=== PATIENT | female | born 1990 | race African-American/Black ===

== ENCOUNTER 2017-04-08 19:27 | Emergency (ER) | payer SELFPAY ==
[~2017-04-08] VITALS: Ht 167.6 cm; Wt 59.0 kg
[2017-04-08] MEDS ORDERED: IV NORMAL SALINE 1000ML BAG 1,000 ML IV SCH (19:35)
[2017-04-08] MEDS ORDERED: METOCLOPRAMIDE HCL 10 MG/2 ML VIAL. IV ONE (19:45)
[2017-04-08] MEDS ORDERED: ONDANSETRON PF 4 MG/2 ML VIAL. IV ONE (19:45)
[2017-04-08] MEDS ORDERED: fentaNYL PF VIAL 100 MCG/2 ML VIAL IV ONE (19:45)
--- NOTE | 2017-04-08 19:55 | PHYS DOC ---
Past Medical History Past Medical History: Diabetes-Type I, Other Additional Past Medical Histor: OVARIAN CYST,BLOOD CLOTS REMOVED FROM ABDOMEN Past Surgical History: Other Additional Past Surgical Histo: OVARIAN CYST REMOVED 03/24/17,BLOOD CLOTS REMOVED FROM ABDOMEN 03/19/17 Alcohol Use: None Drug Use: Marijuana Adult General Chief Complaint Chief Complaint: ABDOMINAL PAIN HPI HPI Patient is a 26 year old female brought to the ED by ambulance. The patient is complaining of abdominal pain, 10/10, which began today around noon. She has been vomiting since noon. The patient woke up and her stomach didn't feel very good this morning so she didn't have anything to eat and she didn't take her medicine. Then around noon, the pain and vomiting began. The patient has type 1 diabetes. Per EMS, her blood sugar was 364. They gave her 500 mL of saline and Zofran 4 mg. It seemed like the Zofran helped her vomiting for a short while during transit. The patient has had 2 surgeries recently at [facility]. She wanted to go there today, but they were closed due to multiple traumas in the ED. Her first surgery was March 27 and was for a twisted ovary with a cyst. The ovarian cyst was removed. She also had a surgery on April 04 for "blood clots" in her abdomen. From the description, it sounds like the patient had been having internal bleeding, there were "blood clots around her liver" that were removed. Patient's mom states that when she was admitted to the hospital on Wednesday with abdominal pain, her count was 24,000, after she had surgery and was released from the hospital on Wednesday, her white count was down to normal. Review of Systems Review of Systems Constitutional: Denies fever or chills [] Eyes: Denies change in visual acuity, redness, or eye pain [] HENT: Denies nasal congestion or sore throat [] Respiratory: Denies cough or shortness of breath [] Cardiovascular: Denies chest pain GI: As in history of present illness : denies Musculoskeletal: Denies back pain or joint pain [] Integument: Denies rash or skin lesions [] Neurologic: Denies headache, focal weakness or sensory changes [] Current Medications Current Medications Current Medications Medications (Trade) Dose Ordered Sig/Brianna Start Time Stop Time Status Last Admin Dose Admin Famotidine (Pepcid) 20 mg STK-MED ONCE 04/08/17 22:08 04/08/17 22:09 DC Fentanyl Citrate (Fentanyl 2ml Vial) 100 mcg 1X ONCE 04/08/17 19:45 04/08/17 19:46 DC 04/08/17 19:45 100 MCG Hydromorphone HCl (Dilaudid) 2 mg STK-MED ONCE 04/08/17 21:37 04/08/17 21:38 DC Info (Do NOT chart on this entry -- for MONITORING) 1 each PRN DAILY PRN 04/08/17 20:30 04/10/17 20:29 Insulin Human Regular 150 ml @ 0 mls/hr 1X ONCE 04/08/17 21:45 04/08/17 21:46 DC 04/08/17 21:45 6.2 MLS/HR Insulin Human Regular (NovoLIN R VIAL) 6 unit 1X ONCE 04/08/17 21:45 04/08/17 21:46 DC 04/08/17 21:45 6 UNIT Iohexol (Omnipaque 300 Mg/ml) 75 ml 1X ONCE 04/08/17 20:30 04/08/17 20:31 DC 04/08/17 20:37 75 ML Lorazepam (Ativan) 1 mg 1X ONCE 04/08/17 22:45 04/08/17 22:46 DC 04/08/17 22:45 1 MG Metoclopramide HCl (Reglan) 10 mg 1X ONCE 04/08/17 19:45 04/08/17 19:46 DC 04/08/17 19:45 10 MG Ondansetron HCl (Zofran) 4 mg 1X ONCE 04/08/17 19:45 04/08/17 19:46 DC 04/08/17 19:45 4 MG Piperacillin Sod/ Tazobactam Sod 3.375 gm/Sodium Chloride 50 ml @ 100 mls/hr 1X ONCE 04/08/17 22:00 04/08/17 22:29 DC 04/08/17 22:00 100 MLS/HR Potassium Chloride 100 ml @ 100 mls/hr Q1H 04/08/17 22:00 04/08/17 23:59 DC 04/08/17 21:58 100 MLS/HR Promethazine HCl 12.5 mg/Sodium Chloride 50.5 ml @ 151.5 mls/ hr PRN Q6HRS PRN 04/08/17 20:15 04/08/17 20:16 151.5 MLS/HR Sodium Chloride 1,000 ml @ 0 mls/hr 1X ONCE 04/08/17 22:30 04/08/17 22:31 DC 04/08/17 22:56 1,000 MLS/HR Allergies Allergies Allergies Coded Allergies Type Severity Reaction Last Updated Verified No Known Drug Allergies 04/08/17 No Physical Exam Physical Exam Constitutional: Actively vomiting stomach contents that does not appear bloody, rocking back and forth, appears very uncomfortable, alert, mentating normally. HENT: Normocephalic, atraumatic, bilateral external ears normal, nose normal. [] Eyes: conjunctiva normal, no discharge. [] Neck: Normal range of motion, no stridor. [] Cardiovascular:Heart rate regular rhythm, no murmur , tachycardic Lungs & Thorax: Bilateral breath sounds clear to auscultation [] Abdomen: Bowel sounds quiet to absent. Nondistended. Soft. Diffusely tender to light palpation. No rebound or guarding. Recent laparoscopy scars appear to be healing well, covered with skin adhesive. Skin: Warm, dry, no erythema, no rash. [] Back: No tenderness, no CVA tenderness. [] Extremities: No tenderness, no cyanosis, no clubbing, ROM intact, no edema. [] Neurologic: Alert and oriented X 3, normal motor function, normal sensory function, no focal deficits noted. [] Current Patient Data Vital Signs Vital Signs Date Time Temp Pulse Resp B/P (MAP) Pulse Ox O2 Delivery O2 Flow Rate FiO2 04/08/17 22:18 138 124/75 (91) 100 Room Air 04/08/17 20:15 24 04/08/17 19:27 98.0 98.0 Lab Values Laboratory Tests Test 04/08/17 19:16 04/08/17 19:55 04/08/17 20:10 04/08/17 21:53 POC Urine HCG, Qualitative Hcg negative (Negative) White Blood Count 18.3 x10^3/uL (4.0-11.0) H Red Blood Count 3.94 x10^6/uL (3.50-5.40) Hemoglobin 11.1 g/dL (12.0-15.5) L Hematocrit 35.1 % (36.0-47.0) L Mean Corpuscular Volume 89 fL (79-100) Mean Corpuscular Hemoglobin 28 pg (25-35) Mean Corpuscular Hemoglobin Concent 32 g/dL (31-37) Red Cell Distribution Width 14.6 % (11.5-14.5) H Platelet Count 563 x10^3/uL (140-400) H Neutrophils (%) (Auto) 87 % (31-73) H Lymphocytes (%) (Auto) 8 % (24-48) L Monocytes (%) (Auto) 4 % (0-9) Eosinophils (%) (Auto) 0 % (0-3) Basophils (%) (Auto) 1 % (0-3) Neutrophils # (Auto) 16.0 x10^3uL (1.8-7.7) H Lymphocytes # (Auto) 1.5 x10^3/uL (1.0-4.8) Monocytes # (Auto) 0.7 x10^3/uL (0.0-1.1) Eosinophils # (Auto) 0.0 x10^3/uL (0.0-0.7) Basophils # (Auto) 0.1 x10^3/uL (0.0-0.2) Segmented Neutrophils % 90 % (35-66) H Band Neutrophils % 2 % (0-9) Lymphocytes % 8 % (24-48) L Platelet Estimate Increased (ADEQUATE) [place] Cells Present Sodium Level 137 mmol/L (136-145) Potassium Level 4.0 mmol/L (3.5-5.1) Chloride Level 101 mmol/L (98-107) Carbon Dioxide Level 12 mmol/L (21-32) L Anion Gap 24 (6-14) H Blood Urea Nitrogen 8 mg/dL (7-20) Creatinine 0.9 mg/dL (0.6-1.0) Estimated GFR (Cockcroft-Gault) 90.9 BUN/Creatinine Ratio 9 (6-20) Glucose Level 402 mg/dL (70-99) H Calcium Level 9.1 mg/dL (8.5-10.1) Total Bilirubin 0.4 mg/dL (0.2-1.0) Aspartate Amino Transferase (AST) 13 U/L (15-37) L Alanine Aminotransferase (ALT) 14 U/L (14-59) Alkaline Phosphatase 62 U/L (46-116) Total Protein 7.9 g/dL (6.4-8.2) Albumin 3.6 g/dL (3.4-5.0) Albumin/Globulin Ratio 0.8 (1.0-1.7) L Lipase 117 U/L (73-393) Urine Collection Type Unknown Urine Color Yellow Urine Clarity Clear Urine pH 6.0 Urine Specific [place] 1.025 Urine Protein Negative mg/dL (NEG-TRACE) Urine Glucose (UA) >=1000 mg/dL (NEG) Urine Ketones (Stick) >=80 mg/dL (NEG) Urine Blood Large (NEG) Urine Nitrite Negative (NEG) Urine Bilirubin Negative (NEG) Urine Urobilinogen Dipstick 0.2 mg/dL (0.2 mg/dL) Urine Leukocyte Esterase Negative (NEG) Urine RBC >40 /HPF (0-2) Urine WBC 1-4 /HPF (0-4) Urine Squamous Epithelial Cells Few /LPF Urine Bacteria 0 /HPF (0-FEW) Glucose (Fingerstick) 368 mg/dL (70-99) H Test 04/08/17 22:11 Lactic Acid Level 3.3 mmol/L (0.4-2.0) H Laboratory Tests 04/08/17 19:55 Laboratory Tests 04/08/17 19:55 EKG EKG [] Radiology/Procedures Radiology/Procedures [] Course & Med Decision Making Course & Med Decision Making Pertinent Labs and Imaging studies reviewed. (See chart for details) Patient was medicated with IV fentanyl, Zofran, Phenergan, for pain and vomiting. She was given a liter of IV saline. She continued to be uncomfortable but was able to stop vomiting. White count 18 but she has been vomiting for 6 hours, which could account for that. Her CO2 is 12 and blood sugar is elevated in the 400s. I am initially treating this with a fluid bolus. I discussed the case with Dr. Komal Edwards, [employer] surgeon at [facility]. She was very familiar with the patient's case. She stated that if this turns out to be a surgical problem or something related to her recent surgeries, they would be glad to accept the patient in transfer. At this time, I am pending CT results to make that decision. (The reason [facility] was on diversion was ED traumas, not bed availability). I'm signing the patient out to Dr. Hank Mcleod at change of shift. He will evaluate CT results. ER attending note Dr. Pierce Mcleod Care assumed by me at 2100 patient tachycardic with laboratory findings consistent with metabolic acidosis and hyperglycemia with elevated anion gap suspicious for DKA. IV fluids being administered. Urinalysis returns with positive ketones. Insulin bolus and drip initiated. Patient has some urine output and potassium was initially 4.0 so supplementation was arranged at [address] results show complex collection of air and fluid behind the uterus possibly consistent with abscess. Given patient's white blood cell count of 18.3 and the state of her critical illness transfer to [facility] appropriate so patient can receive surgical consultation and care including surgical intervention as needed by her surgery team. This was patient and mother's intention when calling EMS however EMS was unable to take them there at that time because that hospital was on diversion. There is discussed with Reema Melendez nurse practitioner for Dr. Say Long at [facility]. Ms. Melendez is aware of history and findings and accept patient in transfer to the ICU on behalf of Dr. Long. They're aware of the history and findings and interventions made to this point and agree with no further workup or treatment at this time prior to transfer. Critical care 35 minutes [] Dragon Disclaimer Dragon Disclaimer This electronic medical record was generated, in whole or in part, using a voice recognition dictation system. Departure Departure Impression: Primary Impression: Diabetic ketoacidosis Additional Impressions: Tachycardia Metabolic acidosis Leukocytosis Systemic inflammatory response syndrome (SIRS) Problem Qualifiers ANTHONY SWAN MD Apr 08, 2017 19:55 PIERCE MCLEOD MD Apr 09, 2017 02:34
[2017-04-08 20:03] LABS: BASO # 0.1 x10^3/uL (0.0-0.2); BASO % 1 % (0-3); EOS % 0 % (0-3); HEMATOCRIT 35.1 % (36.0-47.0); HEMOGLOBIN 11.1 g/dL (12.0-15.5); LYMPH # 1.5 x10^3/uL (1.0-4.8); LYMPH % 8 % (24-48); MEAN CORPUSCULAR HEMOGLOBIN 28 pg (25-35); MEAN CORPUSCULAR HGB CONC 32 g/dL (31-37); MEAN CORPUSCULAR VOLUME 89 fL (79-100); MONO % 4 % (0-9); NEUT % 87 % (31-73); PLATELET COUNT 563 x10^3/uL (140-400); RED BLOOD COUNT 3.94 x10^6/uL (3.50-5.40); RED CELL DISTRIBUTION WIDTH 14.6 % (11.5-14.5); WHITE BLOOD COUNT 18.3 x10^3/uL (4.0-11.0)
[2017-04-08] MEDS ORDERED: PROMETHAZINE 12.5 MG in IV NORMAL SALINE 50ML 50 ML IV PRN (20:15)
[2017-04-08] MEDS: fentaNYL PF VIAL 100 MCG/2 ML VIAL IV PRN ×2 (20:16→20:52)
[2017-04-08 20:25] LABS: ALBUMIN 3.6 g/dL (3.4-5.0); ALBUMIN/GLOBULIN RATIO 0.8 (1.0-1.7); CALCIUM 9.1 mg/dL (8.5-10.1); CREATININE 0.9 mg/dL (0.6-1.0); TOTAL PROTEIN 7.9 g/dL (6.4-8.2)
[2017-04-08 20:26] LABS: GFR 90.9; TOTAL BILIRUBIN 0.4 mg/dL (0.2-1.0)
[2017-04-08 20:29] LABS: BURR CELLS PRESENT; PLT ESTIMATE INCREASED (ADEQUATE)
[2017-04-08] MEDS ORDERED: IOHEXOL 300 MG/ML 75 ML VIAL IV ONE (20:30)
[2017-04-08] MEDS ORDERED: CONTRAST GIVEN MC PRN (20:30)
[2017-04-08 20:57] LABS: BILIRUBIN,URINE NEGATIVE (NEG); GLUCOSE,URINE >=1000 mg/dL (NEG); NITRITE,URINE NEGATIVE (NEG); PROTEIN,URINE NEGATIVE (NEG-TRACE); UROBILINOGEN,URINE 0.2 mg/dL (0.2 mg/dL)
--- NOTE | 2017-04-08 21:01 | RAD ---
CT Abdomen and Pelvis With Intravenous Contrast: History: Severe abdominal pain, nausea and vomiting. Recent surgery. Leukocytosis. Comparison: None. Technique: After administration of intravenous contrast administration, 75 mL Omnipaque-300, CT of the abdomen and pelvis was performed. Exposure: One or more of the following individualized dose reduction techniques were utilized for this examination: 1. Automated exposure control 2. Adjustment of the mA and/or kV according to patient size 3. Use of iterative reconstruction technique Findings: Evaluation of enteric structures may be limited by lack of oral contrast. Evaluation for abscess is limited secondary to lack of oral contrast. Liver, spleen, pancreas, gallbladder, and bilateral adrenal glands unremarkable. Bilateral kidneys enhance symmetrically. No bowel obstruction is identified. Appendix is thought visualized and is without evidence of inflammation. Urinary bladder demonstrates some foci of intraluminal gas, thought likely secondary to recent catheterization. There is a small amount of free pneumoperitoneum, thought to likely postsurgical. There may be a peripherally enhancing fluid collection posterior to the urinary bladder in the pelvis. A few foci of intraluminal gas are suspected. This fluid collection could measure up to about 8 x 3 cm in axial dimension x 3.5 cm in craniocaudal dimension. It is is thought less likely to represent bowel loop, although that remains a possibility. Impression: 1. Significantly limited examination secondary to lack of oral contrast. 2. There may be a extraluminal gas and fluid collection posterior to the uterus. Consequently, this could represent abscess formation. That this could represent a bowel loop is possible, but thought less likely. Electronically signed by: Pierce Fuller MD (04/08/2017 8:58 PM)
[2017-04-08 21:02] LABS: BACTERIA,URINE 0 /HPF (0-FEW); RBC,URINE >40 /HPF (0-2); SQUAMOUS EPITHELIAL CELL,UR FEW /LPF
[2017-04-08] MEDS ORDERED: HYDROmorphone 2 MG/ML VIAL ONE (21:37)
[2017-04-08] MEDS ORDERED: INSULIN REGULAR 100 UNIT/ML 10ML VIAL. IV ONE (21:45)
[2017-04-08] MEDS ORDERED: INSULIN,REGULAR 150 UNIT DRIP 150 ML IV ONE (21:45)
[2017-04-08] MEDS ORDERED: HYDROmorphone 2 MG/ML VIAL IV ONE (21:45)
[2017-04-08] MEDS ORDERED: IV NORMAL SALINE 1000ML BAG 1,000 ML IV ONE ×2 (21:45→22:30)
[2017-04-08] MEDS ORDERED: POTASSIUM CHLORIDE 10MEQ 100 ML IV SCH (22:00)
[2017-04-08] MEDS ORDERED: PIPERACILLIN/TAZOBACTAM 3.375 GM in IV NORMAL SALINE 50ML 50 ML IV ONE (22:00)
[2017-04-08] MEDS ORDERED: FAMOTIDINE 20 MG/2 ML VIAL ONE (22:08)
[2017-04-08] MEDS ORDERED: FAMOTIDINE 20 MG/2 ML VIAL IVP ONE (22:15)
[2017-04-08 22:18] VITALS: BP 124/75
== END 2017-04-08 22:57 | disposition short-term general hospital (02) ==
LOC: ER 19:27 → MERGE 19:27 → ER 22:57
DX: E10.10 Type 1 diabetes mellitus with ketoacidosis without coma (principal); R00.0 Tachycardia, unspecified; E87.2 Acidosis; D72.829 Elevated white blood cell count, unspecified; R65.10 Systemic inflammatory response syndrome (SIRS) of non-infectious origin without acute organ dysfunction; F12.10 Cannabis abuse, uncomplicated
CPT/HCPCS: 36415; 74177; 80053; 81001; 81025; 82962; 83605; 83690; 85007; 85027; 87040; 96365; 96367; 96368; 96375; 96376; 99291; J1170; J1815; J2060; J2405; J2543; J2550; J2765; J3010; J3480; J7030; Q9967; S0028

== ENCOUNTER 2017-07-11 00:45 | Emergency (ER) | payer SELFPAY ==
[~2017-07-11] VITALS: Ht 167.6 cm; Wt 60.3 kg
[2017-07-11] MEDS ORDERED: IV NORMAL SALINE 1000ML BAG 1,000 ML IV ONE ×2 (01:00→03:30)
[2017-07-11 02:07] LABS: BILIRUBIN,URINE NEGATIVE (NEG); GLUCOSE,URINE >=1000 mg/dL (NEG); NITRITE,URINE NEGATIVE (NEG); PH,URINE 6.5; PROTEIN,URINE NEGATIVE (NEG-TRACE); UROBILINOGEN,URINE 0.2 mg/dL (0.2 mg/dL)
--- NOTE | 2017-07-11 02:11 | PHYS DOC ---
Past Medical History Past Medical History: Diabetes-Type I, Other Additional Past Medical Histor: OVARIAN CYST,BLOOD CLOTS REMOVED FROM ABDOMEN, "SPOTS ON LIVER" Past Surgical History: Other Additional Past Surgical Histo: OVARIAN CYST REMOVED 03/24/17,BLOOD CLOTS REMOVED FROM ABDOMEN 04/04/17 Alcohol Use: None Drug Use: Marijuana Adult General Chief Complaint Chief Complaint: ABDOMINAL PAIN HPI HPI Patient is a 26 year old female presents with complaints of abdominal pain and cramping as well as vomiting that is described as being nonbloody. No diarrhea. Patient is a diabetic and she states that her blood sugars have been between 100 and 150 the last couple days. Patient denies any fevers, chills, rashes, trauma, sick contacts. Patient states she tried to take by mouth's but she was unable to hold on fluids. Patient states she feels dehydrated. Review of Systems Review of Systems Constitutional: Denies fever or chills [] Eyes: Denies change in visual acuity, redness, or eye pain [] HENT: Denies nasal congestion or sore throat [] Respiratory: Denies cough or shortness of breath [] Cardiovascular: No chest pain GI: Denies bloody stools or diarrhea . Distal abdominal pain cramping, just vomiting : Denies dysuria or hematuria or vaginal discharge Musculoskeletal: Denies back pain or joint pain [] Integument: Denies rash or skin lesions [] Neurologic: Denies headache, focal weakness or sensory changes [] Endocrine: Denies polyuria. Yes to thirst Current Medications Current Medications Current Medications Medications (Trade) Dose Ordered Sig/Brianna Start Time Stop Time Status Last Admin Dose Admin Hyoscyamine (Anaspaz) 0.125 mg PRN Q4HRS PRN 07/11/17 02:15 07/11/17 02:26 0.125 MG Insulin Human Regular (NovoLIN R VIAL) 8 unit 1X ONCE 07/11/17 03:30 07/11/17 03:31 DC 07/11/17 03:43 8 UNIT Ketorolac Tromethamine (Toradol) 15 mg 1X ONCE 07/11/17 03:45 07/11/17 03:46 DC 07/11/17 03:44 15 MG Ondansetron HCl (Zofran) 4 mg 1X ONCE 07/11/17 04:30 07/11/17 04:31 Sodium Chloride 1,000 ml @ 1,000 mls/hr 1X ONCE 07/11/17 03:30 07/11/17 04:29 07/11/17 03:44 1,000 MLS/HR Allergies Allergies Allergies Coded Allergies Type Severity Reaction Last Updated Verified No Known Drug Allergies 01/23/16 No Physical Exam Physical Exam Constitutional: Well developed, well nourished, mild distress, non-toxic appearance. [] HENT: Normocephalic, atraumatic, oropharynx dry, no oral exudates, nose normal. [] Eyes: , EOMI, conjunctiva normal, no discharge. [] Neck: Normal range of motion, no tenderness, trachea midline, no stridor. [] Cardiovascular:Heart rate regular rhythm, no murmur, equal pulses, normal perfusion Lungs & Thorax: Bilateral breath sounds clear to auscultation, no tachypnea Abdomen: Bowel sounds normal, soft, mild and diffuse tenderness without guarding or rebound, no masses, no pulsatile masses. [] Skin: Warm, dry, no erythema, no rash. [] Back: No tenderness, no CVA tenderness. [] Extremities: No tenderness, no cyanosis, no DVT, ROM intact, no edema. [] Neurologic: Alert and oriented X 3, normal motor function, ambulates with normal gait and without assistance, no focal deficits noted. [] Psychologic: Affect normal, judgement normal, mood normal. [] Current Patient Data Vital Signs Vital Signs Date Time Temp Pulse Resp B/P (MAP) Pulse Ox O2 Delivery O2 Flow Rate FiO2 07/11/17 01:20 100.8 81 20 130/82 (98) 100 Room Air 100.8 Lab Values Laboratory Tests Test 07/11/17 01:00 07/11/17 01:38 07/11/17 02:00 Urine Collection Type Unknown Urine Color Yellow Urine Clarity Clear Urine pH 6.5 Urine Specific [place] >=1.030 Urine Protein Negative mg/dL (NEG-TRACE) Urine Glucose (UA) >=1000 mg/dL (NEG) Urine Ketones (Stick) 40 mg/dL (NEG) Urine Blood Negative (NEG) Urine Nitrite Negative (NEG) Urine Bilirubin Negative (NEG) Urine Urobilinogen Dipstick 0.2 mg/dL (0.2 mg/dL) Urine Leukocyte Esterase Negative (NEG) Urine RBC 1-2 /HPF (0-2) Urine WBC 5-10 /HPF (0-4) Urine Squamous Epithelial Cells Mod /LPF Urine Bacteria Few /HPF (0-FEW) Urine Opiates Screen Pos (NEG) Urine Methadone Screen Neg (NEG) Urine Barbiturates Neg (NEG) Urine Phencyclidine Screen Neg (NEG) Urine Amphetamine/Methamphetamine Neg (NEG) Urine Benzodiazepines Screen Neg (NEG) Urine Cocaine Screen Neg (NEG) Urine Cannabinoids Screen Pos (NEG) Urine Ethyl Alcohol Neg (NEG) POC Urine HCG, Qualitative Hcg negative (Negative) White Blood Count 15.0 x10^3/uL (4.0-11.0) H Red Blood Count 4.11 x10^6/uL (3.50-5.40) Hemoglobin 10.6 g/dL (12.0-15.5) L Hematocrit 32.9 % (36.0-47.0) L Mean Corpuscular Volume 80 fL (79-100) Mean Corpuscular Hemoglobin 26 pg (25-35) Mean Corpuscular Hemoglobin Concent 32 g/dL (31-37) Red Cell Distribution Width 15.4 % (11.5-14.5) H Platelet Count 253 x10^3/uL (140-400) Neutrophils (%) (Auto) 91 % (31-73) H Lymphocytes (%) (Auto) 6 % (24-48) L Monocytes (%) (Auto) 2 % (0-9) Eosinophils (%) (Auto) 0 % (0-3) Basophils (%) (Auto) 0 % (0-3) Neutrophils # (Auto) 13.7 x10^3uL (1.8-7.7) H Lymphocytes # (Auto) 0.9 x10^3/uL (1.0-4.8) L Monocytes # (Auto) 0.3 x10^3/uL (0.0-1.1) Eosinophils # (Auto) 0.0 x10^3/uL (0.0-0.7) Basophils # (Auto) 0.0 x10^3/uL (0.0-0.2) Platelet Estimate Pending Sodium Level 138 mmol/L (136-145) Potassium Level 3.6 mmol/L (3.5-5.1) Chloride Level 101 mmol/L (98-107) Carbon Dioxide Level 21 mmol/L (21-32) Anion Gap 16 (6-14) H Blood Urea Nitrogen 7 mg/dL (7-20) Creatinine 0.8 mg/dL (0.6-1.0) Estimated GFR (Cockcroft-Gault) 104.1 BUN/Creatinine Ratio 9 (6-20) Glucose Level 353 mg/dL (70-99) H Calcium Level 9.0 mg/dL (8.5-10.1) Total Bilirubin 0.3 mg/dL (0.2-1.0) Aspartate Amino Transferase (AST) 29 U/L (15-37) Alanine Aminotransferase (ALT) 31 U/L (14-59) Alkaline Phosphatase 85 U/L (46-116) Total Protein 7.6 g/dL (6.4-8.2) Albumin 3.6 g/dL (3.4-5.0) Albumin/Globulin Ratio 0.9 (1.0-1.7) L Laboratory Tests 07/11/17 02:00 Laboratory Tests 07/11/17 02:00 EKG EKG [] Radiology/Procedures Radiology/Procedures [] Course & Med Decision Making Course & Med Decision Making Pertinent Labs and Imaging studies reviewed. (See chart for details) [id number] patient in no distress, resting comfortably. Heart rate 95. No vomiting in the ED. I asked the patient was last and she is she to go. Medication she says she has been taking any I ask a couple more times and then she said that 3 days ago she had taking an unknown pain medication for headache by her grandmother supplied by her with. Abdomen remains soft and nondistended, very mild tenderness that is diffuse without guarding or rebound. The patient is not exhibiting any clinical signs of the DKA Patient looks well and comfortable. After the treatment in the ED a do not believe the patient needs any further inpatient evaluation and she is stable and improved for follow-up as an outpatient. I had long discussion with the patient regarding avoidance of drugs as they may be contributing to her presentation today. I suspicion for a significant intra-abdominal pathology or infectious pathology or metabolic derangement that needs immediate in patient care is very low at the time of this ED evaluation given the exam and vital signs as well as the lab results. The patient understands the need to follow-up and she agrees to do so as directed follow up is to be in one day [] Steffen Disclaimer Steffen Disclaimer This electronic medical record was generated, in whole or in part, using a voice recognition dictation system. Departure Departure Impression: Primary Impression: Hyperglycemia Additional Impressions: Dehydration Nausea & vomiting Cannabinoid hyperemesis syndrome Disposition: 01 HOME, SELF-CARE Condition: IMPROVED Referrals: NO PCP (PCP) Patient Instructions: Dehydration, Adult, [id number], Hyperglycemia, Easy-to- Read, Marijuana Abuse-Brief, Nausea and Vomiting, [id number] Additional Instructions: Please follow-up with your PCP for recheck and reevaluation in 1 day, you may also follow-up at one of the [place] in the list provided to you. If your symptoms worsen or new concerning symptoms develop please return to the ED immediately. Scripts Ondansetron Hcl (ZOFRAN) 4 Mg Tablet 1 TAB PO Q8HRS for 5 Days, #15 TAB Prov: Aldair PINZON MD 07/11/17 Hyoscyamine Sulfate (LEVSIN) 0.125 Mg Tablet 1 TAB PO TID, #20 TAB 1 Refill Prov: Aldair PINZON MD 07/11/17 Problem Qualifiers Aldair PINZON MD Jul 11, 2017 02:11
[2017-07-11] MEDS ORDERED: HYOSCYAMINE 0.125 MG TAB.RAPDIS PO PRN (02:15)
[2017-07-11 02:22] LABS: BACTERIA,URINE FEW /HPF (0-FEW); SQUAMOUS EPITHELIAL CELL,UR MOD /LPF
[2017-07-11] MEDS ORDERED: KETOROLAC 15 MG/ML VIAL. IV ONE ×2 (02:30→03:45)
[2017-07-11] MEDS ORDERED: ONDANSETRON PF 4 MG/2 ML VIAL. IV ONE ×2 (02:30→04:30)
[2017-07-11 02:38] LABS: BASO % 0 % (0-3); EOS % 0 % (0-3); HEMATOCRIT 32.9 % (36.0-47.0); HEMOGLOBIN 10.6 g/dL (12.0-15.5); LYMPH # 0.9 x10^3/uL (1.0-4.8); LYMPH % 6 % (24-48); MEAN CORPUSCULAR HEMOGLOBIN 26 pg (25-35); MEAN CORPUSCULAR HGB CONC 32 g/dL (31-37); MEAN CORPUSCULAR VOLUME 80 fL (79-100); MONO % 2 % (0-9); NEUT % 91 % (31-73); PLATELET COUNT 253 x10^3/uL (140-400); RED BLOOD COUNT 4.11 x10^6/uL (3.50-5.40); RED CELL DISTRIBUTION WIDTH 15.4 % (11.5-14.5)
[2017-07-11 02:40] LABS: BARBITURATES NEG (NEG); BENZODIAZEPINES NEG (NEG); CANNABINOIDS POS (NEG); COCAINE NEG (NEG); METHADONE NEG (NEG); OPIATES POS (NEG); PHENCYCLIDINE NEG (NEG)
[2017-07-11 02:51] LABS: CREATININE 0.8 mg/dL (0.6-1.0); GFR 104.1; POTASSIUM 3.6 mmol/L (3.5-5.1)
[2017-07-11 02:58] LABS: ALBUMIN 3.6 g/dL (3.4-5.0); ALBUMIN/GLOBULIN RATIO 0.9 (1.0-1.7); TOTAL BILIRUBIN 0.3 mg/dL (0.2-1.0); TOTAL PROTEIN 7.6 g/dL (6.4-8.2)
[2017-07-11] MEDS ORDERED: INSULIN REGULAR 100 UNIT/ML 10ML VIAL. IV ONE (03:30)
[2017-07-11 03:58] LABS: % EOS 2 % (0-5); PLT ESTIMATE ADEQUATE (ADEQUATE)
[2017-07-11 04:02] VITALS: BP 130/77
[2017-07-11] MEDS ORDERED: HYOS0.1264 PO (04:05)
[2017-07-11] MEDS ORDERED: ONDA4TAB7 PO (04:05)
== END 2017-07-11 04:28 | disposition home or self-care (01) ==
LOC: ER 00:45
DX: E86.0 Dehydration (principal); R10.84 Generalized abdominal pain; R11.2 Nausea with vomiting, unspecified; E10.65 Type 1 diabetes mellitus with hyperglycemia; T40.7X5A Adverse effect of cannabis (derivatives), initial encounter; Y92.89 Other specified places as the place of occurrence of the external cause
CPT/HCPCS: 36415; 80053; 80307; 81001; 81025; 82962; 85007; 85025; 87086; 96361; 96374; 96375; 96376; 99285; J1815; J1885; J2405; J7030; G0479

== ENCOUNTER 2019-07-06 09:17 | Inpatient (IN) | payer SELFPAY ==
[~2019-07-06] VITALS: Ht 162.6 cm; Wt 59.9 kg
[~2019-07-06 09:17] MED LIST: HYOS0.1264 PO; ONDA4TAB7 PO
[2019-07-06] MEDS ORDERED: FAMOTIDINE 20 MG/2 ML VIAL IVP ONE (10:15)
[2019-07-06] MEDS ORDERED: IV NORMAL SALINE 1000ML BAG 1,000 ML IV ONE ×2 (10:15→11:30)
[2019-07-06] MEDS ORDERED: ONDANSETRON PF 4 MG/2 ML VIAL. IV ONE (10:15)
--- NOTE | 2019-07-06 10:17 | PHYS DOC ---
Past Medical History Past Medical History: Diabetes-Type I, Other Additional Past Medical Histor: OVARIAN CYST,BLOOD CLOTS REMOVED FROM ABDOMEN, "SPOTS ON LIVER" Past Surgical History: Other Additional Past Surgical Histo: OVARIAN CYST REMOVED 03/24/17,BLOOD CLOTS REMOVED FROM ABDOMEN 04/04/17 Alcohol Use: None Drug Use: Marijuana Social History Narrative: smells strongly of marijuana, denies use today Adult General Chief Complaint Chief Complaint: NAUSEA/VOMITING/DIARRHA HPI HPI Patient is a 28 year old female with a history of diabetes type 1 who presents to the ED today complaining of moderate generalized abdominal pain with nausea, vomiting that began a couple days ago. Patient states she was discharged from [facility] yesterday, where she had been admitted for 3 days. She states they did not do anything for her during her admission at . Patient states she's continued to have nausea and vomiting through the night as well as abdominal pain. She is very restless currently crying out in pain. She is also complaining of hematemesis. Denies any diarrhea. She will not answer most of the questions. Review of Systems Review of Systems Constitutional: Denies fever or chills [] Eyes: Denies change in visual acuity, redness, or eye pain [] HENT: Denies nasal congestion or sore throat [] Respiratory: Denies cough or shortness of breath [] Cardiovascular: No additional information not addressed in HPI [] GI: Reports abdominal pain, nausea and vomiting. Denies diarrhea [] : Denies dysuria or hematuria [] Musculoskeletal: Denies back pain or joint pain [] Integument: Denies rash or skin lesions [] Neurologic: Denies headache, focal weakness or sensory changes [] All other systems were reviewed and found to be within normal limits, except as documented in this note. Current Medications Current Medications Current Medications Medications (Trade) Dose Ordered Sig/Brianna Start Time Stop Time Status Last Admin Dose Admin Famotidine (Pepcid Vial) 20 mg 1X ONCE 07/06/19 10:15 07/06/19 10:16 DC 07/06/19 10:17 20 MG Haloperidol Lactate (Haldol Inj) 5 mg 1X ONCE 07/06/19 11:15 07/06/19 11:16 DC 07/06/19 11:36 5 MG Insulin Human Regular (HumuLIN R VIAL) 5 unit 1X ONCE 07/06/19 11:30 07/06/19 11:31 DC 07/06/19 11:42 5 UNIT Metoclopramide HCl (Reglan Vial) 10 mg 1X ONCE 07/06/19 14:00 07/06/19 14:01 DC 07/06/19 13:47 10 MG Ondansetron HCl (Zofran) 4 mg 1X ONCE 07/06/19 10:15 07/06/19 10:16 DC 07/06/19 10:15 4 MG Prochlorperazine Edisylate (Compazine) 10 mg 1X ONCE 07/06/19 11:15 07/06/19 11:16 DC 07/06/19 11:33 10 MG Sodium Chloride 1,000 ml @ 125 mls/hr 1X ONCE 07/06/19 11:30 07/06/19 19:29 07/06/19 11:39 125 MLS/HR Allergies Allergies Allergies Coded Allergies Type Severity Reaction Last Updated Verified No Known Drug Allergies 01/23/16 No Physical Exam Physical Exam Constitutional: Well developed, well nourished, no acute distress, non-toxic appearance. [] HENT: Normocephalic, atraumatic, bilateral external ears normal, oropharynx moist, no oral exudates, nose normal. [] Eyes: PERRLA, EOMI, conjunctiva normal, no discharge. [] Neck: Normal range of motion, no tenderness, supple, no stridor. [] Cardiovascular:Heart rate regular rhythm, no murmur [] Lungs & Thorax: Bilateral breath sounds clear to auscultation [] Abdomen: Bowel sounds normal, soft, diffuse tenderness throughout the abdomen, no masses, no pulsatile masses. [] Skin: Warm, dry, no erythema, no rash. [] Back: No tenderness, no CVA tenderness. [] Extremities: No tenderness, no cyanosis, no clubbing, ROM intact, no edema. [] Neurologic: Alert and oriented X 3, normal motor function, normal sensory function, no focal deficits noted. [] Psychologic: Restless, crying out loud, thrashing around in bed Current Patient Data Vital Signs Vital Signs Date Time Temp Pulse Resp B/P (MAP) Pulse Ox O2 Delivery O2 Flow Rate FiO2 07/06/19 13:49 104 20 122/84 (97) 98 Room Air 07/06/19 09:33 97.3 97.3 Lab Values Laboratory Tests Test 07/06/19 10:20 07/06/19 13:20 07/06/19 13:25 White Blood Count 12.3 x10^3/uL (4.0-11.0) H Red Blood Count 4.34 x10^6/uL (3.50-5.40) Hemoglobin 12.3 g/dL (12.0-15.5) Hematocrit 37.1 % (36.0-47.0) Mean Corpuscular Volume 86 fL (79-100) Mean Corpuscular Hemoglobin 28 pg (25-35) Mean Corpuscular Hemoglobin Concent 33 g/dL (31-37) Red Cell Distribution Width 14.7 % (11.5-14.5) H Platelet Count 305 x10^3/uL (140-400) Neutrophils (%) (Auto) 90 % (31-73) H Lymphocytes (%) (Auto) 7 % (24-48) L Monocytes (%) (Auto) 3 % (0-9) Eosinophils (%) (Auto) 0 % (0-3) Basophils (%) (Auto) 1 % (0-3) Neutrophils # (Auto) 11.0 x10^3/uL (1.8-7.7) H Lymphocytes # (Auto) 0.8 x10^3/uL (1.0-4.8) L Monocytes # (Auto) 0.4 x10^3/uL (0.0-1.1) Eosinophils # (Auto) 0.0 x10^3/uL (0.0-0.7) Basophils # (Auto) 0.1 x10^3/uL (0.0-0.2) Segmented Neutrophils % 94 % (35-66) H Lymphocytes % 6 % (24-48) L Platelet Estimate Adequate (ADEQUATE) Sodium Level 139 mmol/L (136-145) Potassium Level 3.5 mmol/L (3.5-5.1) Chloride Level 100 mmol/L (98-107) Carbon Dioxide Level 26 mmol/L (21-32) Anion Gap 13 (6-14) Blood Urea Nitrogen 6 mg/dL (7-20) L Creatinine 0.8 mg/dL (0.6-1.0) Estimated GFR (Cockcroft-Gault) 102.6 BUN/Creatinine Ratio 8 (6-20) Glucose Level 323 mg/dL (70-99) H Calcium Level 9.2 mg/dL (8.5-10.1) Total Bilirubin 0.3 mg/dL (0.2-1.0) Aspartate Amino Transferase (AST) 26 U/L (15-37) Alanine Aminotransferase (ALT) 26 U/L (14-59) Alkaline Phosphatase 76 U/L (46-116) Total Protein 7.8 g/dL (6.4-8.2) Albumin 3.7 g/dL (3.4-5.0) Albumin/Globulin Ratio 0.9 (1.0-1.7) L Lipase 63 U/L (73-393) L Ethyl Alcohol Level < 10 mg/dL (0-10) Urine Collection Type Unknown Urine Color Yellow Urine Clarity Clear Urine pH 5.5 Urine Specific [place] >=1.030 Urine Protein Negative mg/dL (NEG-TRACE) Urine Glucose (UA) >=1000 mg/dL (NEG) Urine Ketones (Stick) 40 mg/dL (NEG) Urine Blood Negative (NEG) Urine Nitrite Negative (NEG) Urine Bilirubin Negative (NEG) Urine Urobilinogen Dipstick 0.2 mg/dL (0.2 mg/dL) Urine Leukocyte Esterase Trace (NEG) Urine RBC Rare /HPF (0-2) Urine WBC 5-10 /HPF (0-4) Urine Squamous Epithelial Cells Many /LPF Urine Bacteria Mod /HPF (0-FEW) Urine Mucus Slight /LPF Urine Trichomonas Present Urine Opiates Screen Neg (NEG) Urine Methadone Screen Neg (NEG) Urine Barbiturates Neg (NEG) Urine Phencyclidine Screen Neg (NEG) Urine Amphetamine/Methamphetamine Neg (NEG) Urine Benzodiazepines Screen Neg (NEG) Urine Cocaine Screen Neg (NEG) Urine Cannabinoids Screen Pos (NEG) Urine Ethyl Alcohol Neg (NEG) POC Urine HCG, Qualitative Hcg negative (Negative) Laboratory Tests 07/06/19 10:20 Laboratory Tests 07/06/19 10:20 EKG EKG [] Radiology/Procedures Radiology/Procedures [] Course & Med Decision Making Course & Med Decision Making Pertinent Labs and Imaging studies reviewed. (See chart for details) This is a 28-year-old female patient presenting to the ED today complaining of nausea vomiting and abdominal pain, symptoms began a couple days ago, patient was just discharged from [facility] yesterday. Patient arrives in the ED restless, thrashing around. Patient is proceeding call light every few minutes asking for pain medicine. CBC with a WBC of 12.3, CMP with glucose of 323, anion gap is normal. Sodium is normal. Urine noted for 40 ketones, specific gravity greater than 1.030, urine was also noted for Trichomonas, patient was treated. Patient was given IV fluids in the ED, Grace Murphy, she has continued complaining of nausea and vomiting. Spoke with Dr. Basurto to accepted patient for admission Routine consult placed for GI Steffen Disclaimer Dragon Disclaimer This electronic medical record was generated, in whole or in part, using a voice recognition dictation system. 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
[2019-07-06 10:28] LABS: BASO # 0.1 x10^3/uL (0.0-0.2); BASO % 1 % (0-3); EOS % 0 % (0-3); HEMATOCRIT 37.1 % (36.0-47.0); HEMOGLOBIN 12.3 g/dL (12.0-15.5); LYMPH # 0.8 x10^3/uL (1.0-4.8); LYMPH % 7 % (24-48); MEAN CORPUSCULAR HEMOGLOBIN 28 pg (25-35); MEAN CORPUSCULAR HGB CONC 33 g/dL (31-37); MEAN CORPUSCULAR VOLUME 86 fL (79-100); MONO # 0.4 x10^3/uL (0.0-1.1); MONO % 3 % (0-9); NEUT % 90 % (31-73); PLATELET COUNT 305 x10^3/uL (140-400); RED BLOOD COUNT 4.34 x10^6/uL (3.50-5.40); RED CELL DISTRIBUTION WIDTH 14.7 % (11.5-14.5); WHITE BLOOD COUNT 12.3 x10^3/uL (4.0-11.0)
[2019-07-06 10:36] LABS: CALCIUM 9.2 mg/dL (8.5-10.1); CREATININE 0.8 mg/dL (0.6-1.0); GFR 102.6; POTASSIUM 3.5 mmol/L (3.5-5.1)
[2019-07-06 10:42] LABS: ALBUMIN 3.7 g/dL (3.4-5.0); ALBUMIN/GLOBULIN RATIO 0.9 (1.0-1.7); TOTAL BILIRUBIN 0.3 mg/dL (0.2-1.0); TOTAL PROTEIN 7.8 g/dL (6.4-8.2)
[2019-07-06] MEDS ORDERED: HALOPERIDOL LACTATE 5 MG/ML VIAL. IVP ONE (11:15)
[2019-07-06] MEDS ORDERED: PROCHLORPERAZINE 10 MG/2 ML VIAL. IV ONE (11:15)
[2019-07-06] MEDS ORDERED: INSULIN REGULAR 100 UNIT/ML 3ML VIAL. IV ONE (11:30)
[2019-07-06 12:34] LABS: % LYMPHS 6 % (24-48); % SEGS 94 % (35-66); PLT ESTIMATE ADEQUATE (ADEQUATE)
[2019-07-06 13:39] LABS: BILIRUBIN,URINE NEGATIVE (NEG); CLARITY,URINE CLEAR; COLOR,URINE YELLOW; NITRITE,URINE NEGATIVE (NEG); PH,URINE 5.5; PROTEIN,URINE NEGATIVE (NEG-TRACE); UROBILINOGEN,URINE 0.2 mg/dL (0.2 mg/dL)
[2019-07-06 13:42] LABS: BARBITURATES NEG (NEG); BENZODIAZEPINES NEG (NEG); CANNABINOIDS POS (NEG); COCAINE NEG (NEG); METHADONE NEG (NEG); OPIATES NEG (NEG); PHENCYCLIDINE NEG (NEG)
[2019-07-06 13:44] LABS: AMPHETAMINE/METHAMPHETAMINE NEG (NEG)
[2019-07-06 13:46] LABS: RBC,URINE RARE /HPF (0-2)
[2019-07-06 13:47] LABS: BACTERIA,URINE MOD /HPF (0-FEW); SQUAMOUS EPITHELIAL CELL,UR MANY /LPF; TRICHOMONAS,URINE PRESENT
[2019-07-06] MEDS ORDERED: METOCLOPRAMIDE HCL 10 MG/2 ML VIAL. IV ONE (14:00)
[2019-07-06] MEDS ORDERED: PROMETHAZINE 25 MG SUPP.RECT. PR ONE (14:15)
[2019-07-06] MEDS ORDERED: metroNIDAZOLE 500 MG TABLET PO ONE (14:15)
[2019-07-06] MEDS ORDERED: AZITHROMYCIN 250 MG TABLET. PO ONE (14:15)
--- NOTE | 2019-07-06 14:25 | PDOC1 ---
History and Physical Date of Admission Date of Admission DATE: 07/06/19 TIME: 14:22 Identification/Chief Complaint Chief Complaint SEEN IN ER , 28 year old female with a history of diabetes type 1 who presents to the ED today complaining of moderate generalized abdominal pain with nausea, vomiting that began a couple days ago. Patient states she was discharged from [facility] yesterday, where she had been admitted for 3 days. She states they did not do anything for her during her admission at . Patient states she's continued to have nausea and vomiting through the night as well as abdominal pain. Past Medical History Past Medical History Past Medical History Past Medical History: Diabetes-Type I, Other Additional Past Medical Histor: OVARIAN CYST,BLOOD CLOTS REMOVED FROM ABDOMEN, "SPOTS ON LIVER" Past Surgical History: Other Additional Past Surgical Histo: OVARIAN CYST REMOVED 03/24/17,BLOOD CLOTS REMOVED FROM ABDOMEN 04/04/17 Alcohol Use: None Drug Use: Marijuana FHX HTN Family History Family History: Hypertension Social History Smoke: <1 pack per day ALCOHOL: occassional Drugs: Marijuana Current Problem List Problem List Problems Medical Problems: (1) Nausea and vomiting Status: Acute Current Medications Current Medications Current Medications Sodium Chloride 1,000 ml @ 1,000 mls/hr 1X ONCE IV Last administered on 07/06/19at 10:14; Start 07/06/19 at 10:15; Stop 07/06/19 at 11:14; Status DC Famotidine (Pepcid Vial) 20 mg 1X ONCE IVP Last administered on 07/06/19at 10:17; Start 07/06/19 at 10:15; Stop 07/06/19 at 10:16; Status DC Ondansetron HCl (Zofran) 4 mg 1X ONCE IV Last administered on 07/06/19at 10:15; Start 07/06/19 at 10:15; Stop 07/06/19 at 10:16; Status DC Haloperidol Lactate (Haldol Inj) 5 mg 1X ONCE IVP Last administered on 07/06/19 at 11:36; Start 07/06/19 at 11:15; Stop 07/06/19 at 11:16; Status DC Prochlorperazine Edisylate (Compazine) 10 mg 1X ONCE IV Last administered on 07/06/19at 11:33; Start 07/06/19 at 11:15; Stop 07/06/19 at 11:16; Status DC Insulin Human Regular (HumuLIN R VIAL) 5 unit 1X ONCE IV Last administered on 07/06/19at 11:42; Start 07/06/19 at 11:30; Stop 07/06/19 at 11:31; Status DC Sodium Chloride 1,000 ml @ 125 mls/hr 1X ONCE IV Last administered on 07/06/19at 11:39; Start 07/06/19 at 11:30; Stop 07/06/19 at 19:29 Metoclopramide HCl (Reglan Vial) 10 mg 1X ONCE IV Last administered on 07/06/19at 13:47; Start 07/06/19 at 14:00; Stop 07/06/19 at 14:01; Status DC Azithromycin (Zithromax) 1,000 mg 1X ONCE PO ; Start 07/06/19 at 14:15; Stop 07/06/19 at 14:16; Status DC Metronidazole (Flagyl) 2,000 mg 1X ONCE PO ; Start 07/06/19 at 14:15; Stop 07/06/19 at 14:16; Status DC Promethazine HCl (Phenergan Supp) 25 mg 1X ONCE MD ; Start 07/06/19 at 14:15; Stop 07/06/19 at 14:16; Status DC Active Scripts Active Zofran (Ondansetron Hcl) 4 Mg Tablet 1 Tab PO Q8HRS 5 Days Levsin (Hyoscyamine Sulfate) 0.125 Mg Tablet 1 Tab PO TID Allergies Allergies: Coded Allergies: No Known Drug Allergies (Unverified , 01/23/16) ROS Review of System Review of Systems Review of Systems Constitutional: Denies fever or chills [] Eyes: Denies change in visual acuity, redness, or eye pain [] HENT: Denies nasal congestion or sore throat [] Respiratory: Denies cough or shortness of breath [] Cardiovascular: No additional information not addressed in HPI [] GI: Reports abdominal pain, nausea and vomiting. Denies diarrhea [] : Denies dysuria or hematuria [] Musculoskeletal: Denies back pain or joint pain [] Integument: Denies rash or skin lesions [] Neurologic: Denies headache, focal weakness or sensory changes [] 14 PT systems were reviewed and found to be within normal limits, except as documented Physical Exam Physical Exam Physical Exam Physical Exam Constitutional: Well developed, well nourished, no acute distress, non-toxic appearance. [] HENT: Normocephalic, atraumatic, bilateral external ears normal, oropharynx moist, no oral exudates, nose normal. [] Eyes: PERRLA, EOMI, conjunctiva normal, no discharge. [] Neck: Normal range of motion, no tenderness, supple, no stridor. [] Cardiovascular:Heart rate regular rhythm, no murmur [] Lungs & Thorax: Bilateral breath sounds clear to auscultation [] Abdomen: Bowel sounds normal, soft, diffuse tenderness throughout the abdomen, no masses, no pulsatile masses. [] Skin: Warm, dry, no erythema, no rash. [] Back: No tenderness, no CVA tenderness. [] Extremities: No tenderness, no cyanosis, no clubbing, ROM intact, no edema. [] Neurologic: Alert and oriented X 3, normal motor function, normal sensory function, no focal deficits noted. [] Psychologic: Restless, General: Alert, Oriented X3, Cooperative HEENT: Atraumatic, EOMI, Mucous membr. moist/pink Lungs: Clear to auscultation, Normal air movement Heart: RRR, no jug vein distention Breasts: Not examined Abdomen: Normal bowel sounds, Soft PELVIC: Examination not indicated Extremities: No cyanosis, No edema Neuro: Normal speech, Cranial nerves 3-12 NL Psych/Mental Status: Mental status NL, Mood NL Vitals Vitals Vital Signs Date Time Temp Pulse Resp B/P (MAP) Pulse Ox O2 Delivery O2 Flow Rate FiO2 07/06/19 13:49 104 20 122/84 (97) 98 Room Air 07/06/19 09:33 97.3 97.3 Labs Labs Laboratory Tests Test 07/06/19 10:20 07/06/19 13:20 07/06/19 13:25 White Blood Count 12.3 x10^3/uL (4.0-11.0) Red Blood Count 4.34 x10^6/uL (3.50-5.40) Hemoglobin 12.3 g/dL (12.0-15.5) Hematocrit 37.1 % (36.0-47.0) Mean Corpuscular Volume 86 fL (79-100) Mean Corpuscular Hemoglobin 28 pg (25-35) Mean Corpuscular Hemoglobin Concent 33 g/dL (31-37) Red Cell Distribution Width 14.7 % (11.5-14.5) Platelet Count 305 x10^3/uL (140-400) Neutrophils (%) (Auto) 90 % (31-73) Lymphocytes (%) (Auto) 7 % (24-48) Monocytes (%) (Auto) 3 % (0-9) Eosinophils (%) (Auto) 0 % (0-3) Basophils (%) (Auto) 1 % (0-3) Neutrophils # (Auto) 11.0 x10^3/uL (1.8-7.7) Lymphocytes # (Auto) 0.8 x10^3/uL (1.0-4.8) Monocytes # (Auto) 0.4 x10^3/uL (0.0-1.1) Eosinophils # (Auto) 0.0 x10^3/uL (0.0-0.7) Basophils # (Auto) 0.1 x10^3/uL (0.0-0.2) Segmented Neutrophils % 94 % (35-66) Lymphocytes % 6 % (24-48) Platelet Estimate Adequate (ADEQUATE) Sodium Level 139 mmol/L (136-145) Potassium Level 3.5 mmol/L (3.5-5.1) Chloride Level 100 mmol/L (98-107) Carbon Dioxide Level 26 mmol/L (21-32) Anion Gap 13 (6-14) Blood Urea Nitrogen 6 mg/dL (7-20) Creatinine 0.8 mg/dL (0.6-1.0) Estimated GFR (Cockcroft-Gault) 102.6 BUN/Creatinine Ratio 8 (6-20) Glucose Level 323 mg/dL (70-99) Calcium Level 9.2 mg/dL (8.5-10.1) Total Bilirubin 0.3 mg/dL (0.2-1.0) Aspartate Amino Transf (AST/SGOT) 26 U/L (15-37) Alanine Aminotransferase (ALT/SGPT) 26 U/L (14-59) Alkaline Phosphatase 76 U/L (46-116) Total Protein 7.8 g/dL (6.4-8.2) Albumin 3.7 g/dL (3.4-5.0) Albumin/Globulin Ratio 0.9 (1.0-1.7) Lipase 63 U/L (73-393) Ethyl Alcohol Level < 10 mg/dL (0-10) Urine Collection Type Unknown Urine Color Yellow Urine Clarity Clear Urine pH 5.5 Urine Specific [place] >=1.030 Urine Protein Negative mg/dL (NEG-TRACE) Urine Glucose (UA) >=1000 mg/dL (NEG) Urine Ketones (Stick) 40 mg/dL (NEG) Urine Blood Negative (NEG) Urine Nitrite Negative (NEG) Urine Bilirubin Negative (NEG) Urine Urobilinogen Dipstick 0.2 mg/dL (0.2 mg/dL) Urine Leukocyte Esterase Trace (NEG) Urine RBC Rare /HPF (0-2) Urine WBC 5-10 /HPF (0-4) Urine Squamous Epithelial Cells Many /LPF Urine Bacteria Mod /HPF (0-FEW) Urine Mucus Slight /LPF Urine Trichomonas Present Urine Opiates Screen Neg (NEG) Urine Methadone Screen Neg (NEG) Urine Barbiturates Neg (NEG) Urine Phencyclidine Screen Neg (NEG) Urine Amphetamine/Methamphetamine Neg (NEG) Urine Benzodiazepines Screen Neg (NEG) Urine Cocaine Screen Neg (NEG) Urine Cannabinoids Screen Pos (NEG) Urine Ethyl Alcohol Neg (NEG) Bedside Urine HCG, Qualitative Hcg negative (Negative) Laboratory Tests Test 07/06/19 10:20 07/06/19 13:20 07/06/19 13:25 White Blood Count 12.3 x10^3/uL (4.0-11.0) Red Blood Count 4.34 x10^6/uL (3.50-5.40) Hemoglobin 12.3 g/dL (12.0-15.5) Hematocrit 37.1 % (36.0-47.0) Mean Corpuscular Volume 86 fL (79-100) Mean Corpuscular Hemoglobin 28 pg (25-35) Mean Corpuscular Hemoglobin Concent 33 g/dL (31-37) Red Cell Distribution Width 14.7 % (11.5-14.5) Platelet Count 305 x10^3/uL (140-400) Neutrophils (%) (Auto) 90 % (31-73) Lymphocytes (%) (Auto) 7 % (24-48) Monocytes (%) (Auto) 3 % (0-9) Eosinophils (%) (Auto) 0 % (0-3) Basophils (%) (Auto) 1 % (0-3) Neutrophils # (Auto) 11.0 x10^3/uL (1.8-7.7) Lymphocytes # (Auto) 0.8 x10^3/uL (1.0-4.8) Monocytes # (Auto) 0.4 x10^3/uL (0.0-1.1) Eosinophils # (Auto) 0.0 x10^3/uL (0.0-0.7) Basophils # (Auto) 0.1 x10^3/uL (0.0-0.2) Segmented Neutrophils % 94 % (35-66) Lymphocytes % 6 % (24-48) Platelet Estimate Adequate (ADEQUATE) Sodium Level 139 mmol/L (136-145) Potassium Level 3.5 mmol/L (3.5-5.1) Chloride Level 100 mmol/L (98-107) Carbon Dioxide Level 26 mmol/L (21-32) Anion Gap 13 (6-14) Blood Urea Nitrogen 6 mg/dL (7-20) Creatinine 0.8 mg/dL (0.6-1.0) Estimated GFR (Cockcroft-Gault) 102.6 BUN/Creatinine Ratio 8 (6-20) Glucose Level 323 mg/dL (70-99) Calcium Level 9.2 mg/dL (8.5-10.1) Total Bilirubin 0.3 mg/dL (0.2-1.0) Aspartate Amino Transf (AST/SGOT) 26 U/L (15-37) Alanine Aminotransferase (ALT/SGPT) 26 U/L (14-59) Alkaline Phosphatase 76 U/L (46-116) Total Protein 7.8 g/dL (6.4-8.2) Albumin 3.7 g/dL (3.4-5.0) Albumin/Globulin Ratio 0.9 (1.0-1.7) Lipase 63 U/L (73-393) Ethyl Alcohol Level < 10 mg/dL (0-10) Urine Collection Type Unknown Urine Color Yellow Urine Clarity Clear Urine pH 5.5 Urine Specific [place] >=1.030 Urine Protein Negative mg/dL (NEG-TRACE) Urine Glucose (UA) >=1000 mg/dL (NEG) Urine Ketones (Stick) 40 mg/dL (NEG) Urine Blood Negative (NEG) Urine Nitrite Negative (NEG) Urine Bilirubin Negative (NEG) Urine Urobilinogen Dipstick 0.2 mg/dL (0.2 mg/dL) Urine Leukocyte Esterase Trace (NEG) Urine RBC Rare /HPF (0-2) Urine WBC 5-10 /HPF (0-4) Urine Squamous Epithelial Cells Many /LPF Urine Bacteria Mod /HPF (0-FEW) Urine Mucus Slight /LPF Urine Trichomonas Present Urine Opiates Screen Neg (NEG) Urine Methadone Screen Neg (NEG) Urine Barbiturates Neg (NEG) Urine Phencyclidine Screen Neg (NEG) Urine Amphetamine/Methamphetamine Neg (NEG) Urine Benzodiazepines Screen Neg (NEG) Urine Cocaine Screen Neg (NEG) Urine Cannabinoids Screen Pos (NEG) Urine Ethyl Alcohol Neg (NEG) Bedside Urine HCG, Qualitative Hcg negative (Negative) VTE Prophylaxis Ordered VTE Prophylaxis Devices: Yes VTE Pharmacological Prophylaxi: Yes Assessment/Plan Assessment/Plan IMPRESSION 1. INTRACTABLE NAUSEA, VOMITING 2. THC ABUSE 3. DEHYDRATION 4. DIABETES .///poorly controlled gastroparesis. Medical therapy for symptom control. US assess for GB disease PLAN ADMIT IV FLUID SUPPORT ACCUCHECKS SS INSULIN DVT PROPHYLAXIS GI CONSULT 56 MIN PT EXAM, CHART REVIEW, > 50% OF TIME SPENT WITH EXAM, CHART REVIEW, PT CARE COORDINATION SHELLEY WATERS MD Jul 06, 2019 14:25
[2019-07-06] MEDS ORDERED: 0.9 % SODIUM CHLORIDE 10 ML DISP.SYRIN. IV PRN (14:30)
[2019-07-06] MEDS ORDERED: MULTIVIT INFUSN,ADULT 4,VIT K 10 ML, THIAMINE INJ 100 MG, FOLIC ACID INJ 1 MG in IV NOR... IV ONE (14:30)
[2019-07-06] MEDS ORDERED: guaiFENesin ORAL 200 MG/10 ML LIQUID. PO PRN (14:30)
[2019-07-06] MEDS ORDERED: ONDANSETRON PF 4 MG/2 ML VIAL. IV PRN (14:30)
[2019-07-06] MEDS ORDERED: AZITHRMYCN 500MG IVPB FOR OMNI 250 ML IV ONE (14:30)
[2019-07-06] MEDS ORDERED: cloNIDine HCL 0.1 MG TABLET PO PRN (14:30)
[2019-07-06] MEDS ORDERED: PROCHLORPERAZINE 10 MG/2 ML VIAL. IV PRN (14:30)
[2019-07-06] MEDS ORDERED: ALBUTEROL SULFATE 2.5 MG/3 ML NEBU. NEB PRN (14:30)
[2019-07-06] MEDS ORDERED: DOCUSATE SODIUM 100 MG CAPSULE. PO PRN (14:30)
[2019-07-06] MEDS ORDERED: IV NORMAL SALINE 1000ML BAG 1,000 ML IV SCH (14:30)
[2019-07-06] MEDS ORDERED: ACETAMINOPHEN 325 MG TABLET. PO PRN (14:30)
[2019-07-06] MEDS ORDERED: NPH,100V SQ (16:23)
--- NOTE | 2019-07-06 16:26 | PDOC2 ---
GI CONSULT Reason For Consult: N/v HPI: HPI: 28 y/o female seen in ER - majority of history from mother Sharon. H/o type 1 diabetes diagnosed 7 years ago. Issues w/ n/v and abd pain (mid - "I just feel sick") since then. Worse x 1-2 months. "Bare minimum" workup per mom w/o insurance. Recent DKA, "in and out of [facility]" - just discharged yesterday. Mom mentions had a CT and GI cocktail didn't work. Also recently treated for UTI and "white count was high." No reflux/heartburn, dysphagia, diarrhea, constipation, hematochezia, or melena. Has lost a few pounds. Sometimes emesis looks pinkish. Last stooled 3 days ago. No previous EGD or colonoscopy. Can't recall previous GB imaging or GES. Takes Tylenol, no NSAIDs. Thinks last A1c was 10. PMH: PMH: DM, UTI, histoplasmosis, ?RA ovarian cyst removal w/ second surgery for complications/bleeding FH: Family History: Other (mother - GB disease) Social History: Drugs: Marijuana ROS: Difficult obtaining - per HPI. Vitals: Vitals: Vital Signs Date Time Temp Pulse Resp B/P (MAP) Pulse Ox O2 Delivery O2 Flow Rate FiO2 07/06/19 13:49 104 20 122/84 (97) 98 Room Air 07/06/19 09:33 97.3 97.3 Labs: Labs: Laboratory Tests Test 07/06/19 10:20 07/06/19 13:20 07/06/19 13:25 07/06/19 15:13 White Blood Count 12.3 x10^3/uL (4.0-11.0) Red Blood Count 4.34 x10^6/uL (3.50-5.40) Hemoglobin 12.3 g/dL (12.0-15.5) Hematocrit 37.1 % (36.0-47.0) Mean Corpuscular Volume 86 fL (79-100) Mean Corpuscular Hemoglobin 28 pg (25-35) Mean Corpuscular Hemoglobin Concent 33 g/dL (31-37) Red Cell Distribution Width 14.7 % (11.5-14.5) Platelet Count 305 x10^3/uL (140-400) Neutrophils (%) (Auto) 90 % (31-73) Lymphocytes (%) (Auto) 7 % (24-48) Monocytes (%) (Auto) 3 % (0-9) Eosinophils (%) (Auto) 0 % (0-3) Basophils (%) (Auto) 1 % (0-3) Neutrophils # (Auto) 11.0 x10^3/uL (1.8-7.7) Lymphocytes # (Auto) 0.8 x10^3/uL (1.0-4.8) Monocytes # (Auto) 0.4 x10^3/uL (0.0-1.1) Eosinophils # (Auto) 0.0 x10^3/uL (0.0-0.7) Basophils # (Auto) 0.1 x10^3/uL (0.0-0.2) Segmented Neutrophils % 94 % (35-66) Lymphocytes % 6 % (24-48) Platelet Estimate Adequate (ADEQUATE) Sodium Level 139 mmol/L (136-145) Potassium Level 3.5 mmol/L (3.5-5.1) Chloride Level 100 mmol/L (98-107) Carbon Dioxide Level 26 mmol/L (21-32) Anion Gap 13 (6-14) Blood Urea Nitrogen 6 mg/dL (7-20) Creatinine 0.8 mg/dL (0.6-1.0) Estimated GFR (Cockcroft-Gault) 102.6 BUN/Creatinine Ratio 8 (6-20) Glucose Level 323 mg/dL (70-99) Calcium Level 9.2 mg/dL (8.5-10.1) Total Bilirubin 0.3 mg/dL (0.2-1.0) Aspartate Amino Transf (AST/SGOT) 26 U/L (15-37) Alanine Aminotransferase (ALT/SGPT) 26 U/L (14-59) Alkaline Phosphatase 76 U/L (46-116) Total Protein 7.8 g/dL (6.4-8.2) Albumin 3.7 g/dL (3.4-5.0) Albumin/Globulin Ratio 0.9 (1.0-1.7) Lipase 63 U/L (73-393) Ethyl Alcohol Level < 10 mg/dL (0-10) Urine Collection Type Unknown Urine Color Yellow Urine Clarity Clear Urine pH 5.5 Urine Specific [place] >=1.030 Urine Protein Negative mg/dL (NEG-TRACE) Urine Glucose (UA) >=1000 mg/dL (NEG) Urine Ketones (Stick) 40 mg/dL (NEG) Urine Blood Negative (NEG) Urine Nitrite Negative (NEG) Urine Bilirubin Negative (NEG) Urine Urobilinogen Dipstick 0.2 mg/dL (0.2 mg/dL) Urine Leukocyte Esterase Trace (NEG) Urine RBC Rare /HPF (0-2) Urine WBC 5-10 /HPF (0-4) Urine Squamous Epithelial Cells Many /LPF Urine Bacteria Mod /HPF (0-FEW) Urine Mucus Slight /LPF Urine Trichomonas Present Urine Opiates Screen Neg (NEG) Urine Methadone Screen Neg (NEG) Urine Barbiturates Neg (NEG) Urine Phencyclidine Screen Neg (NEG) Urine Amphetamine/Methamphetamine Neg (NEG) Urine Benzodiazepines Screen Neg (NEG) Urine Cocaine Screen Neg (NEG) Urine Cannabinoids Screen Pos (NEG) Urine Ethyl Alcohol Neg (NEG) Bedside Urine HCG, Qualitative Hcg negative (Negative) Glucose (Fingerstick) 311 mg/dL (70-99) Allergies: Coded Allergies: No Known Drug Allergies (Unverified , 01/23/16) Medications: Current Medications Medications (Trade) Dose Ordered Sig/Brianna Route PRN Reason Start Time Stop Time Status Last Admin Dose Admin Sodium Chloride 1,000 ml @ 1,000 mls/hr 1X ONCE IV 07/06/19 10:15 07/06/19 11:14 DC 07/06/19 10:14 Famotidine (Pepcid Vial) 20 mg 1X ONCE IVP 07/06/19 10:15 07/06/19 10:16 DC 07/06/19 10:17 Ondansetron HCl (Zofran) 4 mg 1X ONCE IV 07/06/19 10:15 07/06/19 10:16 DC 07/06/19 10:15 Haloperidol Lactate (Haldol Inj) 5 mg 1X ONCE IVP 07/06/19 11:15 07/06/19 11:16 DC 07/06/19 11:36 Prochlorperazine Edisylate (Compazine) 10 mg 1X ONCE IV 07/06/19 11:15 07/06/19 11:16 DC 07/06/19 11:33 Insulin Human Regular (HumuLIN R VIAL) 5 unit 1X ONCE IV 07/06/19 11:30 07/06/19 11:31 DC 07/06/19 11:42 Sodium Chloride 1,000 ml @ 125 mls/hr 1X ONCE IV 07/06/19 11:30 07/06/19 19:29 07/06/19 11:39 Metoclopramide HCl (Reglan Vial) 10 mg 1X ONCE IV 07/06/19 14:00 07/06/19 14:01 DC 07/06/19 13:47 Metronidazole 100 ml @ 100 mls/hr 1X ONCE IV 07/06/19 14:30 07/06/19 15:29 DC 07/06/19 15:45 Multivitamins 10 ml/Thiamine HCl 100 mg/Folic Acid 1 mg/Sodium Chloride 1,011.2 ml @ 125 mls/ hr 1X ONCE IV 07/06/19 14:30 07/06/19 22:35 07/06/19 15:25 Imaging: Imaging: - PE: GEN: uncomfortable - curled up in a ball HEENT: Atraumatic, PERRL LUNGS: CTAB HEART: mildly tachycardic ABD: quiet, non-distended, periumbilical tenderness EXTREMITY: No edema SKIN: No rashes, no jaundice NEURO/PSYCH: A & O 3, drowsy A/P: A/P: Uncontrolled DM Chronic n/v and abd pain +marijuana Trichomonas CRC screen - average risk FH GB disease -- Continue per Dr. Basurto for diabetic control. Suspect n/v and abd pain related to diabetic gastroparesis. Normal Hgb and BUN. Add PPI - IV for now. No imaging here - check abd x-ray and GB US to start. Consider GES later when tolerating PO. TY JULIAN Jul 06, 2019 16:25
[2019-07-06] MEDS ORDERED: DEXTROSE 50% 25 GM / 50ML DISP.SYRIN. IV PRN (16:45)
[2019-07-06] MEDS: IV NORMAL SALINE 1000ML BAG 1,000 ML IV SCH (16:49)
[2019-07-06] MEDS: ENOXAPARIN 40 MG/0.4 ML SYRINGE. SQ SCH (16:52)
[2019-07-06] MEDS: INSULIN LISPRO 300 UNITS/3 ML VIAL. SQ SCH (17:00)
[2019-07-06] MEDS: PANTOPRAZOLE IV PUSH 40 MG VIAL. IVP SCH (17:05)
[2019-07-06] MEDS ORDERED: INSULIN LISPRO 300 UNITS/3 ML VIAL. SQ ONE (17:30)
[2019-07-06] MEDS: fentaNYL PF VIAL 100 MCG/2 ML VIAL IV PRN ×2 (18:40→23:36)
[2019-07-06] MEDS: PROCHLORPERAZINE 10 MG/2 ML VIAL. IV PRN (18:41)
[2019-07-06 19:00] VITALS: BP 105/55
--- NOTE | 2019-07-06 19:27 | RAD ---
Indication: Nausea vomiting abdominal pain TECHNIQUE: Acute abdomen series COMPARISON: None FINDINGS: Heart is normal in size. Lungs are clear. No pneumothorax or pleural effusion. Visualized bony thorax within normal limits. No subdiaphragmatic lucency to suggest large pneumoperitoneum. No abnormally dilated bowel loops or air-fluid levels. No apparent calcific densities projecting over the locations of the kidneys to suggest renal stones. Visualized bones are within normal limits. IMPRESSION: No radiographic evidence of high-grade bowel obstruction. Electronically signed by: Tom Perez DO (07/06/2019 7:24 PM) [facility]
[2019-07-06] MEDS: INSULIN NPH/REG INSULIN 70/30 300 UNITS/3 ML INSULN.PEN. SQ SCH (21:07)
[2019-07-06 23:00] VITALS: BP 120/83
[2019-07-07] MEDS: IV NORMAL SALINE 1000ML BAG 1,000 ML IV SCH ×4 (00:25→21:33)
[2019-07-07 02:44] VITALS: BP 116/64
--- NOTE | 2019-07-07 03:56 | RAD ---
Examination: Ultrasound abdomen limited HISTORY: History of abdominal pain COMPARISON: None available FINDINGS: The visualized pancreas grossly appears unremarkable. Echogenicity of liver grossly appears unremarkable. The common bile duct measures 2.8 mm in diameter. The liver measures 15.8 cm. The gallbladder wall thickness measures 2.5 mm. The gallbladder appears contracted. Right kidney measures 11.2 cm in length. IMPRESSION: Contracted appearing gallbladder otherwise unremarkable exam. Electronically signed by: John Mina MD (07/07/2019 3:54 AM) [facility]
[2019-07-07] MEDS: PROCHLORPERAZINE 10 MG/2 ML VIAL. IV PRN (04:31)
--- NOTE | 2019-07-07 05:20 | NUR ---
NURSING NOTE Frequent blood sugar checks throughout the night per mother/patient request. Explained to mother frequency of glucose checks already ordered but she would prefer to keep a closer eye on pt's glucose levels. Monitoring. Will pass along to day RN.
[2019-07-07 07:00] VITALS: BP 118/69
--- NOTE | 2019-07-07 07:37 | PDOC ---
PROGRESS NOTES History of Present Illness History of Present Illness Assessment/Plan Assessment/Plan IMPRESSION 1. INTRACTABLE NAUSEA, VOMITING 2. THC ABUSE 3. DEHYDRATION 4. DIABETES .///poorly controlled gastroparesis. Medical therapy for symptom control. US assess for GB disease PLAN ADMIT IV FLUID SUPPORT ACCUCHECKS SS INSULIN DVT PROPHYLAXIS GI CONSULT 28 MIN PT EXAM, CHART REVIEW, > 50% OF TIME SPENT WITH EXAM, CHART REVIEW, PT CARE COORDINATION Try clears, ADAT. Vitals Vitals Vital Signs Date Time Temp Pulse Resp B/P (MAP) Pulse Ox O2 Delivery O2 Flow Rate FiO2 07/07/19 02:44 97.8 93 16 116/64 (81) 100 Room Air 97.8 Physical Exam General: Alert, Oriented X3, Cooperative, mild distress Heart: Regular rate Abdomen: Normal bowel sounds, Soft Extremities: No cyanosis, No edema Labs LABS Examination: Ultrasound abdomen limited HISTORY: History of abdominal pain COMPARISON: None available FINDINGS: The visualized pancreas grossly appears unremarkable. Echogenicity of liver grossly appears unremarkable. The common bile duct measures 2.8 mm in diameter. The liver measures 15.8 cm. The gallbladder wall thickness measures 2.5 mm. The gallbladder appears contracted. Right kidney measures 11.2 cm in length. IMPRESSION: Contracted appearing gallbladder otherwise unremarkable exam. Electronically signed by: John Mina MD (07/07/2019 3:54 AM) [facility] DICTATED and SIGNED BY: JOHN MINA MD DATE: 07/07/19 0354 Laboratory Tests Test 07/06/19 10:20 07/06/19 13:20 07/06/19 13:25 07/06/19 15:13 White Blood Count 12.3 x10^3/uL (4.0-11.0) Red Blood Count 4.34 x10^6/uL (3.50-5.40) Hemoglobin 12.3 g/dL (12.0-15.5) Hematocrit 37.1 % (36.0-47.0) Mean Corpuscular Volume 86 fL (79-100) Mean Corpuscular Hemoglobin 28 pg (25-35) Mean Corpuscular Hemoglobin Concent 33 g/dL (31-37) Red Cell Distribution Width 14.7 % (11.5-14.5) Platelet Count 305 x10^3/uL (140-400) Neutrophils (%) (Auto) 90 % (31-73) Lymphocytes (%) (Auto) 7 % (24-48) Monocytes (%) (Auto) 3 % (0-9) Eosinophils (%) (Auto) 0 % (0-3) Basophils (%) (Auto) 1 % (0-3) Neutrophils # (Auto) 11.0 x10^3/uL (1.8-7.7) Lymphocytes # (Auto) 0.8 x10^3/uL (1.0-4.8) Monocytes # (Auto) 0.4 x10^3/uL (0.0-1.1) Eosinophils # (Auto) 0.0 x10^3/uL (0.0-0.7) Basophils # (Auto) 0.1 x10^3/uL (0.0-0.2) Segmented Neutrophils % 94 % (35-66) Lymphocytes % 6 % (24-48) Platelet Estimate Adequate (ADEQUATE) Sodium Level 139 mmol/L (136-145) Potassium Level 3.5 mmol/L (3.5-5.1) Chloride Level 100 mmol/L (98-107) Carbon Dioxide Level 26 mmol/L (21-32) Anion Gap 13 (6-14) Blood Urea Nitrogen 6 mg/dL (7-20) Creatinine 0.8 mg/dL (0.6-1.0) Estimated GFR (Cockcroft-Gault) 102.6 BUN/Creatinine Ratio 8 (6-20) Glucose Level 323 mg/dL (70-99) Calcium Level 9.2 mg/dL (8.5-10.1) Total Bilirubin 0.3 mg/dL (0.2-1.0) Aspartate Amino Transf (AST/SGOT) 26 U/L (15-37) Alanine Aminotransferase (ALT/SGPT) 26 U/L (14-59) Alkaline Phosphatase 76 U/L (46-116) Total Protein 7.8 g/dL (6.4-8.2) Albumin 3.7 g/dL (3.4-5.0) Albumin/Globulin Ratio 0.9 (1.0-1.7) Lipase 63 U/L (73-393) Ethyl Alcohol Level < 10 mg/dL (0-10) Urine Collection Type Unknown Urine Color Yellow Urine Clarity Clear Urine pH 5.5 Urine Specific [place] >=1.030 Urine Protein Negative mg/dL (NEG-TRACE) Urine Glucose (UA) >=1000 mg/dL (NEG) Urine Ketones (Stick) 40 mg/dL (NEG) Urine Blood Negative (NEG) Urine Nitrite Negative (NEG) Urine Bilirubin Negative (NEG) Urine Urobilinogen Dipstick 0.2 mg/dL (0.2 mg/dL) Urine Leukocyte Esterase Trace (NEG) Urine RBC Rare /HPF (0-2) Urine WBC 5-10 /HPF (0-4) Urine Squamous Epithelial Cells Many /LPF Urine Bacteria Mod /HPF (0-FEW) Urine Mucus Slight /LPF Urine Trichomonas Present Urine Opiates Screen Neg (NEG) Urine Methadone Screen Neg (NEG) Urine Barbiturates Neg (NEG) Urine Phencyclidine Screen Neg (NEG) Urine Amphetamine/Methamphetamine Neg (NEG) Urine Benzodiazepines Screen Neg (NEG) Urine Cocaine Screen Neg (NEG) Urine Cannabinoids Screen Pos (NEG) Urine Ethyl Alcohol Neg (NEG) Bedside Urine HCG, Qualitative Hcg negative (Negative) Glucose (Fingerstick) 311 mg/dL (70-99) Test 07/06/19 17:15 07/06/19 20:56 07/06/19 23:48 07/07/19 05:43 Glucose (Fingerstick) 379 mg/dL (70-99) 214 mg/dL (70-99) 218 mg/dL (70-99) 227 mg/dL (70-99) Assessment and Plan Assessmemt and Plan Problems Medical Problems: (1) Hyperglycemia Status: Acute (2) Nausea and vomiting Status: Acute (3) Trichomonas vaginitis Status: Acute Comment Review of Relevant I have reviewed the following items yoanna (where applicable) has been applied. Labs Laboratory Tests Test 07/06/19 10:20 07/06/19 13:20 07/06/19 13:25 07/06/19 15:13 White Blood Count 12.3 x10^3/uL (4.0-11.0) Red Blood Count 4.34 x10^6/uL (3.50-5.40) Hemoglobin 12.3 g/dL (12.0-15.5) Hematocrit 37.1 % (36.0-47.0) Mean Corpuscular Volume 86 fL (79-100) Mean Corpuscular Hemoglobin 28 pg (25-35) Mean Corpuscular Hemoglobin Concent 33 g/dL (31-37) Red Cell Distribution Width 14.7 % (11.5-14.5) Platelet Count 305 x10^3/uL (140-400) Neutrophils (%) (Auto) 90 % (31-73) Lymphocytes (%) (Auto) 7 % (24-48) Monocytes (%) (Auto) 3 % (0-9) Eosinophils (%) (Auto) 0 % (0-3) Basophils (%) (Auto) 1 % (0-3) Neutrophils # (Auto) 11.0 x10^3/uL (1.8-7.7) Lymphocytes # (Auto) 0.8 x10^3/uL (1.0-4.8) Monocytes # (Auto) 0.4 x10^3/uL (0.0-1.1) Eosinophils # (Auto) 0.0 x10^3/uL (0.0-0.7) Basophils # (Auto) 0.1 x10^3/uL (0.0-0.2) Segmented Neutrophils % 94 % (35-66) Lymphocytes % 6 % (24-48) Platelet Estimate Adequate (ADEQUATE) Sodium Level 139 mmol/L (136-145) Potassium Level 3.5 mmol/L (3.5-5.1) Chloride Level 100 mmol/L (98-107) Carbon Dioxide Level 26 mmol/L (21-32) Anion Gap 13 (6-14) Blood Urea Nitrogen 6 mg/dL (7-20) Creatinine 0.8 mg/dL (0.6-1.0) Estimated GFR (Cockcroft-Gault) 102.6 BUN/Creatinine Ratio 8 (6-20) Glucose Level 323 mg/dL (70-99) Calcium Level 9.2 mg/dL (8.5-10.1) Total Bilirubin 0.3 mg/dL (0.2-1.0) Aspartate Amino Transf (AST/SGOT) 26 U/L (15-37) Alanine Aminotransferase (ALT/SGPT) 26 U/L (14-59) Alkaline Phosphatase 76 U/L (46-116) Total Protein 7.8 g/dL (6.4-8.2) Albumin 3.7 g/dL (3.4-5.0) Albumin/Globulin Ratio 0.9 (1.0-1.7) Lipase 63 U/L (73-393) Ethyl Alcohol Level < 10 mg/dL (0-10) Urine Collection Type Unknown Urine Color Yellow Urine Clarity Clear Urine pH 5.5 Urine Specific [place] >=1.030 Urine Protein Negative mg/dL (NEG-TRACE) Urine Glucose (UA) >=1000 mg/dL (NEG) Urine Ketones (Stick) 40 mg/dL (NEG) Urine Blood Negative (NEG) Urine Nitrite Negative (NEG) Urine Bilirubin Negative (NEG) Urine Urobilinogen Dipstick 0.2 mg/dL (0.2 mg/dL) Urine Leukocyte Esterase Trace (NEG) Urine RBC Rare /HPF (0-2) Urine WBC 5-10 /HPF (0-4) Urine Squamous Epithelial Cells Many /LPF Urine Bacteria Mod /HPF (0-FEW) Urine Mucus Slight /LPF Urine Trichomonas Present Urine Opiates Screen Neg (NEG) Urine Methadone Screen Neg (NEG) Urine Barbiturates Neg (NEG) Urine Phencyclidine Screen Neg (NEG) Urine Amphetamine/Methamphetamine Neg (NEG) Urine Benzodiazepines Screen Neg (NEG) Urine Cocaine Screen Neg (NEG) Urine Cannabinoids Screen Pos (NEG) Urine Ethyl Alcohol Neg (NEG) Bedside Urine HCG, Qualitative Hcg negative (Negative) Glucose (Fingerstick) 311 mg/dL (70-99) Test 07/06/19 17:15 07/06/19 20:56 07/06/19 23:48 07/07/19 05:43 Glucose (Fingerstick) 379 mg/dL (70-99) 214 mg/dL (70-99) 218 mg/dL (70-99) 227 mg/dL (70-99) Laboratory Tests Test 07/06/19 10:20 07/06/19 13:20 07/06/19 13:25 07/06/19 15:13 White Blood Count 12.3 x10^3/uL (4.0-11.0) Red Blood Count 4.34 x10^6/uL (3.50-5.40) Hemoglobin 12.3 g/dL (12.0-15.5) Hematocrit 37.1 % (36.0-47.0) Mean Corpuscular Volume 86 fL (79-100) Mean Corpuscular Hemoglobin 28 pg (25-35) Mean Corpuscular Hemoglobin Concent 33 g/dL (31-37) Red Cell Distribution Width 14.7 % (11.5-14.5) Platelet Count 305 x10^3/uL (140-400) Neutrophils (%) (Auto) 90 % (31-73) Lymphocytes (%) (Auto) 7 % (24-48) Monocytes (%) (Auto) 3 % (0-9) Eosinophils (%) (Auto) 0 % (0-3) Basophils (%) (Auto) 1 % (0-3) Neutrophils # (Auto) 11.0 x10^3/uL (1.8-7.7) Lymphocytes # (Auto) 0.8 x10^3/uL (1.0-4.8) Monocytes # (Auto) 0.4 x10^3/uL (0.0-1.1) Eosinophils # (Auto) 0.0 x10^3/uL (0.0-0.7) Basophils # (Auto) 0.1 x10^3/uL (0.0-0.2) Segmented Neutrophils % 94 % (35-66) Lymphocytes % 6 % (24-48) Platelet Estimate Adequate (ADEQUATE) Sodium Level 139 mmol/L (136-145) Potassium Level 3.5 mmol/L (3.5-5.1) Chloride Level 100 mmol/L (98-107) Carbon Dioxide Level 26 mmol/L (21-32) Anion Gap 13 (6-14) Blood Urea Nitrogen 6 mg/dL (7-20) Creatinine 0.8 mg/dL (0.6-1.0) Estimated GFR (Cockcroft-Gault) 102.6 BUN/Creatinine Ratio 8 (6-20) Glucose Level 323 mg/dL (70-99) Calcium Level 9.2 mg/dL (8.5-10.1) Total Bilirubin 0.3 mg/dL (0.2-1.0) Aspartate Amino Transf (AST/SGOT) 26 U/L (15-37) Alanine Aminotransferase (ALT/SGPT) 26 U/L (14-59) Alkaline Phosphatase 76 U/L (46-116) Total Protein 7.8 g/dL (6.4-8.2) Albumin 3.7 g/dL (3.4-5.0) Albumin/Globulin Ratio 0.9 (1.0-1.7) Lipase 63 U/L (73-393) Ethyl Alcohol Level < 10 mg/dL (0-10) Urine Collection Type Unknown Urine Color Yellow Urine Clarity Clear Urine pH 5.5 Urine Specific [place] >=1.030 Urine Protein Negative mg/dL (NEG-TRACE) Urine Glucose (UA) >=1000 mg/dL (NEG) Urine Ketones (Stick) 40 mg/dL (NEG) Urine Blood Negative (NEG) Urine Nitrite Negative (NEG) Urine Bilirubin Negative (NEG) Urine Urobilinogen Dipstick 0.2 mg/dL (0.2 mg/dL) Urine Leukocyte Esterase Trace (NEG) Urine RBC Rare /HPF (0-2) Urine WBC 5-10 /HPF (0-4) Urine Squamous Epithelial Cells Many /LPF Urine Bacteria Mod /HPF (0-FEW) Urine Mucus Slight /LPF Urine Trichomonas Present Urine Opiates Screen Neg (NEG) Urine Methadone Screen Neg (NEG) Urine Barbiturates Neg (NEG) Urine Phencyclidine Screen Neg (NEG) Urine Amphetamine/Methamphetamine Neg (NEG) Urine Benzodiazepines Screen Neg (NEG) Urine Cocaine Screen Neg (NEG) Urine Cannabinoids Screen Pos (NEG) Urine Ethyl Alcohol Neg (NEG) Bedside Urine HCG, Qualitative Hcg negative (Negative) Glucose (Fingerstick) 311 mg/dL (70-99) Test 07/06/19 17:15 07/06/19 20:56 07/06/19 23:48 07/07/19 05:43 Glucose (Fingerstick) 379 mg/dL (70-99) 214 mg/dL (70-99) 218 mg/dL (70-99) 227 mg/dL (70-99) Medications Current Medications Sodium Chloride 1,000 ml @ 1,000 mls/hr 1X ONCE IV Last administered on 07/06/19at 10:14; Start 07/06/19 at 10:15; Stop 07/06/19 at 11:14; Status DC Famotidine (Pepcid Vial) 20 mg 1X ONCE IVP Last administered on 07/06/19at 10:17; Start 07/06/19 at 10:15; Stop 07/06/19 at 10:16; Status DC Ondansetron HCl (Zofran) 4 mg 1X ONCE IV Last administered on 07/06/19at 10:15; Start 07/06/19 at 10:15; Stop 07/06/19 at 10:16; Status DC Haloperidol Lactate (Haldol Inj) 5 mg 1X ONCE IVP Last administered on 07/06/19at 11:36; Start 07/06/19 at 11:15; Stop 07/06/19 at 11:16; Status DC Prochlorperazine Edisylate (Compazine) 10 mg 1X ONCE IV Last administered on 07/06/19at 11:33; Start 07/06/19 at 11:15; Stop 07/06/19 at 11:16; Status DC Insulin Human Regular (HumuLIN R VIAL) 5 unit 1X ONCE IV Last administered on 07/06/19at 11:42; Start 07/06/19 at 11:30; Stop 07/06/19 at 11:31; Status DC Sodium Chloride 1,000 ml @ 125 mls/hr 1X ONCE IV Last administered on 07/06/19at 11:39; Start 07/06/19 at 11:30; Stop 07/06/19 at 19:29; Status DC Metoclopramide HCl (Reglan Vial) 10 mg 1X ONCE IV Last administered on 07/06/19at 13:47; Start 07/06/19 at 14:00; Stop 07/06/19 at 14:01; Status DC Azithromycin (Zithromax) 1,000 mg 1X ONCE PO ; Start 07/06/19 at 14:15; Stop 07/06/19 at 14:16; Status Cancel Metronidazole (Flagyl) 2,000 mg 1X ONCE PO ; Start 07/06/19 at 14:15; Stop 07/06/19 at 14:16; Status Cancel Promethazine HCl (Phenergan Supp) 25 mg 1X ONCE MO ; Start 07/06/19 at 14:15; Stop 07/06/19 at 14:16; Status DC Metronidazole 100 ml @ 100 mls/hr 1X ONCE IV Last administered on 07/06/19at 15:45; Start 07/06/19 at 14:30; Stop 07/06/19 at 15:29; Status DC Azithromycin 250 ml @ 250 mls/hr 1X ONCE IV Last administered on 07/06/19at 17:25; Start 07/06/19 at 14:30; Stop 07/06/19 at 15:29; Status DC Ondansetron HCl (Zofran) 4 mg PRN Q8HRS PRN IV NAUSEA/VOMITING; Start 07/06/19 at 14:30; Stop 07/07/19 at 14:29; Status UNV Fentanyl Citrate (Fentanyl 2ml Vial) 50 mcg PRN Q1HR PRN IV PAIN Last administered on 07/06/19at 23:36; Start 07/06/19 at 14:30; Stop 07/07/19 at 14:29 Prochlorperazine Edisylate (Compazine) 10 mg PRN TID PRN IV NAUSEA, 2nd CHOICE; Start 07/06/19 at 14:30; Stop 07/06/19 at 16:41; Status DC Sodium Chloride 1,000 ml @ 75 mls/hr 1X IV ; Start 07/06/19 at 14:30 Sodium Chloride (Normal Saline Flush) 3 ml QSHIFT PRN IV AFTER MEDS AND BLOOD DRAWS; Start 07/06/19 at 14:30 Sodium Chloride 1,000 ml @ 100 mls/hr Q10H IV Last administered on 07/06/19at 16:49; Start 07/06/19 at 14:25 Multivitamins 10 ml/Thiamine HCl 100 mg/Folic Acid 1 mg/Sodium Chloride 1,011.2 ml @ 125 mls/ hr 1X ONCE IV Last administered on 07/06/19at 15:25; Start 07/06/19 at 14:30; Stop 07/06/19 at 22:35; Status DC Ondansetron HCl (Zofran) 4 mg PRN Q4HRS PRN IV NAUSEA/VOMITING, 1st CHOICE; Start 07/06/19 at 14:30 Acetaminophen (Tylenol) 650 mg PRN Q4HRS PRN PO TEMP OVER 100.4F OR MILD PAIN; Start 07/06/19 at 14:30 Clonidine HCl (Catapres) 0.1 mg PRN Q6HRS PRN PO SBP>160 OR DBP>90; Start 07/06/19 at 14:30 Docusate Sodium (Colace) 100 mg PRN BID PRN PO CONSTIPATION; Start 07/06/19 at 14:30 Albuterol Sulfate (Ventolin Neb Soln) 2.5 mg PRN Q4HRS PRN NEB SHORTNESS OF BREATH; Start 07/06/19 at 14:30 Guaifenesin (Robitussin) 200 mg PRN Q4HRS PRN PO COUGH; Start 07/06/19 at 14:30 Lorazepam (Ativan) 0.5 mg PRN Q4HRS PRN PO ANXIETY / AGITATION; Start 07/06/19 at 14:30 Enoxaparin Sodium (Lovenox 40mg Syringe) 40 mg Q24H SQ ; Start 07/06/19 at 15:00 Pantoprazole Sodium (PROTONIX VIAL for IV PUSH) 40 mg DAILYAC IVP Last administered on 07/06/19at 17:05; Start 07/06/19 at 16:30 Prochlorperazine Edisylate (Compazine) 10 mg PRN Q4HRS PRN IV NAUSEA/VOMITING, 2ND CHOICE Last administered on 07/07/19at 04:31; Start 07/06/19 at 16:45 Insulin Human Lispro (HumaLOG) 0-5 UNITS TIDWMEALS SQ ; Start 07/06/19 at 17:00 Dextrose (Dextrose 50%-Water Syringe) 12.5 gm PRN Q15MIN PRN IV SEE COMMENTS; Start 07/06/19 at 16:45 Insulin Human Isoph/Insulin Regular (HumuLIN 70/30) 10 units BID SQ Last administered on 07/06/19at 21:07; Start 07/06/19 at 21:00 Insulin Human Lispro (HumaLOG) 5 units 1X ONCE SQ Last administered on 07/06/19at 17:32; Start 07/06/19 at 17:30; Stop 07/06/19 at 17:31; Status DC Active Scripts Active Reported Humulin N (Nph, Human Insulin Isophane) 100 Unit/1 Ml Vial 10 Unit SQ BID Vitals/I & O Vital Sign - Last 24 Hours 07/06/19 07/06/19 07/06/19 07/06/19 09:33 11:44 13:23 13:49 Temp 97.3 97.3 Pulse 90 90 102 104 Resp 20 20 20 20 B/P (MAP) 129/90 (103) 131/83 (99) 118/81 (93) 122/84 (97) Pulse Ox 99 96 99 98 O2 Delivery Room Air Room Air Room Air Room Air 07/06/19 07/06/19 07/06/19 07/06/19 18:00 18:40 19:00 19:10 Temp 99.0 99.0 Pulse 99 Resp 20 16 20 B/P (MAP) 105/55 (72) Pulse Ox 98 100 98 O2 Delivery Room Air Room Air Room Air Room Air 07/06/19 07/06/19 07/06/19 07/06/19 20:00 20:23 23:00 23:36 Temp 99.1 99.1 Pulse 96 Resp 16 B/P (MAP) 120/83 (95) Pulse Ox 100 96 O2 Delivery Room Air Room Air Room Air Room Air 07/07/19 07/07/19 00:17 02:44 Temp 97.8 97.8 Pulse 93 Resp 16 B/P (MAP) 116/64 (81) Pulse Ox 100 O2 Delivery Room Air Room Air Intake and Output 07/06/19 07/06/19 07/07/19 15:00 23:00 07:00 Intake Total 1000 ml 350 ml Balance 1000 ml 350 ml SHELLEY WATERS MD Jul 07, 2019 07:37
[2019-07-07] MEDS: PANTOPRAZOLE IV PUSH 40 MG VIAL. IVP SCH (07:39)
[2019-07-07] MEDS: INSULIN NPH/REG INSULIN 70/30 300 UNITS/3 ML INSULN.PEN. SQ SCH ×2 (08:32→21:39)
[2019-07-07] MEDS: INSULIN LISPRO 300 UNITS/3 ML VIAL. SQ SCH ×3 (08:33→17:00)
[2019-07-07 09:14] LABS: CALCIUM 8.3 mg/dL (8.5-10.1); CREATININE 0.7 mg/dL (0.6-1.0); GFR 119.7; POTASSIUM 3.8 mmol/L (3.5-5.1)
[2019-07-07 09:16] LABS: BASO # 0.1 x10^3/uL (0.0-0.2); BASO % 1 % (0-3); EOS % 0 % (0-3); HEMATOCRIT 33.2 % (36.0-47.0); LYMPH # 2.1 x10^3/uL (1.0-4.8); LYMPH % 15 % (24-48); MEAN CORPUSCULAR HEMOGLOBIN 29 pg (25-35); MEAN CORPUSCULAR HGB CONC 33 g/dL (31-37); MEAN CORPUSCULAR VOLUME 86 fL (79-100); MONO # 0.8 x10^3/uL (0.0-1.1); MONO % 6 % (0-9); NEUT # 10.8 x10^3/uL (1.8-7.7); NEUT % 78 % (31-73); PLATELET COUNT 292 x10^3/uL (140-400); RED BLOOD COUNT 3.87 x10^6/uL (3.50-5.40); RED CELL DISTRIBUTION WIDTH 15.2 % (11.5-14.5); WHITE BLOOD COUNT 13.8 x10^3/uL (4.0-11.0)
--- NOTE | 2019-07-07 09:33 | PDOC ---
Subjective: Subjective: Better today, denies vomiting, might have less abd pain, no stools. Would like something to drink. Objective: Vital Signs: Vital Signs Date Time Temp Pulse Resp B/P (MAP) Pulse Ox O2 Delivery O2 Flow Rate FiO2 07/07/19 07:00 99.4 94 17 118/69 (85) 95 Room Air 99.4 Labs: Laboratory Tests Test 07/06/19 15:13 07/06/19 17:15 07/06/19 20:56 07/06/19 23:48 Glucose (Fingerstick) 311 mg/dL (70-99) 379 mg/dL (70-99) 214 mg/dL (70-99) 218 mg/dL (70-99) Test 07/07/19 05:43 07/07/19 07:08 Glucose (Fingerstick) 227 mg/dL (70-99) 255 mg/dL (70-99) Imaging: Abd US IMPRESSION: Contracted appearing gallbladder otherwise unremarkable exam. AAS IMPRESSION: No radiographic evidence of high-grade bowel obstruction. PE: GEN: NAD LUNGS: CTAB HEART: RRR ABD: S/ND/NT NEURO/PSYCH: drowsy A/P: Uncontrolled DM Chronic n/v and abd pain - suspect gastroparesis -- Try clears, ADAT. Change to PO PPI when reliably eating. DC per primary, can follow-up w/ GI as outpt. TY JULIAN Jul 07, 2019 09:33
[2019-07-07 11:00] VITALS: BP 117/76
--- NOTE | 2019-07-07 11:56 | NUR ---
received page at 1155 to go to pt's room as family wanted her "vitals checked to make sure she was not ". this rn was in another room hanging blood and not able to leave. pressed call light to inform staff of this and have someone check on pt. this rn was in pts room at 1135 and pt was sleeping, with visible rise and fall of chest, audible breath sounds.
[2019-07-07 15:00] VITALS: BP 113/79
[2019-07-07] MEDS: ENOXAPARIN 40 MG/0.4 ML SYRINGE. SQ SCH (15:00)
--- NOTE | 2019-07-07 15:55 | RAD ---
CT abdomen pelvis without contrast dated 07/07/2019. No comparison available. CLINICAL INDICATION: Abdominal pain. Possible abscess. TECHNIQUE: Contiguous axial imaging of the abdomen and pelvis performed without the administration of IV or oral contrast. One or more of the following individualized dose reduction techniques were utilized for this examination: 1. Automated exposure control 2. Adjustment of the mA and/or kV according to patient size 3. Use of iterative reconstruction technique. FINDINGS: Limited images of lung bases are clear. Heart size within normal limits. No pleural or pericardial effusion. Solid abdominal viscera not well evaluated in the absence of contrast material. No apparent attenuation abnormality of the liver or spleen. Pancreas, adrenal glands and kidneys are unremarkable. No hydronephrosis. No calcific renal stone. The gallbladder is not identified and may be collapsed or surgically absent. There is some focal fat near the falciform ligament. Unopacified GI tract normal in caliber and contour. No focal bowel wall thickening. No inflammatory stranding in the mesentery. The appendix is not clearly identified. No inflammatory changes in the right lower quadrant. No ascites or lymphadenopathy. Images the pelvis show nondistended urinary bladder. There is mild diffuse bladder wall thickening. No free fluid or pelvic lymphadenopathy. Uterus and adnexa are unremarkable. Bone windows show no acute findings. IMPRESSION: 1. No apparent acute abnormality. 2. The appendix is not clearly identified. No inflammatory changes in the right lower quadrant. Electronically signed by: Pierce Paula MD (07/07/2019 3:52 PM) [facility]
--- NOTE | 2019-07-07 16:00 | NUR ---
SW consulted for homeless, no insurance. Chart reviewed and discussed with RN. Spoke with pt and pt states she has been homeless 6 months. Pt states she has been living with family and friends. Pt does not work and states she has bipolar disorder but does not take meds. Pt is provided referral to [facility] to f/u for mental health services by PAT team but no acute psych symptoms at this time. SWer provided pt with community, housing and healthcare resource guide. Pt accepted resources. Pt states she will be going back to her family upon dc. Will be available as needed.
[2019-07-07 19:00] VITALS: BP 122/87
[2019-07-07] MEDS ORDERED: ZOLPIDEM 5 MG TABLET. PO PRN (19:00)
[2019-07-07] MEDS: metroNIDAZOLE 500 MG TABLET PO SCH (21:34)
[2019-07-07 23:00] VITALS: BP 122/88
[2019-07-08 00:07] LABS: HEMOGLOBIN A1C 10.4 % (4.8-5.6)
[2019-07-08 03:00] VITALS: BP 131/94
[2019-07-08 05:42] LABS: BASO # 0.1 x10^3/uL (0.0-0.2); BASO % 1 % (0-3); EOS # 0.1 x10^3/uL (0.0-0.7); EOS % 1 % (0-3); HEMATOCRIT 31.3 % (36.0-47.0); HEMOGLOBIN 10.5 g/dL (12.0-15.5); LYMPH # 3.5 x10^3/uL (1.0-4.8); LYMPH % 39 % (24-48); MEAN CORPUSCULAR HEMOGLOBIN 29 pg (25-35); MEAN CORPUSCULAR HGB CONC 34 g/dL (31-37); MEAN CORPUSCULAR VOLUME 85 fL (79-100); MONO # 0.6 x10^3/uL (0.0-1.1); MONO % 7 % (0-9); NEUT # 4.8 x10^3/uL (1.8-7.7); NEUT % 52 % (31-73); PLATELET COUNT 249 x10^3/uL (140-400); RED BLOOD COUNT 3.67 x10^6/uL (3.50-5.40); RED CELL DISTRIBUTION WIDTH 15.2 % (11.5-14.5); WHITE BLOOD COUNT 9.2 x10^3/uL (4.0-11.0)
[2019-07-08] MEDS: ONDANSETRON PF 4 MG/2 ML VIAL. IV PRN (06:03)
[2019-07-08 06:04] LABS: ALBUMIN 2.7 g/dL (3.4-5.0); ALBUMIN/GLOBULIN RATIO 0.8 (1.0-1.7); CREATININE 0.7 mg/dL (0.6-1.0); GFR 119.7; POTASSIUM 3.2 mmol/L (3.5-5.1); TOTAL BILIRUBIN 0.3 mg/dL (0.2-1.0); TOTAL PROTEIN 5.9 g/dL (6.4-8.2)
[2019-07-08 07:00] VITALS: BP 140/96
[2019-07-08] MEDS: PANTOPRAZOLE IV PUSH 40 MG VIAL. IVP SCH (07:30)
[2019-07-08] MEDS ORDERED: ONDANSETRON ODT 4 MG TAB.RAPDIS. PO PRN (07:30)
[2019-07-08] MEDS ORDERED: PROCHLORPERAZINE 25 MG SUPP.RECT. PR PRN (07:45)
[2019-07-08] MEDS ORDERED: PROMETHAZINE 25 MG SUPP.RECT. PR PRN (07:45)
[2019-07-08] MEDS: metroNIDAZOLE 500 MG TABLET PO SCH ×2 (07:55→21:00)
[2019-07-08] MEDS: INSULIN LISPRO 300 UNITS/3 ML VIAL. SQ SCH ×3 (08:00→17:00)
--- NOTE | 2019-07-08 08:59 | PDOC ---
PROGRESS NOTES History of Present Illness History of Present Illness Assessment/Plan Assessment/Plan IMPRESSION 1. INTRACTABLE NAUSEA, VOMITING on ct exam, Solid abdominal viscera not well evaluated in the absence of contrast material. No apparent attenuation abnormality of the liver or spleen. Pancreas, adrenal glands and kidneys are unremarkable. No hydronephrosis. No calcific renal stone. The gallbladder is not identified and may be collapsed or surgically absent. There is some focal fat near the falciform ligament.Unopacified GI tract normal in caliber and contour. No focal bowel wall thickening. No inflammatory stranding in the mesentery. The appendix is not clearly identified 2. THC ABUSE 3. DEHYDRATION 4. DIABETES .///poorly controlled gastroparesis. Medical therapy for symptom control. US assess for GB disease PLAN ADMIT IV FLUID SUPPORT ACCUCHECKS SS INSULIN DVT PROPHYLAXIS GI CONSULT 07/08 pt states she cannot keep anything down by mouth today, iv out, will restart banana bag, CIWA protocol, very anxious d/w faily in room 38 MIN PT EXAM, CHART REVIEW, > 50% OF TIME SPENT WITH EXAM, CHART REVIEW, PT CARE COORDINATION Try clears, ADAT. Vitals Vitals Vital Signs Date Time Temp Pulse Resp B/P (MAP) Pulse Ox O2 Delivery O2 Flow Rate FiO2 07/08/19 07:00 98.3 84 16 140/96 (111) 100 Room Air 98.3 Physical Exam General: Alert, Oriented X3, Cooperative, mild distress Heart: Regular rate, Normal S1 Lungs: Clear Abdomen: Normal bowel sounds, Soft, No hepatosplenomegaly Extremities: No cyanosis, No edema Skin: No significant lesion Labs LABS REASON: POSSIBLE ABSCESS PROCEDURE: CT ABDOMEN PELVIS WO CONTRAST CT abdomen pelvis without contrast dated 07/07/2019. No comparison available. CLINICAL INDICATION: Abdominal pain. Possible abscess. TECHNIQUE: Contiguous axial imaging of the abdomen and pelvis performed without the administration of IV or oral contrast. One or more of the following individualized dose reduction techniques were utilized for this examination: 1. Automated exposure control 2. Adjustment of the mA and/or kV according to patient size 3. Use of iterative reconstruction technique. FINDINGS: Limited images of lung bases are clear. Heart size within normal limits. No pleural or pericardial effusion. Solid abdominal viscera not well evaluated in the absence of contrast material. No apparent attenuation abnormality of the liver or spleen. Pancreas, adrenal glands and kidneys are unremarkable. No hydronephrosis. No calcific renal stone. The gallbladder is not identified and may be collapsed or surgically absent. There is some focal fat near the falciform ligament. Unopacified GI tract normal in caliber and contour. No focal bowel wall thickening. No inflammatory stranding in the mesentery. The appendix is not clearly identified. No inflammatory changes in the right lower quadrant. No ascites or lymphadenopathy. Images the pelvis show nondistended urinary bladder. There is mild diffuse bladder wall thickening. No free fluid or pelvic lymphadenopathy. Uterus and adnexa are unremarkable. Bone windows show no acute findings. IMPRESSION: 1. No apparent acute abnormality. 2. The appendix is not clearly identified. No inflammatory changes in the right lower quadrant. Electronically signed by: Loren Paula MD (07/07/2019 3:52 PM) [facility] DICTATED and SIGNED BY: LOREN PAULA MD DATE: 07/07/19 1552 Laboratory Tests Test 07/07/19 11:14 07/07/19 16:35 07/07/19 21:08 07/08/19 05:19 Glucose (Fingerstick) 171 mg/dL (70-99) 75 mg/dL (70-99) 296 mg/dL (70-99) White Blood Count 9.2 x10^3/uL (4.0-11.0) Red Blood Count 3.67 x10^6/uL (3.50-5.40) Hemoglobin 10.5 g/dL (12.0-15.5) Hematocrit 31.3 % (36.0-47.0) Mean Corpuscular Volume 85 fL (79-100) Mean Corpuscular Hemoglobin 29 pg (25-35) Mean Corpuscular Hemoglobin Concent 34 g/dL (31-37) Red Cell Distribution Width 15.2 % (11.5-14.5) Platelet Count 249 x10^3/uL (140-400) Neutrophils (%) (Auto) 52 % (31-73) Lymphocytes (%) (Auto) 39 % (24-48) Monocytes (%) (Auto) 7 % (0-9) Eosinophils (%) (Auto) 1 % (0-3) Basophils (%) (Auto) 1 % (0-3) Neutrophils # (Auto) 4.8 x10^3/uL (1.8-7.7) Lymphocytes # (Auto) 3.5 x10^3/uL (1.0-4.8) Monocytes # (Auto) 0.6 x10^3/uL (0.0-1.1) Eosinophils # (Auto) 0.1 x10^3/uL (0.0-0.7) Basophils # (Auto) 0.1 x10^3/uL (0.0-0.2) Sodium Level 139 mmol/L (136-145) Potassium Level 3.2 mmol/L (3.5-5.1) Chloride Level 105 mmol/L (98-107) Carbon Dioxide Level 27 mmol/L (21-32) Anion Gap 7 (6-14) Blood Urea Nitrogen 6 mg/dL (7-20) Creatinine 0.7 mg/dL (0.6-1.0) Estimated GFR (Cockcroft-Gault) 119.7 BUN/Creatinine Ratio 9 (6-20) Glucose Level 163 mg/dL (70-99) Calcium Level 8.0 mg/dL (8.5-10.1) Total Bilirubin 0.3 mg/dL (0.2-1.0) Aspartate Amino Transf (AST/SGOT) 36 U/L (15-37) Alanine Aminotransferase (ALT/SGPT) 29 U/L (14-59) Alkaline Phosphatase 59 U/L (46-116) Total Protein 5.9 g/dL (6.4-8.2) Albumin 2.7 g/dL (3.4-5.0) Albumin/Globulin Ratio 0.8 (1.0-1.7) Test 07/08/19 08:00 Glucose (Fingerstick) 215 mg/dL (70-99) Assessment and Plan Assessmemt and Plan Problems Medical Problems: (1) Hyperglycemia Status: Acute (2) Nausea and vomiting Status: Acute (3) Trichomonas vaginitis Status: Acute Comment Review of Relevant I have reviewed the following items yoanna (where applicable) has been applied. Labs Laboratory Tests Test 07/06/19 10:20 07/06/19 13:20 07/06/19 13:25 07/06/19 15:13 White Blood Count 12.3 x10^3/uL (4.0-11.0) Red Blood Count 4.34 x10^6/uL (3.50-5.40) Hemoglobin 12.3 g/dL (12.0-15.5) Hematocrit 37.1 % (36.0-47.0) Mean Corpuscular Volume 86 fL (79-100) Mean Corpuscular Hemoglobin 28 pg (25-35) Mean Corpuscular Hemoglobin Concent 33 g/dL (31-37) Red Cell Distribution Width 14.7 % (11.5-14.5) Platelet Count 305 x10^3/uL (140-400) Neutrophils (%) (Auto) 90 % (31-73) Lymphocytes (%) (Auto) 7 % (24-48) Monocytes (%) (Auto) 3 % (0-9) Eosinophils (%) (Auto) 0 % (0-3) Basophils (%) (Auto) 1 % (0-3) Neutrophils # (Auto) 11.0 x10^3/uL (1.8-7.7) Lymphocytes # (Auto) 0.8 x10^3/uL (1.0-4.8) Monocytes # (Auto) 0.4 x10^3/uL (0.0-1.1) Eosinophils # (Auto) 0.0 x10^3/uL (0.0-0.7) Basophils # (Auto) 0.1 x10^3/uL (0.0-0.2) Segmented Neutrophils % 94 % (35-66) Lymphocytes % 6 % (24-48) Platelet Estimate Adequate (ADEQUATE) Sodium Level 139 mmol/L (136-145) Potassium Level 3.5 mmol/L (3.5-5.1) Chloride Level 100 mmol/L (98-107) Carbon Dioxide Level 26 mmol/L (21-32) Anion Gap 13 (6-14) Blood Urea Nitrogen 6 mg/dL (7-20) Creatinine 0.8 mg/dL (0.6-1.0) Estimated GFR (Cockcroft-Gault) 102.6 BUN/Creatinine Ratio 8 (6-20) Glucose Level 323 mg/dL (70-99) Hemoglobin A1c 10.4 % (4.8-5.6) Calcium Level 9.2 mg/dL (8.5-10.1) Total Bilirubin 0.3 mg/dL (0.2-1.0) Aspartate Amino Transf (AST/SGOT) 26 U/L (15-37) Alanine Aminotransferase (ALT/SGPT) 26 U/L (14-59) Alkaline Phosphatase 76 U/L (46-116) Total Protein 7.8 g/dL (6.4-8.2) Albumin 3.7 g/dL (3.4-5.0) Albumin/Globulin Ratio 0.9 (1.0-1.7) Lipase 63 U/L (73-393) Ethyl Alcohol Level < 10 mg/dL (0-10) Urine Collection Type Unknown Urine Color Yellow Urine Clarity Clear Urine pH 5.5 Urine Specific Morley >=1.030 Urine Protein Negative mg/dL (NEG-TRACE) Urine Glucose (UA) >=1000 mg/dL (NEG) Urine Ketones (Stick) 40 mg/dL (NEG) Urine Blood Negative (NEG) Urine Nitrite Negative (NEG) Urine Bilirubin Negative (NEG) Urine Urobilinogen Dipstick 0.2 mg/dL (0.2 mg/dL) Urine Leukocyte Esterase Trace (NEG) Urine RBC Rare /HPF (0-2) Urine WBC 5-10 /HPF (0-4) Urine Squamous Epithelial Cells Many /LPF Urine Bacteria Mod /HPF (0-FEW) Urine Mucus Slight /LPF Urine Trichomonas Present Urine Opiates Screen Neg (NEG) Urine Methadone Screen Neg (NEG) Urine Barbiturates Neg (NEG) Urine Phencyclidine Screen Neg (NEG) Urine Amphetamine/Methamphetamine Neg (NEG) Urine Benzodiazepines Screen Neg (NEG) Urine Cocaine Screen Neg (NEG) Urine Cannabinoids Screen Pos (NEG) Urine Ethyl Alcohol Neg (NEG) Bedside Urine HCG, Qualitative Hcg negative (Negative) Glucose (Fingerstick) 311 mg/dL (70-99) Test 07/06/19 17:15 07/06/19 20:56 07/06/19 23:48 07/07/19 05:43 Glucose (Fingerstick) 379 mg/dL (70-99) 214 mg/dL (70-99) 218 mg/dL (70-99) 227 mg/dL (70-99) Test 07/07/19 07:08 07/07/19 08:35 07/07/19 11:14 07/07/19 16:35 Glucose (Fingerstick) 255 mg/dL (70-99) 171 mg/dL (70-99) 75 mg/dL (70-99) White Blood Count 13.8 x10^3/uL (4.0-11.0) Red Blood Count 3.87 x10^6/uL (3.50-5.40) Hemoglobin 11.0 g/dL (12.0-15.5) Hematocrit 33.2 % (36.0-47.0) Mean Corpuscular Volume 86 fL (79-100) Mean Corpuscular Hemoglobin 29 pg (25-35) Mean Corpuscular Hemoglobin Concent 33 g/dL (31-37) Red Cell Distribution Width 15.2 % (11.5-14.5) Platelet Count 292 x10^3/uL (140-400) Neutrophils (%) (Auto) 78 % (31-73) Lymphocytes (%) (Auto) 15 % (24-48) Monocytes (%) (Auto) 6 % (0-9) Eosinophils (%) (Auto) 0 % (0-3) Basophils (%) (Auto) 1 % (0-3) Neutrophils # (Auto) 10.8 x10^3/uL (1.8-7.7) Lymphocytes # (Auto) 2.1 x10^3/uL (1.0-4.8) Monocytes # (Auto) 0.8 x10^3/uL (0.0-1.1) Eosinophils # (Auto) 0.0 x10^3/uL (0.0-0.7) Basophils # (Auto) 0.1 x10^3/uL (0.0-0.2) Sodium Level 139 mmol/L (136-145) Potassium Level 3.8 mmol/L (3.5-5.1) Chloride Level 105 mmol/L (98-107) Carbon Dioxide Level 23 mmol/L (21-32) Anion Gap 11 (6-14) Blood Urea Nitrogen 7 mg/dL (7-20) Creatinine 0.7 mg/dL (0.6-1.0) Estimated GFR (Cockcroft-Gault) 119.7 Glucose Level 276 mg/dL (70-99) Calcium Level 8.3 mg/dL (8.5-10.1) Test 07/07/19 21:08 07/08/19 05:19 07/08/19 08:00 Glucose (Fingerstick) 296 mg/dL (70-99) 215 mg/dL (70-99) White Blood Count 9.2 x10^3/uL (4.0-11.0) Red Blood Count 3.67 x10^6/uL (3.50-5.40) Hemoglobin 10.5 g/dL (12.0-15.5) Hematocrit 31.3 % (36.0-47.0) Mean Corpuscular Volume 85 fL (79-100) Mean Corpuscular Hemoglobin 29 pg (25-35) Mean Corpuscular Hemoglobin Concent 34 g/dL (31-37) Red Cell Distribution Width 15.2 % (11.5-14.5) Platelet Count 249 x10^3/uL (140-400) Neutrophils (%) (Auto) 52 % (31-73) Lymphocytes (%) (Auto) 39 % (24-48) Monocytes (%) (Auto) 7 % (0-9) Eosinophils (%) (Auto) 1 % (0-3) Basophils (%) (Auto) 1 % (0-3) Neutrophils # (Auto) 4.8 x10^3/uL (1.8-7.7) Lymphocytes # (Auto) 3.5 x10^3/uL (1.0-4.8) Monocytes # (Auto) 0.6 x10^3/uL (0.0-1.1) Eosinophils # (Auto) 0.1 x10^3/uL (0.0-0.7) Basophils # (Auto) 0.1 x10^3/uL (0.0-0.2) Sodium Level 139 mmol/L (136-145) Potassium Level 3.2 mmol/L (3.5-5.1) Chloride Level 105 mmol/L (98-107) Carbon Dioxide Level 27 mmol/L (21-32) Anion Gap 7 (6-14) Blood Urea Nitrogen 6 mg/dL (7-20) Creatinine 0.7 mg/dL (0.6-1.0) Estimated GFR (Cockcroft-Gault) 119.7 BUN/Creatinine Ratio 9 (6-20) Glucose Level 163 mg/dL (70-99) Calcium Level 8.0 mg/dL (8.5-10.1) Total Bilirubin 0.3 mg/dL (0.2-1.0) Aspartate Amino Transf (AST/SGOT) 36 U/L (15-37) Alanine Aminotransferase (ALT/SGPT) 29 U/L (14-59) Alkaline Phosphatase 59 U/L (46-116) Total Protein 5.9 g/dL (6.4-8.2) Albumin 2.7 g/dL (3.4-5.0) Albumin/Globulin Ratio 0.8 (1.0-1.7) Laboratory Tests Test 07/07/19 11:14 07/07/19 16:35 07/07/19 21:08 07/08/19 05:19 Glucose (Fingerstick) 171 mg/dL (70-99) 75 mg/dL (70-99) 296 mg/dL (70-99) White Blood Count 9.2 x10^3/uL (4.0-11.0) Red Blood Count 3.67 x10^6/uL (3.50-5.40) Hemoglobin 10.5 g/dL (12.0-15.5) Hematocrit 31.3 % (36.0-47.0) Mean Corpuscular Volume 85 fL (79-100) Mean Corpuscular Hemoglobin 29 pg (25-35) Mean Corpuscular Hemoglobin Concent 34 g/dL (31-37) Red Cell Distribution Width 15.2 % (11.5-14.5) Platelet Count 249 x10^3/uL (140-400) Neutrophils (%) (Auto) 52 % (31-73) Lymphocytes (%) (Auto) 39 % (24-48) Monocytes (%) (Auto) 7 % (0-9) Eosinophils (%) (Auto) 1 % (0-3) Basophils (%) (Auto) 1 % (0-3) Neutrophils # (Auto) 4.8 x10^3/uL (1.8-7.7) Lymphocytes # (Auto) 3.5 x10^3/uL (1.0-4.8) Monocytes # (Auto) 0.6 x10^3/uL (0.0-1.1) Eosinophils # (Auto) 0.1 x10^3/uL (0.0-0.7) Basophils # (Auto) 0.1 x10^3/uL (0.0-0.2) Sodium Level 139 mmol/L (136-145) Potassium Level 3.2 mmol/L (3.5-5.1) Chloride Level 105 mmol/L (98-107) Carbon Dioxide Level 27 mmol/L (21-32) Anion Gap 7 (6-14) Blood Urea Nitrogen 6 mg/dL (7-20) Creatinine 0.7 mg/dL (0.6-1.0) Estimated GFR (Cockcroft-Gault) 119.7 BUN/Creatinine Ratio 9 (6-20) Glucose Level 163 mg/dL (70-99) Calcium Level 8.0 mg/dL (8.5-10.1) Total Bilirubin 0.3 mg/dL (0.2-1.0) Aspartate Amino Transf (AST/SGOT) 36 U/L (15-37) Alanine Aminotransferase (ALT/SGPT) 29 U/L (14-59) Alkaline Phosphatase 59 U/L (46-116) Total Protein 5.9 g/dL (6.4-8.2) Albumin 2.7 g/dL (3.4-5.0) Albumin/Globulin Ratio 0.8 (1.0-1.7) Test 07/08/19 08:00 Glucose (Fingerstick) 215 mg/dL (70-99) Medications Current Medications Sodium Chloride 1,000 ml @ 1,000 mls/hr 1X ONCE IV Last administered on 07/06/19at 10:14; Start 07/06/19 at 10:15; Stop 07/06/19 at 11:14; Status DC Famotidine (Pepcid Vial) 20 mg 1X ONCE IVP Last administered on 07/06/19at 10:17; Start 07/06/19 at 10:15; Stop 07/06/19 at 10:16; Status DC Ondansetron HCl (Zofran) 4 mg 1X ONCE IV Last administered on 07/06/19at 10:15; Start 07/06/19 at 10:15; Stop 07/06/19 at 10:16; Status DC Haloperidol Lactate (Haldol Inj) 5 mg 1X ONCE IVP Last administered on 07/06/19at 11:36; Start 07/06/19 at 11:15; Stop 07/06/19 at 11:16; Status DC Prochlorperazine Edisylate (Compazine) 10 mg 1X ONCE IV Last administered on 07/06/19at 11:33; Start 07/06/19 at 11:15; Stop 07/06/19 at 11:16; Status DC Insulin Human Regular (HumuLIN R VIAL) 5 unit 1X ONCE IV Last administered on 07/06/19at 11:42; Start 07/06/19 at 11:30; Stop 07/06/19 at 11:31; Status DC Sodium Chloride 1,000 ml @ 125 mls/hr 1X ONCE IV Last administered on 07/06/19at 11:39; Start 07/06/19 at 11:30; Stop 07/06/19 at 19:29; Status DC Metoclopramide HCl (Reglan Vial) 10 mg 1X ONCE IV Last administered on 07/06/19at 13:47; Start 07/06/19 at 14:00; Stop 07/06/19 at 14:01; Status DC Azithromycin (Zithromax) 1,000 mg 1X ONCE PO ; Start 07/06/19 at 14:15; Stop 07/06/19 at 14:16; Status Cancel Metronidazole (Flagyl) 2,000 mg 1X ONCE PO ; Start 07/06/19 at 14:15; Stop 07/06/19 at 14:16; Status Cancel Promethazine HCl (Phenergan Supp) 25 mg 1X ONCE [place] ; Start 07/06/19 at 14:15; Stop 07/06/19 at 14:16; Status DC Metronidazole 100 ml @ 100 mls/hr 1X ONCE IV Last administered on 07/06/19at 15:45; Start 07/06/19 at 14:30; Stop 07/06/19 at 15:29; Status DC Azithromycin 250 ml @ 250 mls/hr 1X ONCE IV Last administered on 07/06/19at 17:25; Start 07/06/19 at 14:30; Stop 07/06/19 at 15:29; Status DC Ondansetron HCl (Zofran) 4 mg PRN Q8HRS PRN IV NAUSEA/VOMITING; Start 07/06/19 at 14:30; Stop 07/07/19 at 14:29; Status UNV Fentanyl Citrate (Fentanyl 2ml Vial) 50 mcg PRN Q1HR PRN IV PAIN Last administered on 07/06/19at 23:36; Start 07/06/19 at 14:30; Stop 07/07/19 at 14:29; Status DC Prochlorperazine Edisylate (Compazine) 10 mg PRN TID PRN IV NAUSEA, 2nd CHOICE; Start 07/06/19 at 14:30; Stop 07/06/19 at 16:41; Status DC Sodium Chloride 1,000 ml @ 75 mls/hr 1X IV ; Start 07/06/19 at 14:30; Stop 07/07/19 at 16:26; Status DC Sodium Chloride (Normal Saline Flush) 3 ml QSHIFT PRN IV AFTER MEDS AND BLOOD DRAWS; Start 07/06/19 at 14:30 Sodium Chloride 1,000 ml @ 100 mls/hr Q10H IV Last administered on 07/06/19at 16:49; Start 07/06/19 at 14:25 Multivitamins 10 ml/Thiamine HCl 100 mg/Folic Acid 1 mg/Sodium Chloride 1,011.2 ml @ 125 mls/ hr 1X ONCE IV Last administered on 07/06/19at 15:25; Start 07/06/19 at 14:30; Stop 07/06/19 at 22:35; Status DC Ondansetron HCl (Zofran) 4 mg PRN Q4HRS PRN IV NAUSEA/VOMITING, 1st CHOICE Last administered on 07/08/19at 06:03; Start 07/06/19 at 14:30 Acetaminophen (Tylenol) 650 mg PRN Q4HRS PRN PO TEMP OVER 100.4F OR MILD PAIN; Start 07/06/19 at 14:30 Clonidine HCl (Catapres) 0.1 mg PRN Q6HRS PRN PO SBP>160 OR DBP>90; Start 07/06 at 14:30 Docusate Sodium (Colace) 100 mg PRN BID PRN PO CONSTIPATION; Start 07/06/19 at 14:30 Albuterol Sulfate (Ventolin Neb Soln) 2.5 mg PRN Q4HRS PRN NEB SHORTNESS OF BREATH; Start 07/06/19 at 14:30 Guaifenesin (Robitussin) 200 mg PRN Q4HRS PRN PO COUGH; Start 07/06/19 at 14:30 Lorazepam (Ativan) 0.5 mg PRN Q4HRS PRN PO ANXIETY / AGITATION; Start 07/06/19 at 14:30 Enoxaparin Sodium (Lovenox 40mg Syringe) 40 mg Q24H SQ ; Start 07/06/19 at 15:00 Pantoprazole Sodium (PROTONIX VIAL for IV PUSH) 40 mg DAILYAC IVP Last administered on 07/07/19at 07:39; Start 07/06/19 at 16:30 Prochlorperazine Edisylate (Compazine) 10 mg PRN Q4HRS PRN IV NAUSEA/VOMITING, 2ND CHOICE Last administered on 07/07/19at 04:31; Start 07/06/19 at 16:45 Insulin Human Lispro (HumaLOG) 0-5 UNITS TIDWMEALS SQ Last administered on 07/07/19at 13:01; Start 07/06/19 at 17:00 Dextrose (Dextrose 50%-Water Syringe) 12.5 gm PRN Q15MIN PRN IV SEE COMMENTS; Start 07/06/19 at 16:45 Insulin Human Isoph/Insulin Regular (HumuLIN 70/30) 10 units BID SQ Last administered on 07/07/19at 21:39; Start 07/06/19 at 21:00 Insulin Human Lispro (HumaLOG) 5 units 1X ONCE SQ Last administered on 07/06/19at 17:32; Start 07/06/19 at 17:30; Stop 07/06/19 at 17:31; Status DC Zolpidem Tartrate (Ambien) 5 mg PRN QHS PRN PO INSOMNIA; Start 07/07/19 at 19:00 Metronidazole (Flagyl) 500 mg Q12HR PO Last administered on 07/07/19at 21:34; Start 07/07/19 at 21:00 Ondansetron HCl (Zofran Odt) 4 mg PRN Q6HRS PRN PO NAUSEA/VOMITING Last administered on 07/08/19 07:56; Start 07/08/19 at 07:30 Prochlorperazine (Compazine) 25 mg PRN Q12HR PRN [place] NAUSEA/VOMITING, 1ST CHOICE; Start 07/08/19 at 07:45 Promethazine HCl (Phenergan Supp) 25 mg PRN Q6HRS PRN [place] NAUSEA/VOMITING, 2ND CHOICE Last administered on 07/08/19at 07:56; Start 07/08/19 at 07:45 Active Scripts Active Reported Humulin N (Nph, Human Insulin Isophane) 100 Unit/1 Ml Vial 10 Unit SQ BID Vitals/I & O Vital Sign - Last 24 Hours 07/07/19 07/07/19 07/07/19 07/07/19 11:00 15:00 19:00 23:00 Temp 98.8 99.3 98.4 98.9 98.8 99.3 98.4 98.9 Pulse 71 104 83 84 Resp 17 18 18 B/P (MAP) 117/76 (90) 113/79 (90) 122/87 (99) 122/88 (99) Pulse Ox 92 97 99 99 O2 Delivery Room Air Room Air Room Air Room Air 07/08/19 07/08/19 03:00 07:00 Temp 98.1 98.3 98.1 98.3 Pulse 81 84 Resp 18 16 B/P (MAP) 131/94 (106) 140/96 (111) Pulse Ox 98 100 O2 Delivery Room Air Room Air Intake and Output 07/07/19 07/07/19 07/08/19 15:00 23:00 07:00 Intake Total 0 ml Balance 0 ml SHELLEY WATERS MD Jul 08, 2019 08:59
[2019-07-08] MEDS: INSULIN NPH/REG INSULIN 70/30 300 UNITS/3 ML INSULN.PEN. SQ SCH ×2 (09:00→21:46)
[2019-07-08 11:00] VITALS: BP 133/87
[2019-07-08] MEDS: ENOXAPARIN 40 MG/0.4 ML SYRINGE. SQ SCH (12:36)
[2019-07-08] MEDS ORDERED: POTASSIUM CHLORIDE 20 MEQ TABLET.ER. PO ONE (13:45)
[2019-07-08] MEDS ORDERED: LORazepam 1 MG TABLET PO PRN ×2 (13:45)
[2019-07-08] MEDS: IV NORMAL SALINE 1000ML BAG 1,000 ML IV SCH ×2 (13:45→21:47)
[2019-07-08] MEDS ORDERED: cloNIDine HCL 0.1 MG TABLET PO PRN (13:45)
[2019-07-08] MEDS ORDERED: diphenhydrAMINE 50 MG/ML VIAL IVP PRN (13:45)
[2019-07-08] MEDS: PROCHLORPERAZINE 10 MG/2 ML VIAL. IM PRN (13:57)
[2019-07-08] MEDS: busPIRone 10 MG TABLET. PO SCH ×2 (13:57→21:39)
[2019-07-08] MEDS ORDERED: MULTIVIT INFUSN,ADULT 4,VIT K 10 ML, THIAMINE INJ 100 MG, FOLIC ACID INJ 1 MG in IV NOR... IV ONE (14:30)
[2019-07-08 15:00] VITALS: BP 137/86
[2019-07-08] MEDS ORDERED: HYDROmorphone 2 MG/ML VIAL IV ONE (17:00)
[2019-07-08 19:00] VITALS: BP 126/86
[2019-07-08] MEDS: metroNIDAZOLE 0.75% VAGINAL 1 APP TUBE VG SCH (21:39)
[2019-07-08 23:00] VITALS: BP 109/70
[2019-07-08] MEDS: HYDROmorphone 2 MG/ML VIAL IV PRN (23:27)
[2019-07-09 03:00] VITALS: BP 122/81
[2019-07-09 04:57] LABS: BASO # 0.1 x10^3/uL (0.0-0.2); BASO % 1 % (0-3); EOS # 0.1 x10^3/uL (0.0-0.7); EOS % 1 % (0-3); HEMATOCRIT 30.4 % (36.0-47.0); LYMPH # 3.9 x10^3/uL (1.0-4.8); LYMPH % 29 % (24-48); MEAN CORPUSCULAR HEMOGLOBIN 28 pg (25-35); MEAN CORPUSCULAR HGB CONC 33 g/dL (31-37); MEAN CORPUSCULAR VOLUME 86 fL (79-100); MONO # 0.9 x10^3/uL (0.0-1.1); MONO % 7 % (0-9); NEUT # 8.5 x10^3/uL (1.8-7.7); NEUT % 63 % (31-73); PLATELET COUNT 263 x10^3/uL (140-400); RED BLOOD COUNT 3.55 x10^6/uL (3.50-5.40); RED CELL DISTRIBUTION WIDTH 14.7 % (11.5-14.5); WHITE BLOOD COUNT 13.5 x10^3/uL (4.0-11.0)
[2019-07-09 05:25] LABS: ALBUMIN 2.7 g/dL (3.4-5.0); ALBUMIN/GLOBULIN RATIO 0.8 (1.0-1.7); CALCIUM 8.2 mg/dL (8.5-10.1); CREATININE 0.7 mg/dL (0.6-1.0); GFR 119.7; POTASSIUM 3.3 mmol/L (3.5-5.1); TOTAL BILIRUBIN 0.3 mg/dL (0.2-1.0); TOTAL PROTEIN 5.9 g/dL (6.4-8.2)
[2019-07-09 07:00] VITALS: BP 122/82
[2019-07-09] MEDS: PANTOPRAZOLE IV PUSH 40 MG VIAL. IVP SCH (07:30)
[2019-07-09] MEDS: POTASSIUM CHLORIDE 20 MEQ TABLET.ER. PO SCH (08:00)
[2019-07-09] MEDS: INSULIN LISPRO 300 UNITS/3 ML VIAL. SQ SCH ×3 (08:00→17:00)
[2019-07-09] MEDS ORDERED: FOLIC ACID 1 MG TABLET. PO SCH (09:00)
[2019-07-09] MEDS: MULTIVIT INFUSN,ADULT 4,VIT K 10 ML, THIAMINE INJ 100 MG, FOLIC ACID INJ 1 MG in IV NOR... IV SCH ×2 (09:00→21:17)
[2019-07-09] MEDS: INSULIN NPH/REG INSULIN 70/30 300 UNITS/3 ML INSULN.PEN. SQ SCH ×2 (09:00→21:44)
[2019-07-09] MEDS: busPIRone 10 MG TABLET. PO SCH ×2 (09:00→21:00)
[2019-07-09] MEDS ORDERED: MULTIVITAMIN with MINERAL TABLET. PO SCH (09:00)
[2019-07-09] MEDS: metroNIDAZOLE 500 MG TABLET PO SCH (09:00)
[2019-07-09] MEDS ORDERED: THIAMINE IM 200 MG/2 ML VIAL. IM SCH (09:00)
[2019-07-09] MEDS: metroNIDAZOLE 0.75% VAGINAL 1 APP TUBE VG SCH ×2 (09:04→21:00)
[2019-07-09] MEDS: PROCHLORPERAZINE 10 MG/2 ML VIAL. IM PRN (09:05)
[2019-07-09] MEDS: LORazepam 0.5 MG TABLET PO PRN ×2 (09:09→15:57)
[2019-07-09] MEDS: IV NORMAL SALINE 1000ML BAG 1,000 ML IV SCH ×2 (09:45→19:45)
[2019-07-09 11:00] VITALS: BP 136/88
--- NOTE | 2019-07-09 13:05 | PDOC ---
PROGRESS NOTES History of Present Illness History of Present Illness Assessment/Plan Assessment/Plan IMPRESSION 1. INTRACTABLE NAUSEA, VOMITING on ct exam, Solid abdominal viscera not well evaluated in the absence of contrast material. No apparent attenuation abnormality of the liver or spleen. Pancreas, adrenal glands and kidneys are unremarkable. No hydronephrosis. No calcific renal stone. The gallbladder is not identified and may be collapsed or surgically absent. There is some focal fat near the falciform ligament.Unopacified GI tract normal in caliber and contour. No focal bowel wall thickening. No inflammatory stranding in the mesentery. The appendix is not clearly identified 2. THC ABUSE 3. DEHYDRATION 4. DIABETES .///poorly controlled gastroparesis. Medical therapy for symptom control. US assess for GB disease PLAN ADMIT IV FLUID SUPPORT ACCUCHECKS SS INSULIN DVT PROPHYLAXIS GI CONSULT 07/08 pt states she cannot keep anything down by mouth today, iv out, will restart banana bag, CIWA protocol, very anxious d/w faily in room 07/09 pt wants to leave ama 28 MIN PT EXAM, CHART REVIEW, > 50% OF TIME SPENT WITH EXAM, CHART REVIEW, PT CARE COORDINATION Try clears, ADAT. d/c planning 34 min Vitals Vitals Vital Signs Date Time Temp Pulse Resp B/P (MAP) Pulse Ox O2 Delivery O2 Flow Rate FiO2 07/09/19 11:00 98.6 91 18 136/88 (104) 99 Room Air 98.6 Physical Exam General: Alert, Oriented X3, Cooperative, No acute distress, mild distress Heart: Regular rate, Normal S1 Lungs: Clear Abdomen: Normal bowel sounds, Soft, No hepatosplenomegaly Extremities: No cyanosis, No edema Skin: No significant lesion Labs LABS Laboratory Tests Test 07/08/19 14:21 07/08/19 16:37 07/08/19 20:12 07/09/19 04:45 Lactic Acid Level 1.3 mmol/L (0.4-2.0) Glucose (Fingerstick) 175 mg/dL (70-99) 148 mg/dL (70-99) White Blood Count 13.5 x10^3/uL (4.0-11.0) Red Blood Count 3.55 x10^6/uL (3.50-5.40) Hemoglobin 10.0 g/dL (12.0-15.5) Hematocrit 30.4 % (36.0-47.0) Mean Corpuscular Volume 86 fL (79-100) Mean Corpuscular Hemoglobin 28 pg (25-35) Mean Corpuscular Hemoglobin Concent 33 g/dL (31-37) Red Cell Distribution Width 14.7 % (11.5-14.5) Platelet Count 263 x10^3/uL (140-400) Neutrophils (%) (Auto) 63 % (31-73) Lymphocytes (%) (Auto) 29 % (24-48) Monocytes (%) (Auto) 7 % (0-9) Eosinophils (%) (Auto) 1 % (0-3) Basophils (%) (Auto) 1 % (0-3) Neutrophils # (Auto) 8.5 x10^3/uL (1.8-7.7) Lymphocytes # (Auto) 3.9 x10^3/uL (1.0-4.8) Monocytes # (Auto) 0.9 x10^3/uL (0.0-1.1) Eosinophils # (Auto) 0.1 x10^3/uL (0.0-0.7) Basophils # (Auto) 0.1 x10^3/uL (0.0-0.2) Sodium Level 141 mmol/L (136-145) Potassium Level 3.3 mmol/L (3.5-5.1) Chloride Level 106 mmol/L (98-107) Carbon Dioxide Level 26 mmol/L (21-32) Anion Gap 9 (6-14) Blood Urea Nitrogen 6 mg/dL (7-20) Creatinine 0.7 mg/dL (0.6-1.0) Estimated GFR (Cockcroft-Gault) 119.7 BUN/Creatinine Ratio 9 (6-20) Glucose Level 161 mg/dL (70-99) Calcium Level 8.2 mg/dL (8.5-10.1) Total Bilirubin 0.3 mg/dL (0.2-1.0) Aspartate Amino Transf (AST/SGOT) 18 U/L (15-37) Alanine Aminotransferase (ALT/SGPT) 24 U/L (14-59) Alkaline Phosphatase 56 U/L (46-116) Total Protein 5.9 g/dL (6.4-8.2) Albumin 2.7 g/dL (3.4-5.0) Albumin/Globulin Ratio 0.8 (1.0-1.7) Test 07/09/19 07:54 07/09/19 11:00 Glucose (Fingerstick) 143 mg/dL (70-99) 212 mg/dL (70-99) Assessment and Plan Assessmemt and Plan Problems Medical Problems: (1) Hyperglycemia Status: Acute (2) Nausea and vomiting Status: Acute (3) Trichomonas vaginitis Status: Acute Comment Review of Relevant I have reviewed the following items yoanna (where applicable) has been applied. Labs Laboratory Tests Test 07/07/19 16:35 07/07/19 21:08 07/08/19 05:19 07/08/19 08:00 Glucose (Fingerstick) 75 mg/dL (70-99) 296 mg/dL (70-99) 215 mg/dL (70-99) White Blood Count 9.2 x10^3/uL (4.0-11.0) Red Blood Count 3.67 x10^6/uL (3.50-5.40) Hemoglobin 10.5 g/dL (12.0-15.5) Hematocrit 31.3 % (36.0-47.0) Mean Corpuscular Volume 85 fL (79-100) Mean Corpuscular Hemoglobin 29 pg (25-35) Mean Corpuscular Hemoglobin Concent 34 g/dL (31-37) Red Cell Distribution Width 15.2 % (11.5-14.5) Platelet Count 249 x10^3/uL (140-400) Neutrophils (%) (Auto) 52 % (31-73) Lymphocytes (%) (Auto) 39 % (24-48) Monocytes (%) (Auto) 7 % (0-9) Eosinophils (%) (Auto) 1 % (0-3) Basophils (%) (Auto) 1 % (0-3) Neutrophils # (Auto) 4.8 x10^3/uL (1.8-7.7) Lymphocytes # (Auto) 3.5 x10^3/uL (1.0-4.8) Monocytes # (Auto) 0.6 x10^3/uL (0.0-1.1) Eosinophils # (Auto) 0.1 x10^3/uL (0.0-0.7) Basophils # (Auto) 0.1 x10^3/uL (0.0-0.2) Sodium Level 139 mmol/L (136-145) Potassium Level 3.2 mmol/L (3.5-5.1) Chloride Level 105 mmol/L (98-107) Carbon Dioxide Level 27 mmol/L (21-32) Anion Gap 7 (6-14) Blood Urea Nitrogen 6 mg/dL (7-20) Creatinine 0.7 mg/dL (0.6-1.0) Estimated GFR (Cockcroft-Gault) 119.7 BUN/Creatinine Ratio 9 (6-20) Glucose Level 163 mg/dL (70-99) Calcium Level 8.0 mg/dL (8.5-10.1) Total Bilirubin 0.3 mg/dL (0.2-1.0) Aspartate Amino Transf (AST/SGOT) 36 U/L (15-37) Alanine Aminotransferase (ALT/SGPT) 29 U/L (14-59) Alkaline Phosphatase 59 U/L (46-116) Total Protein 5.9 g/dL (6.4-8.2) Albumin 2.7 g/dL (3.4-5.0) Albumin/Globulin Ratio 0.8 (1.0-1.7) Test 07/08/19 12:23 07/08/19 14:21 07/08/19 16:37 07/08/19 20:12 Glucose (Fingerstick) 210 mg/dL (70-99) 175 mg/dL (70-99) 148 mg/dL (70-99) Lactic Acid Level 1.3 mmol/L (0.4-2.0) Test 07/09/19 04:45 07/09/19 07:54 07/09/19 11:00 White Blood Count 13.5 x10^3/uL (4.0-11.0) Red Blood Count 3.55 x10^6/uL (3.50-5.40) Hemoglobin 10.0 g/dL (12.0-15.5) Hematocrit 30.4 % (36.0-47.0) Mean Corpuscular Volume 86 fL (79-100) Mean Corpuscular Hemoglobin 28 pg (25-35) Mean Corpuscular Hemoglobin Concent 33 g/dL (31-37) Red Cell Distribution Width 14.7 % (11.5-14.5) Platelet Count 263 x10^3/uL (140-400) Neutrophils (%) (Auto) 63 % (31-73) Lymphocytes (%) (Auto) 29 % (24-48) Monocytes (%) (Auto) 7 % (0-9) Eosinophils (%) (Auto) 1 % (0-3) Basophils (%) (Auto) 1 % (0-3) Neutrophils # (Auto) 8.5 x10^3/uL (1.8-7.7) Lymphocytes # (Auto) 3.9 x10^3/uL (1.0-4.8) Monocytes # (Auto) 0.9 x10^3/uL (0.0-1.1) Eosinophils # (Auto) 0.1 x10^3/uL (0.0-0.7) Basophils # (Auto) 0.1 x10^3/uL (0.0-0.2) Sodium Level 141 mmol/L (136-145) Potassium Level 3.3 mmol/L (3.5-5.1) Chloride Level 106 mmol/L (98-107) Carbon Dioxide Level 26 mmol/L (21-32) Anion Gap 9 (6-14) Blood Urea Nitrogen 6 mg/dL (7-20) Creatinine 0.7 mg/dL (0.6-1.0) Estimated GFR (Cockcroft-Gault) 119.7 BUN/Creatinine Ratio 9 (6-20) Glucose Level 161 mg/dL (70-99) Calcium Level 8.2 mg/dL (8.5-10.1) Total Bilirubin 0.3 mg/dL (0.2-1.0) Aspartate Amino Transf (AST/SGOT) 18 U/L (15-37) Alanine Aminotransferase (ALT/SGPT) 24 U/L (14-59) Alkaline Phosphatase 56 U/L (46-116) Total Protein 5.9 g/dL (6.4-8.2) Albumin 2.7 g/dL (3.4-5.0) Albumin/Globulin Ratio 0.8 (1.0-1.7) Glucose (Fingerstick) 143 mg/dL (70-99) 212 mg/dL (70-99) Laboratory Tests Test 07/08/19 14:21 07/08/19 16:37 07/08/19 20:12 07/09/19 04:45 Lactic Acid Level 1.3 mmol/L (0.4-2.0) Glucose (Fingerstick) 175 mg/dL (70-99) 148 mg/dL (70-99) White Blood Count 13.5 x10^3/uL (4.0-11.0) Red Blood Count 3.55 x10^6/uL (3.50-5.40) Hemoglobin 10.0 g/dL (12.0-15.5) Hematocrit 30.4 % (36.0-47.0) Mean Corpuscular Volume 86 fL (79-100) Mean Corpuscular Hemoglobin 28 pg (25-35) Mean Corpuscular Hemoglobin Concent 33 g/dL (31-37) Red Cell Distribution Width 14.7 % (11.5-14.5) Platelet Count 263 x10^3/uL (140-400) Neutrophils (%) (Auto) 63 % (31-73) Lymphocytes (%) (Auto) 29 % (24-48) Monocytes (%) (Auto) 7 % (0-9) Eosinophils (%) (Auto) 1 % (0-3) Basophils (%) (Auto) 1 % (0-3) Neutrophils # (Auto) 8.5 x10^3/uL (1.8-7.7) Lymphocytes # (Auto) 3.9 x10^3/uL (1.0-4.8) Monocytes # (Auto) 0.9 x10^3/uL (0.0-1.1) Eosinophils # (Auto) 0.1 x10^3/uL (0.0-0.7) Basophils # (Auto) 0.1 x10^3/uL (0.0-0.2) Sodium Level 141 mmol/L (136-145) Potassium Level 3.3 mmol/L (3.5-5.1) Chloride Level 106 mmol/L (98-107) Carbon Dioxide Level 26 mmol/L (21-32) Anion Gap 9 (6-14) Blood Urea Nitrogen 6 mg/dL (7-20) Creatinine 0.7 mg/dL (0.6-1.0) Estimated GFR (Cockcroft-Gault) 119.7 BUN/Creatinine Ratio 9 (6-20) Glucose Level 161 mg/dL (70-99) Calcium Level 8.2 mg/dL (8.5-10.1) Total Bilirubin 0.3 mg/dL (0.2-1.0) Aspartate Amino Transf (AST/SGOT) 18 U/L (15-37) Alanine Aminotransferase (ALT/SGPT) 24 U/L (14-59) Alkaline Phosphatase 56 U/L (46-116) Total Protein 5.9 g/dL (6.4-8.2) Albumin 2.7 g/dL (3.4-5.0) Albumin/Globulin Ratio 0.8 (1.0-1.7) Test 07/09/19 07:54 07/09/19 11:00 Glucose (Fingerstick) 143 mg/dL (70-99) 212 mg/dL (70-99) Medications Current Medications Sodium Chloride 1,000 ml @ 1,000 mls/hr 1X ONCE IV Last administered on 07/06/19at 10:14; Start 07/06/19 at 10:15; Stop 07/06/19 at 11:14; Status DC Famotidine (Pepcid Vial) 20 mg 1X ONCE IVP Last administered on 07/06/19at 10:17; Start 07/06/19 at 10:15; Stop 07/06/19 at 10:16; Status DC Ondansetron HCl (Zofran) 4 mg 1X ONCE IV Last administered on 07/06/19at 10:15; Start 07/06/19 at 10:15; Stop 07/06/19 at 10:16; Status DC Haloperidol Lactate (Haldol Inj) 5 mg 1X ONCE IVP Last administered on 07/06/19at 11:36; Start 07/06/19 at 11:15; Stop 07/06/19 at 11:16; Status DC Prochlorperazine Edisylate (Compazine) 10 mg 1X ONCE IV Last administered on 07/06/19at 11:33; Start 07/06/19 at 11:15; Stop 07/06/19 at 11:16; Status DC Insulin Human Regular (HumuLIN R VIAL) 5 unit 1X ONCE IV Last administered on 07/06/19at 11:42; Start 07/06/19 at 11:30; Stop 07/06/19 at 11:31; Status DC Sodium Chloride 1,000 ml @ 125 mls/hr 1X ONCE IV Last administered on 07/06/19at 11:39; Start 07/06/19 at 11:30; Stop 07/06/19 at 19:29; Status DC Metoclopramide HCl (Reglan Vial) 10 mg 1X ONCE IV Last administered on 07/06/19at 13:47; Start 07/06/19 at 14:00; Stop 07/06/19 at 14:01; Status DC Azithromycin (Zithromax) 1,000 mg 1X ONCE PO ; Start 07/06/19 at 14:15; Stop 07/06/19 at 14:16; Status Cancel Metronidazole (Flagyl) 2,000 mg 1X ONCE PO ; Start 07/06/19 at 14:15; Stop 07/06/19 at 14:16; Status Cancel Promethazine HCl (Phenergan Supp) 25 mg 1X ONCE SC ; Start 07/06/19 at 14:15; Stop 07/06/19 at 14:16; Status DC Metronidazole 100 ml @ 100 mls/hr 1X ONCE IV Last administered on 07/06/19at 15:45; Start 07/06/19 at 14:30; Stop 07/06/19 at 15:29; Status DC Azithromycin 250 ml @ 250 mls/hr 1X ONCE IV Last administered on 07/06/19at 17:25; Start 07/06/19 at 14:30; Stop 07/06/19 at 15:29; Status DC Ondansetron HCl (Zofran) 4 mg PRN Q8HRS PRN IV NAUSEA/VOMITING; Start 07/06/19 at 14:30; Stop 07/07/19 at 14:29; Status UNV Fentanyl Citrate (Fentanyl 2ml Vial) 50 mcg PRN Q1HR PRN IV PAIN Last administered on 07/06/19at 23:36; Start 07/06/19 at 14:30; Stop 07/07/19 at 14:29; Status DC Prochlorperazine Edisylate (Compazine) 10 mg PRN TID PRN IV NAUSEA, 2nd CHOICE; Start 07/06/19 at 14:30; Stop 07/06/19 at 16:41; Status DC Sodium Chloride 1,000 ml @ 75 mls/hr 1X IV ; Start 07/06/19 at 14:30; Stop 07/07/19 at 16:26; Status DC Sodium Chloride (Normal Saline Flush) 3 ml QSHIFT PRN IV AFTER MEDS AND BLOOD DRAWS; Start 07/06/19 at 14:30 Sodium Chloride 1,000 ml @ 100 mls/hr Q10H IV Last administered on 07/06/19at 16:49; Start 07/06/19 at 14:25; Stop 07/08/19 at 13:38; Status DC Multivitamins 10 ml/Thiamine HCl 100 mg/Folic Acid 1 mg/Sodium Chloride 1,011.2 ml @ 125 mls/ hr 1X ONCE IV Last administered on 07/06/19at 15:25; Start 07/06/19 at 14:30; Stop 07/06/19 at 22:35; Status DC Ondansetron HCl (Zofran) 4 mg PRN Q4HRS PRN IV NAUSEA/VOMITING, 1st CHOICE Last administered on 07/08/19at 06:03; Start 07/06/19 at 14:30 Acetaminophen (Tylenol) 650 mg PRN Q4HRS PRN PO TEMP OVER 100.4F OR MILD PAIN; Start 07/06/19 at 14:30 Clonidine HCl (Catapres) 0.1 mg PRN Q6HRS PRN PO SBP>160 OR DBP>90; Start 07/06/19 at 14:30; Stop 07/08/19 at 16:52; Status DC Docusate Sodium (Colace) 100 mg PRN BID PRN PO CONSTIPATION; Start 07/06/19 at 14:30 Albuterol Sulfate (Ventolin Neb Soln) 2.5 mg PRN Q4HRS PRN NEB SHORTNESS OF BREATH; Start 07/06/19 at 14:30 Guaifenesin (Robitussin) 200 mg PRN Q4HRS PRN PO COUGH; Start 07/06/19 at 14:30 Lorazepam (Ativan) 0.5 mg PRN Q4HRS PRN PO ANXIETY / AGITATION Last administered on 07/09/19at 09:09; Start 07/06/19 at 14:30 Enoxaparin Sodium (Lovenox 40mg Syringe) 40 mg Q24H SQ ; Start 07/06/19 at 15:00 Pantoprazole Sodium (PROTONIX VIAL for IV PUSH) 40 mg DAILYAC IVP Last administered on 07/07/19 07:39; Start 07/06/19 at 16:30 Prochlorperazine Edisylate (Compazine) 10 mg PRN Q4HRS PRN IV NAUSEA/VOMITING, 2ND CHOICE Last administered on 07/07/19 04:31; Start 07/06/19 at 16:45 Insulin Human Lispro (HumaLOG) 0-5 UNITS TIDWMEALS SQ Last administered on 07/09/19 12:22; Start 07/06/19 at 17:00 Dextrose (Dextrose 50%-Water Syringe) 12.5 gm PRN Q15MIN PRN IV SEE COMMENTS; Start 07/06/19 at 16:45 Insulin Human Isoph/Insulin Regular (HumuLIN 70/30) 10 units BID SQ Last administered on 07/08/19 21:46; Start 07/06/19 at 21:00 Insulin Human Lispro (HumaLOG) 5 units 1X ONCE SQ Last administered on 07/06/19 17:32; Start 07/06/19 at 17:30; Stop 07/06/19 at 17:31; Status DC Zolpidem Tartrate (Ambien) 5 mg PRN QHS PRN PO INSOMNIA; Start 07/07/19 at 19:00 Metronidazole (Flagyl) 500 mg Q12HR PO Last administered on 07/07/19 21:34; Start 07/07/19 at 21:00 Ondansetron HCl (Zofran Odt) 4 mg PRN Q6HRS PRN PO NAUSEA/VOMITING Last administered on 07/08/19 07:56; Start 07/08/19 at 07:30 Prochlorperazine (Compazine) 25 mg PRN Q12HR PRN SC NAUSEA/VOMITING, 1ST CHOICE Last administered on 07/08/19 10:09; Start 07/08/19 at 07:45 Promethazine HCl (Phenergan Supp) 25 mg PRN Q6HRS PRN SC NAUSEA/VOMITING, 2ND CHOICE Last administered on 07/08/19 07:56; Start 07/08/19 at 07:45 Prochlorperazine Edisylate (Compazine) 10 mg PRN Q6HRS PRN IM NAUSEA/VOMITING Last administered on 9/29/19at 09:05; Start 07/08/19 at 13:45 Buspirone HCl (Buspar) 10 mg BID PO Last administered on 07/08/19at 21:39; Start 07/08/19 at 14:00 Multivitamins 10 ml/Thiamine HCl 100 mg/Folic Acid 1 mg/Sodium Chloride 1,011.2 ml @ 100 mls/ hr DAILY IV ; Start 07/09/19 at 09:00; Stop 07/13/19 at 19:07 Multivitamins (Thera M Plus) 1 tab DAILY PO ; Start 07/09/19 at 09:00; Status UNV Folic Acid (Folic Acid) 1 mg DAILY PO ; Start 07/09/19 at 09:00; Status UNV Thiamine HCl 100 mg DAILY IM ; Start 07/09/19 at 09:00; Stop 07/14/19 at 08:59; Status UNV Lorazepam (Ativan) 4 mg PRN Q1HR PRN PO For CIWA 8-14; Start 07/08/19 at 13:45 Lorazepam (Ativan) 8 mg PRN Q1HR PRN PO For CIWA 15 or greater; Start 07/08/19 at 13:45 Lorazepam (Ativan Inj) 2 mg PRN Q1HR PRN IV For CIWA 8-14; Start 07/08/19 at 13:45 Lorazepam (Ativan Inj) 4 mg PRN Q1HR PRN IV For CIWA 15 or greater; Start 07/08/19 at 13:45 Diphenhydramine HCl (Benadryl) 25 mg PRN Q15MIN PRN IVP EPS symptoms 2'Haldol admin; Start 07/08/19 at 13:45 Clonidine HCl (Catapres) 0.1 mg PRN Q1HR PRN PO SBP > 180 or DBP > 100, MRX3; Start 07/08/19 at 13:45 Lorazepam (Ativan Inj) 2 mg PRN Q15MIN PRN IV SEE COMMENTS; Start 07/08/19 at 13:45; Status UNV Lorazepam (Ativan Inj) 4 mg PRN Q15MIN PRN IV SEE COMMENTS; Start 07/08/19 at 13:45; Status UNV Potassium Chloride (Klor-Con) 40 meq 1X ONCE PO ; Start 07/08/19 at 13:45; Stop 07/08/19 at 13:51; Status DC Potassium Chloride (Klor-Con) 20 meq DAILYWBKFT PO ; Start 07/09/19 at 08:00 Sodium Chloride 1,000 ml @ 100 mls/hr Q10H IV ; Start 07/08/19 at 13:45 Multivitamins 10 ml/Thiamine HCl 100 mg/Folic Acid 1 mg/Sodium Chloride 1,011.2 ml @ 1,000.088 mls/hr 1X ONCE IV ; Start 07/08/19 at 14:30; Stop 07/08/19 at 15:30; Status DC Metronidazole (Metrogel) 1 simona QHS VG Last administered on 07/09/19at 09:04; Start 07/08/19 at 21:00; Stop 07/12/19 at 20:59 Hydromorphone HCl (Dilaudid) 0.5 mg PRN Q4HRS ONCE IV Last administered on 07/08/19at 17:04; Start 07/08/19 at 17:00; Stop 07/08/19 at 17:01; Status DC Hydromorphone HCl (Dilaudid) 0.5 mg PRN Q4HRS PRN IV PAIN Last administered on 07/08/19at 23:27; Start 07/08/19 at 18:30 Active Scripts Active Reported Humulin N (Nph, Human Insulin Isophane) 100 Unit/1 Ml Vial 10 Unit SQ BID Vitals/I & O Vital Sign - Last 24 Hours 07/08/19 07/08/19 07/08/19 07/08/19 15:00 17:04 19:00 23:00 Temp 98.4 99.4 98.1 98.4 99.4 98.1 Pulse 88 79 89 Resp 18 18 18 B/P (MAP) 137/86 (103) 126/86 (99) 109/70 (83) Pulse Ox 100 100 100 98 O2 Delivery Room Air Room Air Room Air Room Air 07/09/19 07/09/19 07/09/19 03:00 07:00 11:00 Temp 98.1 98.0 98.6 98.1 98.0 98.6 Pulse 87 86 91 Resp 20 18 18 B/P (MAP) 122/81 (95) 122/82 (95) 136/88 (104) Pulse Ox 98 98 99 O2 Delivery Room Air Room Air Room Air Intake and Output 07/08/19 07/08/19 07/09/19 15:00 23:00 07:00 Intake Total 120 ml Output Total 300 ml Balance -300 ml 120 ml SHELLEY WATERS MD Jul 09, 2019 13:05
--- NOTE | 2019-07-09 13:13 | NUR ---
Pt requesting to be discharged today. States, "Evita had enough. I dont feel good. I'm just done." Will relay info to provider.
[2019-07-09 15:00] VITALS: BP 115/74
[2019-07-09] MEDS: ENOXAPARIN 40 MG/0.4 ML SYRINGE. SQ SCH (15:00)
[2019-07-09 19:00] VITALS: BP 117/85
[2019-07-09] MEDS: PROCHLORPERAZINE 10 MG/2 ML VIAL. IV PRN (21:38)
[2019-07-09] MEDS: HYDROmorphone 2 MG/ML VIAL IV PRN (21:38)
[2019-07-09 23:00] VITALS: BP 106/64
[2019-07-10 03:00] VITALS: BP 110/70
[2019-07-10] MEDS: IV NORMAL SALINE 1000ML BAG 1,000 ML IV SCH ×2 (05:45→18:30)
[2019-07-10 07:00] VITALS: BP 107/76
[2019-07-10] MEDS: INSULIN LISPRO 300 UNITS/3 ML VIAL. SQ SCH ×3 (08:00→17:00)
[2019-07-10] MEDS: POTASSIUM CHLORIDE 20 MEQ TABLET.ER. PO SCH (08:30)
[2019-07-10] MEDS: PANTOPRAZOLE IV PUSH 40 MG VIAL. IVP SCH (08:30)
[2019-07-10] MEDS: MULTIVIT INFUSN,ADULT 4,VIT K 10 ML, THIAMINE INJ 100 MG, FOLIC ACID INJ 1 MG in IV NOR... IV SCH (08:34)
--- NOTE | 2019-07-10 08:41 | PDOC ---
PROGRESS NOTES History of Present Illness History of Present Illness Assessment/Plan Assessment/Plan IMPRESSION 1. INTRACTABLE NAUSEA, VOMITING, slow to resolve on ct exam, Solid abdominal viscera not well evaluated in the absence of contrast material. No apparent attenuation abnormality of the liver or spleen. Pancreas, adrenal glands and kidneys are unremarkable. No hydronephrosis. No calcific renal stone. The gallbladder is not identified and may be collapsed or surgically absent. There is some focal fat near the falciform ligament.Unopacified GI tract normal in caliber and contour. No focal bowel wall thickening. No inflammatory stranding in the mesentery. The appendix is not clearly identified 2. THC ABUSE 3. DEHYDRATION 4. DIABETES .///poorly controlled// gastroparesis. Medical therapy for symptom control. US assess for GB disease 5. leukocytosis without fever PLAN ADMIT IV FLUID SUPPORT ACCUCHECKS SS INSULIN DVT PROPHYLAXIS GI CONSULT emperiv iv rocephin 07/08 pt states she cannot keep anything down by mouth today, iv out, will res tart banana bag, CIWA protocol, very anxious d/w faily in room 07/09 pt wants to leave ama, changed her mind, agrees to MIDLINE IV d/w mother in room 07/10 Did not eat much breakfast, seems depressed 27 MIN PT EXAM, CHART REVIEW, > 50% OF TIME SPENT WITH EXAM, CHART REVIEW, PT CARE COORDINATION ADAT. Vitals Vitals Vital Signs Date Time Temp Pulse Resp B/P (MAP) Pulse Ox O2 Delivery O2 Flow Rate FiO2 07/10/19 07:00 98.1 97 17 107/76 (86) 98 Room Air 98.1 Physical Exam General: Alert, Oriented X3, Cooperative, No acute distress Heart: Regular rate, Normal S1, No murmurs Lungs: Clear Abdomen: Normal bowel sounds, Soft, No tenderness, No hepatosplenomegaly Extremities: No cyanosis, No edema Skin: No significant lesion Labs LABS PATIENT: MANDA EDWARDS ACCT: [id number] LOC: [address] [place] [address] U: [id number] AGE/SX: ROOM: 567 RE07/06/[address]: SHELLEY WATERS MD : 1990 BED: 1 DIS: STATUS: ADM IN TLOC: SPEC #: [id number] HEYDI: 07/08/19 STATUS: RES REQ #: [id number] RECD: 07/08/19-[address]: SHELLEY WATERS MD SOURCE: BLOOD ENTR: 07/08/19-[address] [facility] [address]: CAROLYN ABDI SPDESC: MANUEL KHAN MD ORDERED: BCULT Procedure Result BLOOD CULTURE Preliminary NO GROWTH AFTER 1 DAY Laboratory Tests Test 07/09/19 11:00 07/09/19 16:11 07/09/19 20:58 07/10/19 07:18 Glucose (Fingerstick) 212 mg/dL (70-99) 95 mg/dL (70-99) 246 mg/dL (70-99) 158 mg/dL (70-99) Assessment and Plan Assessmemt and Plan Problems Medical Problems: (1) Hyperglycemia Status: Acute (2) Nausea and vomiting Status: Acute (3) Trichomonas vaginitis Status: Acute Comment Review of Relevant I have reviewed the following items yoanna (where applicable) has been applied. Labs Laboratory Tests Test 07/08/19 12:23 07/08/19 14:21 07/08/19 16:37 07/08/19 20:12 Glucose (Fingerstick) 210 mg/dL (70-99) 175 mg/dL (70-99) 148 mg/dL (70-99) Lactic Acid Level 1.3 mmol/L (0.4-2.0) Test 07/09/19 04:45 07/09/19 07:54 07/09/19 11:00 07/09/19 16:11 White Blood Count 13.5 x10^3/uL (4.0-11.0) Red Blood Count 3.55 x10^6/uL (3.50-5.40) Hemoglobin 10.0 g/dL (12.0-15.5) Hematocrit 30.4 % (36.0-47.0) Mean Corpuscular Volume 86 fL (79-100) Mean Corpuscular Hemoglobin 28 pg (25-35) Mean Corpuscular Hemoglobin Concent 33 g/dL (31-37) Red Cell Distribution Width 14.7 % (11.5-14.5) Platelet Count 263 x10^3/uL (140-400) Neutrophils (%) (Auto) 63 % (31-73) Lymphocytes (%) (Auto) 29 % (24-48) Monocytes (%) (Auto) 7 % (0-9) Eosinophils (%) (Auto) 1 % (0-3) Basophils (%) (Auto) 1 % (0-3) Neutrophils # (Auto) 8.5 x10^3/uL (1.8-7.7) Lymphocytes # (Auto) 3.9 x10^3/uL (1.0-4.8) Monocytes # (Auto) 0.9 x10^3/uL (0.0-1.1) Eosinophils # (Auto) 0.1 x10^3/uL (0.0-0.7) Basophils # (Auto) 0.1 x10^3/uL (0.0-0.2) Sodium Level 141 mmol/L (136-145) Potassium Level 3.3 mmol/L (3.5-5.1) Chloride Level 106 mmol/L (98-107) Carbon Dioxide Level 26 mmol/L (21-32) Anion Gap 9 (6-14) Blood Urea Nitrogen 6 mg/dL (7-20) Creatinine 0.7 mg/dL (0.6-1.0) Estimated GFR (Cockcroft-Gault) 119.7 BUN/Creatinine Ratio 9 (6-20) Glucose Level 161 mg/dL (70-99) Calcium Level 8.2 mg/dL (8.5-10.1) Total Bilirubin 0.3 mg/dL (0.2-1.0) Aspartate Amino Transf (AST/SGOT) 18 U/L (15-37) Alanine Aminotransferase (ALT/SGPT) 24 U/L (14-59) Alkaline Phosphatase 56 U/L (46-116) Total Protein 5.9 g/dL (6.4-8.2) Albumin 2.7 g/dL (3.4-5.0) Albumin/Globulin Ratio 0.8 (1.0-1.7) Glucose (Fingerstick) 143 mg/dL (70-99) 212 mg/dL (70-99) 95 mg/dL (70-99) Test 07/09/19 20:58 07/10/19 07:18 Glucose (Fingerstick) 246 mg/dL (70-99) 158 mg/dL (70-99) Laboratory Tests Test 07/09/19 11:00 07/09/19 16:11 07/09/19 20:58 07/10/19 07:18 Glucose (Fingerstick) 212 mg/dL (70-99) 95 mg/dL (70-99) 246 mg/dL (70-99) 158 mg/dL (70-99) Microbiology 07/08/19 Blood Culture - Preliminary, Resulted NO GROWTH AFTER 1 DAY Medications Current Medications Sodium Chloride 1,000 ml @ 1,000 mls/hr 1X ONCE IV Last administered on 07/06/19at 10:14; Start 07/06/19 at 10:15; Stop 07/06/19 at 11:14; Status DC Famotidine (Pepcid Vial) 20 mg 1X ONCE IVP Last administered on 07/06/19at 10:17; Start 07/06/19 at 10:15; Stop 07/06/19 at 10:16; Status DC Ondansetron HCl (Zofran) 4 mg 1X ONCE IV Last administered on 07/06/19at 10:15; Start 07/06/19 at 10:15; Stop 07/06/19 at 10:16; Status DC Haloperidol Lactate (Haldol Inj) 5 mg 1X ONCE IVP Last administered on 07/06/19at 11:36; Start 07/06/19 at 11:15; Stop 07/06/19 at 11:16; Status DC Prochlorperazine Edisylate (Compazine) 10 mg 1X ONCE IV Last administered on 07/06/19at 11:33; Start 07/06/19 at 11:15; Stop 07/06/19 at 11:16; Status DC Insulin Human Regular (HumuLIN R VIAL) 5 unit 1X ONCE IV Last administered on 07/06/19at 11:42; Start 07/06/19 at 11:30; Stop 07/06/19 at 11:31; Status DC Sodium Chloride 1,000 ml @ 125 mls/hr 1X ONCE IV Last administered on 07/06/19at 11:39; Start 07/06/19 at 11:30; Stop 07/06/19 at 19:29; Status DC Metoclopramide HCl (Reglan Vial) 10 mg 1X ONCE IV Last administered on 07/06/19at 13:47; Start 07/06/19 at 14:00; Stop 07/06/19 at 14:01; Status DC Azithromycin (Zithromax) 1,000 mg 1X ONCE PO ; Start 07/06/19 at 14:15; Stop 07/06/19 at 14:16; Status Cancel Metronidazole (Flagyl) 2,000 mg 1X ONCE PO ; Start 07/06/19 at 14:15; Stop 07/06/19 at 14:16; Status Cancel Promethazine HCl (Phenergan Supp) 25 mg 1X ONCE MI ; Start 07/06/19 at 14:15; Stop 07/06/19 at 14:16; Status DC Metronidazole 100 ml @ 100 mls/hr 1X ONCE IV Last administered on 07/06/19at 15:45; Start 07/06/19 at 14:30; Stop 07/06/19 at 15:29; Status DC Azithromycin 250 ml @ 250 mls/hr 1X ONCE IV Last administered on 07/06/19at 17:25; Start 07/06/19 at 14:30; Stop 07/06/19 at 15:29; Status DC Ondansetron HCl (Zofran) 4 mg PRN Q8HRS PRN IV NAUSEA/VOMITING; Start 07/06/19 at 14:30; Stop 07/07/19 at 14:29; Status UNV Fentanyl Citrate (Fentanyl 2ml Vial) 50 mcg PRN Q1HR PRN IV PAIN Last administered on 07/06/19at 23:36; Start 07/06/19 at 14:30; Stop 07/07/19 at 14:29; Status DC Prochlorperazine Edisylate (Compazine) 10 mg PRN TID PRN IV NAUSEA, 2nd CHOICE; Start 07/06/19 at 14:30; Stop 07/06/19 at 16:41; Status DC Sodium Chloride 1,000 ml @ 75 mls/hr 1X IV ; Start 07/06/19 at 14:30; Stop 07/07/19 at 16:26; Status DC Sodium Chloride (Normal Saline Flush) 3 ml QSHIFT PRN IV AFTER MEDS AND BLOOD DRAWS; Start 07/06/19 at 14:30 Sodium Chloride 1,000 ml @ 100 mls/hr Q10H IV Last administered on 07/06/19at 16:49; Start 07/06/19 at 14:25; Stop 07/08/19 at 13:38; Status DC Multivitamins 10 ml/Thiamine HCl 100 mg/Folic Acid 1 mg/Sodium Chloride 1,011.2 ml @ 125 mls/ hr 1X ONCE IV Last administered on 07/06/19at 15:25; Start 07/06/19 at 14:30; Stop 07/06/19 at 22:35; Status DC Ondansetron HCl (Zofran) 4 mg PRN Q4HRS PRN IV NAUSEA/VOMITING, 1st CHOICE Last administered on 07/08/19at 06:03; Start 07/06/19 at 14:30 Acetaminophen (Tylenol) 650 mg PRN Q4HRS PRN PO TEMP OVER 100.4F OR MILD PAIN; Start 07/06/19 at 14:30 Clonidine HCl (Catapres) 0.1 mg PRN Q6HRS PRN PO SBP>160 OR DBP>90; Start 07/06/19 at 14:30; Stop 07/08/19 at 16:52; Status DC Docusate Sodium (Colace) 100 mg PRN BID PRN PO CONSTIPATION; Start 07/06/19 at 14:30 Albuterol Sulfate (Ventolin Neb Soln) 2.5 mg PRN Q4HRS PRN NEB SHORTNESS OF BREATH; Start 07/06/19 at 14:30 Guaifenesin (Robitussin) 200 mg PRN Q4HRS PRN PO COUGH; Start 07/06/19 at 14:30 Lorazepam (Ativan) 0.5 mg PRN Q4HRS PRN PO ANXIETY / AGITATION Last administered on 07/09/19at 15:57; Start 07/06/19 at 14:30 Enoxaparin Sodium (Lovenox 40mg Syringe) 40 mg Q24H SQ ; Start 07/06/19 at 15:00 Pantoprazole Sodium (PROTONIX VIAL for IV PUSH) 40 mg DAILYAC IVP Last administered on 07/10/19at 08:30; Start 07/06/19 at 16:30 Prochlorperazine Edisylate (Compazine) 10 mg PRN Q4HRS PRN IV NAUSEA/VOMITING, 2ND CHOICE Last administered on 07/09/19at 21:38; Start 07/06/19 at 16:45 Insulin Human Lispro (HumaLOG) 0-5 UNITS TIDWMEALS SQ Last administered on 07/09/19at 12:22; Start 07/06/19 at 17:00 Dextrose (Dextrose 50%-Water Syringe) 12.5 gm PRN Q15MIN PRN IV SEE COMMENTS; Start 07/06/19 at 16:45 Insulin Human Isoph/Insulin Regular (HumuLIN 70/30) 10 units BID SQ Last administered on 07/09/19at 21:44; Start 07/06/19 at 21:00 Insulin Human Lispro (HumaLOG) 5 units 1X ONCE SQ Last administered on 07/06/19at 17:32; Start 07/06/19 at 17:30; Stop 07/06/19 at 17:31; Status DC Zolpidem Tartrate (Ambien) 5 mg PRN QHS PRN PO INSOMNIA; Start 07/07/19 at 19:00 Metronidazole (Flagyl) 500 mg Q12HR PO Last administered on 07/07/19at 21:34; Start 07/07/19 at 21:00; Stop 07/09/19 at 19:50; Status DC Ondansetron HCl (Zofran Odt) 4 mg PRN Q6HRS PRN PO NAUSEA/VOMITING Last administered on 07/08/19at 07:56; Start 07/08/19 at 07:30 Prochlorperazine (Compazine) 25 mg PRN Q12HR PRN [place] NAUSEA/VOMITING, 1ST CHOICE Last administered on 07/08/19at 10:09; Start 07/08/19 at 07:45 Promethazine HCl (Phenergan Supp) 25 mg PRN Q6HRS PRN MI NAUSEA/VOMITING, 2ND CHOICE Last administered on 07/08/19at 07:56; Start 07/08/19 at 07:45 Prochlorperazine Edisylate (Compazine) 10 mg PRN Q6HRS PRN IM NAUSEA/VOMITING Last administered on 07/09/19at 09:05; Start 07/08/19 at 13:45 Buspirone HCl (Buspar) 10 mg BID PO Last administered on 07/08/19at 21:39; Start 07/08/19 at 14:00 Multivitamins 10 ml/Thiamine HCl 100 mg/Folic Acid 1 mg/Sodium Chloride 1,011.2 ml @ 100 mls/ hr DAILY IV Last administered on 07/10/19at 08:34; Start 07/09/19 at 09:00; Stop 07/13/19 at 19:07 Multivitamins (Thera M Plus) 1 tab DAILY PO ; Start 07/09/19 at 09:00; Status UNV Folic Acid (Folic Acid) 1 mg DAILY PO ; Start 07/09/19 at 09:00; Status UNV Thiamine HCl 100 mg DAILY IM ; Start 07/09/19 at 09:00; Stop 07/14/19 at 08:59; Status UNV Lorazepam (Ativan) 4 mg PRN Q1HR PRN PO For CIWA 8-14; Start 07/08/19 at 13:45 Lorazepam (Ativan) 8 mg PRN Q1HR PRN PO For CIWA 15 or greater; Start 07/08/19 at 13:45 Lorazepam (Ativan Inj) 2 mg PRN Q1HR PRN IV For CIWA 8-14; Start 07/08/19 at 13:45 Lorazepam (Ativan Inj) 4 mg PRN Q1HR PRN IV For CIWA 15 or greater; Start 07/08/19 at 13:45 Diphenhydramine HCl (Benadryl) 25 mg PRN Q15MIN PRN IVP EPS symptoms 2'Haldol admin; Start 07/08/19 at 13:45 Clonidine HCl (Catapres) 0.1 mg PRN Q1HR PRN PO SBP > 180 or DBP > 100, MRX3; Start 07/08/19 at 13:45 Lorazepam (Ativan Inj) 2 mg PRN Q15MIN PRN IV SEE COMMENTS; Start 07/08/19 at 13:45; Status UNV Lorazepam (Ativan Inj) 4 mg PRN Q15MIN PRN IV SEE COMMENTS; Start 07/08/19 at 13:45; Status UNV Potassium Chloride (Klor-Con) 40 meq 1X ONCE PO ; Start 07/08/19 at 13:45; Stop 07/08/19 at 13:51; Status DC Potassium Chloride (Klor-Con) 20 meq DAILYWBKFT PO Last administered on 07/10/19at 08:30; Start 07/09/19 at 08:00 Sodium Chloride 1,000 ml @ 100 mls/hr Q10H IV ; Start 07/08/19 at 13:45 Multivitamins 10 ml/Thiamine HCl 100 mg/Folic Acid 1 mg/Sodium Chloride 1,011.2 ml @ 1,000.088 mls/hr 1X ONCE IV ; Start 07/08/19 at 14:30; Stop 07/08/19 at 15:30; Status DC Metronidazole (Metrogel) 1 simona QHS VG Last administered on 07/08/19at 21:39; Start 07/08/19 at 21:00; Stop 07/12/19 at 20:59 Hydromorphone HCl (Dilaudid) 0.5 mg PRN Q4HRS ONCE IV Last administered on 07/08/19at 17:04; Start 07/08/19 at 17:00; Stop 07/08/19 at 17:01; Status DC Hydromorphone HCl (Dilaudid) 0.5 mg PRN Q4HRS PRN IV PAIN Last administered on 07/09/19at 21:38; Start 07/08/19 at 18:30 Active Scripts Active Reported Humulin N (Nph, Human Insulin Isophane) 100 Unit/1 Ml Vial 10 Unit SQ BID Vitals/I & O Vital Sign - Last 24 Hours 07/09/19 07/09/19 07/09/19 07/09/19 11:00 15:00 16:27 19:00 Temp 98.6 98.2 98.7 98.6 98.2 98.7 Pulse 91 90 88 Resp 18 18 18 B/P (MAP) 136/88 (104) 115/74 (88) 117/85 (96) Pulse Ox 99 98 98 100 O2 Delivery Room Air Room Air Room Air High Flow Nasal Cannula 07/09/19 07/10/19 07/10/19 23:00 03:00 07:00 Temp 99.2 98.1 98.1 99.2 98.1 98.1 Pulse 93 85 97 Resp 16 16 17 B/P (MAP) 106/64 (78) 110/70 (83) 107/76 (86) Pulse Ox 98 100 98 O2 Delivery Room Air Room Air Intake and Output 07/09/19 07/09/19 07/10/19 15:00 23:00 07:00 Intake Total 720 ml 0 ml Output Total 700 ml 400 ml Balance 20 ml -400 ml SHELLEY WATERS MD Jul 10, 2019 08:41
[2019-07-10 10:08] LABS: ALBUMIN 2.8 g/dL (3.4-5.0); ALBUMIN/GLOBULIN RATIO 0.8 (1.0-1.7); CALCIUM 8.3 mg/dL (8.5-10.1); CREATININE 0.7 mg/dL (0.6-1.0); GFR 119.7; POTASSIUM 3.6 mmol/L (3.5-5.1); TOTAL BILIRUBIN 0.6 mg/dL (0.2-1.0); TOTAL PROTEIN 6.1 g/dL (6.4-8.2)
[2019-07-10] MEDS: busPIRone 10 MG TABLET. PO SCH ×2 (10:08→21:20)
[2019-07-10] MEDS: INSULIN NPH/REG INSULIN 70/30 300 UNITS/3 ML INSULN.PEN. SQ SCH ×2 (10:11→21:31)
[2019-07-10 10:25] LABS: BASO # 0.1 x10^3/uL (0.0-0.2); BASO % 1 % (0-3); EOS # 0.1 x10^3/uL (0.0-0.7); EOS % 1 % (0-3); HEMATOCRIT 32.6 % (36.0-47.0); HEMOGLOBIN 10.8 g/dL (12.0-15.5); LYMPH # 1.8 x10^3/uL (1.0-4.8); LYMPH % 19 % (24-48); MEAN CORPUSCULAR HEMOGLOBIN 28 pg (25-35); MEAN CORPUSCULAR HGB CONC 33 g/dL (31-37); MEAN CORPUSCULAR VOLUME 85 fL (79-100); MONO # 0.7 x10^3/uL (0.0-1.1); MONO % 7 % (0-9); NEUT # 6.9 x10^3/uL (1.8-7.7); NEUT % 72 % (31-73); PLATELET COUNT 277 x10^3/uL (140-400); RED BLOOD COUNT 3.82 x10^6/uL (3.50-5.40); WHITE BLOOD COUNT 9.6 x10^3/uL (4.0-11.0)
[2019-07-10 11:00] VITALS: BP 113/73
--- NOTE | 2019-07-10 11:24 | PDOC ---
Subjective: Subjective: Doesn't offer much - denies abd pain, denies vomiting. Objective: Vital Signs: Vital Signs Date Time Temp Pulse Resp B/P (MAP) Pulse Ox O2 Delivery O2 Flow Rate FiO2 07/10/19 07:00 98.1 97 17 107/76 (86) 98 Room Air 98.1 Labs: Laboratory Tests Test 07/09/19 16:11 07/09/19 20:58 07/10/19 07:18 07/10/19 09:05 Glucose (Fingerstick) 95 mg/dL 246 mg/dL 158 mg/dL 270 mg/dL Test 07/10/19 09:30 White Blood Count 9.6 x10^3/uL Red Blood Count 3.82 x10^6/uL Hemoglobin 10.8 g/dL Hematocrit 32.6 % Mean Corpuscular Volume 85 fL Mean Corpuscular Hemoglobin 28 pg Mean Corpuscular Hemoglobin Concent 33 g/dL Red Cell Distribution Width 15.0 % Platelet Count 277 x10^3/uL Neutrophils (%) (Auto) 72 % Lymphocytes (%) (Auto) 19 % Monocytes (%) (Auto) 7 % Eosinophils (%) (Auto) 1 % Basophils (%) (Auto) 1 % Neutrophils # (Auto) 6.9 x10^3/uL Lymphocytes # (Auto) 1.8 x10^3/uL Monocytes # (Auto) 0.7 x10^3/uL Eosinophils # (Auto) 0.1 x10^3/uL Basophils # (Auto) 0.1 x10^3/uL Sodium Level 138 mmol/L Potassium Level 3.6 mmol/L Chloride Level 103 mmol/L Carbon Dioxide Level 25 mmol/L Anion Gap 10 Blood Urea Nitrogen 7 mg/dL Creatinine 0.7 mg/dL Estimated GFR (Cockcroft-Gault) 119.7 BUN/Creatinine Ratio 10 Glucose Level 265 mg/dL Calcium Level 8.3 mg/dL Total Bilirubin 0.6 mg/dL Aspartate Amino Transf (AST/SGOT) 16 U/L Alanine Aminotransferase (ALT/SGPT) 20 U/L Alkaline Phosphatase 55 U/L Total Protein 6.1 g/dL Albumin 2.8 g/dL Albumin/Globulin Ratio 0.8 Imaging: CT A/P 07/07 IMPRESSION: 1. No apparent acute abnormality. 2. The appendix is not clearly identified. No inflammatory changes in the right lower quadrant. PE: GEN: NAD - sleeping on stomach - difficult to rouse NEURO/PSYCH: A & O 3 A/P: Uncontrolled DM - A1c 10.4 Chronic n/v and abd pain - suspect gastroparesis -- PO PPI, DC per primary. Suspect GI issues w/ improve w/ better control of DM. TY JULIAN Jul 10, 2019 11:24
[2019-07-10] MEDS: cefTRIAXone IV Push 1 GM VIAL. IVP SCH (11:48)
[2019-07-10] MEDS: HYDROmorphone 2 MG/ML VIAL IV PRN (12:38)
[2019-07-10] MEDS: PROCHLORPERAZINE 10 MG/2 ML VIAL. IV PRN (12:40)
[2019-07-10] MEDS: ENOXAPARIN 40 MG/0.4 ML SYRINGE. SQ SCH (14:11)
[2019-07-10 14:28] LABS: BILIRUBIN,URINE NEGATIVE (NEG); CLARITY,URINE CLEAR; COLOR,URINE YELLOW; NITRITE,URINE NEGATIVE (NEG); PH,URINE 6.5; PROTEIN,URINE NEGATIVE (NEG-TRACE)
[2019-07-10 14:40] LABS: AMORPHOUS SEDIMENT,UR PRESENT /HPF; BACTERIA,URINE 0 /HPF (0-FEW); RBC,URINE 0 /HPF (0-2); SQUAMOUS EPITHELIAL CELL,UR OCC /LPF
[2019-07-10 15:00] VITALS: BP 137/86
[2019-07-10 19:00] VITALS: BP 121/80
[2019-07-10] MEDS: metroNIDAZOLE 0.75% VAGINAL 1 APP TUBE VG SCH (21:21)
[2019-07-10 23:00] VITALS: BP 119/85
[2019-07-11] MEDS: IV NORMAL SALINE 1000ML BAG 1,000 ML IV SCH ×3 (02:01→21:58)
[2019-07-11 03:00] VITALS: BP 119/87
[2019-07-11 07:00] VITALS: BP 135/87
[2019-07-11] MEDS ORDERED: PANTOPRAZOLE 40 MG TABLET.DR. PO SCH (07:30)
[2019-07-11] MEDS: POTASSIUM CHLORIDE 20 MEQ TABLET.ER. PO SCH (08:00)
[2019-07-11] MEDS: INSULIN LISPRO 300 UNITS/3 ML VIAL. SQ SCH ×3 (08:00→17:00)
[2019-07-11] MEDS: HYDROmorphone 2 MG/ML VIAL IV PRN (08:17)
[2019-07-11] MEDS: ONDANSETRON PF 4 MG/2 ML VIAL. IV PRN (08:18)
[2019-07-11] MEDS: MULTIVIT INFUSN,ADULT 4,VIT K 10 ML, THIAMINE INJ 100 MG, FOLIC ACID INJ 1 MG in IV NOR... IV SCH (08:19)
[2019-07-11] MEDS: INSULIN NPH/REG INSULIN 70/30 300 UNITS/3 ML INSULN.PEN. SQ SCH ×2 (08:27→22:03)
--- NOTE | 2019-07-11 08:29 | PDOC ---
PROGRESS NOTES History of Present Illness History of Present Illness Assessment/Plan Assessment/Plan IMPRESSION 1. INTRACTABLE NAUSEA, VOMITING, slow to resolve on ct exam, Solid abdominal viscera not well evaluated in the absence of contrast material. No apparent attenuation abnormality of the liver or spleen. Pancreas, adrenal glands and kidneys are unremarkable. No hydronephrosis. No calcific renal stone. The gallbladder is not identified and may be collapsed or surgically absent. There is some focal fat near the falciform ligament.Unopacified GI tract normal in caliber and contour. No focal bowel wall thickening. No inflammatory stranding in the mesentery. The appendix is not clearly identified 2. THC ABUSE 3. DEHYDRATION 4. DIABETES .///poorly controlled// gastroparesis. Medical therapy for symptom control. US assess for GB disease 5. leukocytosis without fever 6. DEHYDRATION 07-11 HAD ONE EPISODE OF EMESIS THIS am, mod pain noted PLAN ADMIT IV FLUID SUPPORT, cont ACCUCHECKS SS INSULIN DVT PROPHYLAXIS GI CONSULT emperic iv rocephin 07/08 pt states she cannot keep anything down by mouth today, iv out, will restart banana bag, CIWA protocol, very anxious d/w faily in room 07/09 pt wants to leave ama, changed her mind, agrees to MIDLINE IV d/w mother in room 07/10 Did not eat much breakfast, seems depressed 07-11. emesis this AM X 1 26 MIN PT EXAM, CHART REVIEW, > 50% OF TIME SPENT WITH EXAM, CHART REVIEW, PT CARE COORDINATION ADAT. Vitals Vitals Vital Signs Date Time Temp Pulse Resp B/P (MAP) Pulse Ox O2 Delivery O2 Flow Rate FiO2 07/11/19 08:17 100 Room Air 07/11/19 07:00 98.3 83 16 135/87 (103) 98.3 Physical Exam General: Alert, Oriented X3, Cooperative, No acute distress Heart: Regular rate, Normal S1, No murmurs Lungs: Clear Abdomen: Normal bowel sounds, Soft, No tenderness, No hepatosplenomegaly Extremities: No cyanosis, No edema Skin: No significant lesion Labs LABS PATIENT: MANDA EDWARDS ACCT: [id number] LOC: [address] [place] [address] U: [id number] AGE/SX: 28/F ROOM: [facility] RE07/06/[address]: SHELLEY WATERS MD : 1990 BED: 1 DIS: STATUS: ADM IN TLOC: SPEC #: [id number] HEYDI: 07/08/19 STATUS: RES REQ #: [id number] RECD: 07/08/19-[address]: SHELLEY WATERS MD SOURCE: BLOOD ENTR: 07/08/19-[address]: CAROLYN ABDI SPDESC: MANUEL KHAN MD ORDERED: BCULT Procedure Result BLOOD CULTURE Preliminary NO GROWTH AFTER 2 DAYS Laboratory Tests Test 07/10/19 09:05 07/10/19 09:30 07/10/19 11:20 07/10/19 12:39 Glucose (Fingerstick) 270 mg/dL (70-99) 244 mg/dL (70-99) White Blood Count 9.6 x10^3/uL (4.0-11.0) Red Blood Count 3.82 x10^6/uL (3.50-5.40) Hemoglobin 10.8 g/dL (12.0-15.5) Hematocrit 32.6 % (36.0-47.0) Mean Corpuscular Volume 85 fL (79-100) Mean Corpuscular Hemoglobin 28 pg (25-35) Mean Corpuscular Hemoglobin Concent 33 g/dL (31-37) Red Cell Distribution Width 15.0 % (11.5-14.5) Platelet Count 277 x10^3/uL (140-400) Neutrophils (%) (Auto) 72 % (31-73) Lymphocytes (%) (Auto) 19 % (24-48) Monocytes (%) (Auto) 7 % (0-9) Eosinophils (%) (Auto) 1 % (0-3) Basophils (%) (Auto) 1 % (0-3) Neutrophils # (Auto) 6.9 x10^3/uL (1.8-7.7) Lymphocytes # (Auto) 1.8 x10^3/uL (1.0-4.8) Monocytes # (Auto) 0.7 x10^3/uL (0.0-1.1) Eosinophils # (Auto) 0.1 x10^3/uL (0.0-0.7) Basophils # (Auto) 0.1 x10^3/uL (0.0-0.2) Sodium Level 138 mmol/L (136-145) Potassium Level 3.6 mmol/L (3.5-5.1) Chloride Level 103 mmol/L (98-107) Carbon Dioxide Level 25 mmol/L (21-32) Anion Gap 10 (6-14) Blood Urea Nitrogen 7 mg/dL (7-20) Creatinine 0.7 mg/dL (0.6-1.0) Estimated GFR (Cockcroft-Gault) 119.7 BUN/Creatinine Ratio 10 (6-20) Glucose Level 265 mg/dL (70-99) Calcium Level 8.3 mg/dL (8.5-10.1) Total Bilirubin 0.6 mg/dL (0.2-1.0) Aspartate Amino Transf (AST/SGOT) 16 U/L (15-37) Alanine Aminotransferase (ALT/SGPT) 20 U/L (14-59) Alkaline Phosphatase 55 U/L (46-116) Total Protein 6.1 g/dL (6.4-8.2) Albumin 2.8 g/dL (3.4-5.0) Albumin/Globulin Ratio 0.8 (1.0-1.7) Urine Color Yellow Urine Clarity Clear Urine pH 6.5 Urine Specific [place] >=1.030 Urine Protein Negative mg/dL (NEG-TRACE) Urine Glucose (UA) >=1000 mg/dL (NEG) Urine Ketones (Stick) >=80 mg/dL (NEG) Urine Blood Negative (NEG) Urine Nitrite Negative (NEG) Urine Bilirubin Negative (NEG) Urine Urobilinogen Dipstick 1.0 mg/dL (0.2 mg/dL) Urine Leukocyte Esterase Moderate (NEG) Urine RBC 0 /HPF (0-2) Urine WBC 5-10 /HPF (0-4) Urine Squamous Epithelial Cells Occ /LPF Urine Amorphous Sediment Present /HPF Urine Bacteria 0 /HPF (0-FEW) Urine Mucus Mod /LPF Test 07/10/19 16:49 07/10/19 21:19 07/11/19 07:21 Glucose (Fingerstick) 122 mg/dL (70-99) 212 mg/dL (70-99) 105 mg/dL (70-99) Assessment and Plan Assessmemt and Plan Problems Medical Problems: (1) Hyperglycemia Status: Acute (2) Nausea and vomiting Status: Acute (3) Trichomonas vaginitis Status: Acute Comment Review of Relevant I have reviewed the following items yoanna (where applicable) has been applied. Labs Laboratory Tests Test 07/09/19 11:00 07/09/19 16:11 07/09/19 20:58 07/10/19 07:18 Glucose (Fingerstick) 212 mg/dL (70-99) 95 mg/dL (70-99) 246 mg/dL (70-99) 158 mg/dL (70-99) Test 07/10/19 09:05 07/10/19 09:30 07/10/19 11:20 07/10/19 12:39 Glucose (Fingerstick) 270 mg/dL (70-99) 244 mg/dL (70-99) White Blood Count 9.6 x10^3/uL (4.0-11.0) Red Blood Count 3.82 x10^6/uL (3.50-5.40) Hemoglobin 10.8 g/dL (12.0-15.5) Hematocrit 32.6 % (36.0-47.0) Mean Corpuscular Volume 85 fL (79-100) Mean Corpuscular Hemoglobin 28 pg (25-35) Mean Corpuscular Hemoglobin Concent 33 g/dL (31-37) Red Cell Distribution Width 15.0 % (11.5-14.5) Platelet Count 277 x10^3/uL (140-400) Neutrophils (%) (Auto) 72 % (31-73) Lymphocytes (%) (Auto) 19 % (24-48) Monocytes (%) (Auto) 7 % (0-9) Eosinophils (%) (Auto) 1 % (0-3) Basophils (%) (Auto) 1 % (0-3) Neutrophils # (Auto) 6.9 x10^3/uL (1.8-7.7) Lymphocytes # (Auto) 1.8 x10^3/uL (1.0-4.8) Monocytes # (Auto) 0.7 x10^3/uL (0.0-1.1) Eosinophils # (Auto) 0.1 x10^3/uL (0.0-0.7) Basophils # (Auto) 0.1 x10^3/uL (0.0-0.2) Sodium Level 138 mmol/L (136-145) Potassium Level 3.6 mmol/L (3.5-5.1) Chloride Level 103 mmol/L (98-107) Carbon Dioxide Level 25 mmol/L (21-32) Anion Gap 10 (6-14) Blood Urea Nitrogen 7 mg/dL (7-20) Creatinine 0.7 mg/dL (0.6-1.0) Estimated GFR (Cockcroft-Gault) 119.7 BUN/Creatinine Ratio 10 (6-20) Glucose Level 265 mg/dL (70-99) Calcium Level 8.3 mg/dL (8.5-10.1) Total Bilirubin 0.6 mg/dL (0.2-1.0) Aspartate Amino Transf (AST/SGOT) 16 U/L (15-37) Alanine Aminotransferase (ALT/SGPT) 20 U/L (14-59) Alkaline Phosphatase 55 U/L (46-116) Total Protein 6.1 g/dL (6.4-8.2) Albumin 2.8 g/dL (3.4-5.0) Albumin/Globulin Ratio 0.8 (1.0-1.7) Urine Color Yellow Urine Clarity Clear Urine pH 6.5 Urine Specific [place] >=1.030 Urine Protein Negative mg/dL (NEG-TRACE) Urine Glucose (UA) >=1000 mg/dL (NEG) Urine Ketones (Stick) >=80 mg/dL (NEG) Urine Blood Negative (NEG) Urine Nitrite Negative (NEG) Urine Bilirubin Negative (NEG) Urine Urobilinogen Dipstick 1.0 mg/dL (0.2 mg/dL) Urine Leukocyte Esterase Moderate (NEG) Urine RBC 0 /HPF (0-2) Urine WBC 5-10 /HPF (0-4) Urine Squamous Epithelial Cells Occ /LPF Urine Amorphous Sediment Present /HPF Urine Bacteria 0 /HPF (0-FEW) Urine Mucus Mod /LPF Test 07/10/19 16:49 07/10/19 21:19 07/11/19 07:21 Glucose (Fingerstick) 122 mg/dL (70-99) 212 mg/dL (70-99) 105 mg/dL (70-99) Laboratory Tests Test 07/10/19 09:05 07/10/19 09:30 07/10/19 11:20 07/10/19 12:39 Glucose (Fingerstick) 270 mg/dL (70-99) 244 mg/dL (70-99) White Blood Count 9.6 x10^3/uL (4.0-11.0) Red Blood Count 3.82 x10^6/uL (3.50-5.40) Hemoglobin 10.8 g/dL (12.0-15.5) Hematocrit 32.6 % (36.0-47.0) Mean Corpuscular Volume 85 fL (79-100) Mean Corpuscular Hemoglobin 28 pg (25-35) Mean Corpuscular Hemoglobin Concent 33 g/dL (31-37) Red Cell Distribution Width 15.0 % (11.5-14.5) Platelet Count 277 x10^3/uL (140-400) Neutrophils (%) (Auto) 72 % (31-73) Lymphocytes (%) (Auto) 19 % (24-48) Monocytes (%) (Auto) 7 % (0-9) Eosinophils (%) (Auto) 1 % (0-3) Basophils (%) (Auto) 1 % (0-3) Neutrophils # (Auto) 6.9 x10^3/uL (1.8-7.7) Lymphocytes # (Auto) 1.8 x10^3/uL (1.0-4.8) Monocytes # (Auto) 0.7 x10^3/uL (0.0-1.1) Eosinophils # (Auto) 0.1 x10^3/uL (0.0-0.7) Basophils # (Auto) 0.1 x10^3/uL (0.0-0.2) Sodium Level 138 mmol/L (136-145) Potassium Level 3.6 mmol/L (3.5-5.1) Chloride Level 103 mmol/L (98-107) Carbon Dioxide Level 25 mmol/L (21-32) Anion Gap 10 (6-14) Blood Urea Nitrogen 7 mg/dL (7-20) Creatinine 0.7 mg/dL (0.6-1.0) Estimated GFR (Cockcroft-Gault) 119.7 BUN/Creatinine Ratio 10 (6-20) Glucose Level 265 mg/dL (70-99) Calcium Level 8.3 mg/dL (8.5-10.1) Total Bilirubin 0.6 mg/dL (0.2-1.0) Aspartate Amino Transf (AST/SGOT) 16 U/L (15-37) Alanine Aminotransferase (ALT/SGPT) 20 U/L (14-59) Alkaline Phosphatase 55 U/L (46-116) Total Protein 6.1 g/dL (6.4-8.2) Albumin 2.8 g/dL (3.4-5.0) Albumin/Globulin Ratio 0.8 (1.0-1.7) Urine Color Yellow Urine Clarity Clear Urine pH 6.5 Urine Specific [place] >=1.030 Urine Protein Negative mg/dL (NEG-TRACE) Urine Glucose (UA) >=1000 mg/dL (NEG) Urine Ketones (Stick) >=80 mg/dL (NEG) Urine Blood Negative (NEG) Urine Nitrite Negative (NEG) Urine Bilirubin Negative (NEG) Urine Urobilinogen Dipstick 1.0 mg/dL (0.2 mg/dL) Urine Leukocyte Esterase Moderate (NEG) Urine RBC 0 /HPF (0-2) Urine WBC 5-10 /HPF (0-4) Urine Squamous Epithelial Cells Occ /LPF Urine Amorphous Sediment Present /HPF Urine Bacteria 0 /HPF (0-FEW) Urine Mucus Mod /LPF Test 07/10/19 16:49 07/10/19 21:19 07/11/19 07:21 Glucose (Fingerstick) 122 mg/dL (70-99) 212 mg/dL (70-99) 105 mg/dL (70-99) Microbiology 07/08/19 Blood Culture - Preliminary, Resulted NO GROWTH AFTER 2 DAYS Medications Current Medications Sodium Chloride 1,000 ml @ 1,000 mls/hr 1X ONCE IV Last administered on 07/06/19at 10:14; Start 07/06/19 at 10:15; Stop 07/06/19 at 11:14; Status DC Famotidine (Pepcid Vial) 20 mg 1X ONCE IVP Last administered on 07/06/19at 10:17; Start 07/06/19 at 10:15; Stop 07/06/19 at 10:16; Status DC Ondansetron HCl (Zofran) 4 mg 1X ONCE IV Last administered on 07/06/19at 10:15; Start 07/06/19 at 10:15; Stop 07/06/19 at 10:16; Status DC Haloperidol Lactate (Haldol Inj) 5 mg 1X ONCE IVP Last administered on 07/06/19at 11:36; Start 07/06/19 at 11:15; Stop 07/06/19 at 11:16; Status DC Prochlorperazine Edisylate (Compazine) 10 mg 1X ONCE IV Last administered on 07/06/19at 11:33; Start 07/06/19 at 11:15; Stop 07/06/19 at 11:16; Status DC Insulin Human Regular (HumuLIN R VIAL) 5 unit 1X ONCE IV Last administered on 07/06/19at 11:42; Start 07/06/19 at 11:30; Stop 07/06/19 at 11:31; Status DC Sodium Chloride 1,000 ml @ 125 mls/hr 1X ONCE IV Last administered on 07/06/19at 11:39; Start 07/06/19 at 11:30; Stop 07/06/19 at 19:29; Status DC Metoclopramide HCl (Reglan Vial) 10 mg 1X ONCE IV Last administered on 07/06/19at 13:47; Start 07/06/19 at 14:00; Stop 07/06/19 at 14:01; Status DC Azithromycin (Zithromax) 1,000 mg 1X ONCE PO ; Start 07/06/19 at 14:15; Stop 07/06/19 at 14:16; Status Cancel Metronidazole (Flagyl) 2,000 mg 1X ONCE PO ; Start 07/06/19 at 14:15; Stop 07/06/19 at 14:16; Status Cancel Promethazine HCl (Phenergan Supp) 25 mg 1X ONCE NV ; Start 07/06/19 at 14:15; Stop 07/06/19 at 14:16; Status DC Metronidazole 100 ml @ 100 mls/hr 1X ONCE IV Last administered on 07/06/19at 15:45; Start 07/06/19 at 14:30; Stop 07/06/19 at 15:29; Status DC Azithromycin 250 ml @ 250 mls/hr 1X ONCE IV Last administered on 07/06/19at 17:25; Start 07/06/19 at 14:30; Stop 07/06/19 at 15:29; Status DC Ondansetron HCl (Zofran) 4 mg PRN Q8HRS PRN IV NAUSEA/VOMITING; Start 07/06/19 at 14:30; Stop 07/07/19 at 14:29; Status UNV Fentanyl Citrate (Fentanyl 2ml Vial) 50 mcg PRN Q1HR PRN IV PAIN Last administered on 07/06/19at 23:36; Start 07/06/19 at 14:30; Stop 07/07/19 at 14:29; Status DC Prochlorperazine Edisylate (Compazine) 10 mg PRN TID PRN IV NAUSEA, 2nd CHOICE; Start 07/06/19 at 14:30; Stop 07/06/19 at 16:41; Status DC Sodium Chloride 1,000 ml @ 75 mls/hr 1X IV ; Start 07/06/19 at 14:30; Stop 07/07/19 at 16:26; Status DC Sodium Chloride (Normal Saline Flush) 3 ml QSHIFT PRN IV AFTER MEDS AND BLOOD DRAWS; Start 07/06/19 at 14:30 Sodium Chloride 1,000 ml @ 100 mls/hr Q10H IV Last administered on 07/06/19at 16:49; Start 07/06/19 at 14:25; Stop 07/08/19 at 13:38; Status DC Multivitamins 10 ml/Thiamine HCl 100 mg/Folic Acid 1 mg/Sodium Chloride 1,011.2 ml @ 125 mls/ hr 1X ONCE IV Last administered on 07/06/19at 15:25; Start 07/06/19 at 14:30; Stop 07/06/19 at 22:35; Status DC Ondansetron HCl (Zofran) 4 mg PRN Q4HRS PRN IV NAUSEA/VOMITING, 1st CHOICE Last administered on 07/11/19at 08:18; Start 07/06/19 at 14:30 Acetaminophen (Tylenol) 650 mg PRN Q4HRS PRN PO TEMP OVER 100.4F OR MILD PAIN; Start 07/06/19 at 14:30 Clonidine HCl (Catapres) 0.1 mg PRN Q6HRS PRN PO SBP>160 OR DBP>90; Start 07/06/19 at 14:30; Stop 07/08/19 at 16:52; Status DC Docusate Sodium (Colace) 100 mg PRN BID PRN PO CONSTIPATION; Start 07/06/19 at 14:30 Albuterol Sulfate (Ventolin Neb Soln) 2.5 mg PRN Q4HRS PRN NEB SHORTNESS OF BREATH; Start 07/06/19 at 14:30 Guaifenesin (Robitussin) 200 mg PRN Q4HRS PRN PO COUGH; Start 07/06/19 at 14:30 Lorazepam (Ativan) 0.5 mg PRN Q4HRS PRN PO ANXIETY / AGITATION Last administered on 07/09/19at 15:57; Start 07/06/19 at 14:30 Enoxaparin Sodium (Lovenox 40mg Syringe) 40 mg Q24H SQ ; Start 07/06/19 at 15:00 Pantoprazole Sodium (PROTONIX VIAL for IV PUSH) 40 mg DAILYAC IVP Last administered on 07/10/19 08:30; Start 07/06/19 at 16:30; Stop 07/10/19 at 11:23; Status DC Prochlorperazine Edisylate (Compazine) 10 mg PRN Q4HRS PRN IV NAUSEA/VOMITING, 2ND CHOICE Last administered on 07/10/19at 12:40; Start 07/06/19 at 16:45 Insulin Human Lispro (HumaLOG) 0-5 UNITS TIDWMEALS SQ Last administered on 07/09/19at 12:22; Start 07/06/19 at 17:00 Dextrose (Dextrose 50%-Water Syringe) 12.5 gm PRN Q15MIN PRN IV SEE COMMENTS; Start 07/06/19 at 16:45 Insulin Human Isoph/Insulin Regular (HumuLIN 70/30) 10 units BID SQ Last administered on 07/11/19at 08:27; Start 07/06/19 at 21:00 Insulin Human Lispro (HumaLOG) 5 units 1X ONCE SQ Last administered on 07/06/19at 17:32; Start 07/06/19 at 17:30; Stop 07/06/19 at 17:31; Status DC Zolpidem Tartrate (Ambien) 5 mg PRN QHS PRN PO INSOMNIA; Start 07/07/19 at 19:00 Metronidazole (Flagyl) 500 mg Q12HR PO Last administered on 07/07/19at 21:34; Start 07/07/19 at 21:00; Stop 07/09/19 at 19:50; Status DC Ondansetron HCl (Zofran Odt) 4 mg PRN Q6HRS PRN PO NAUSEA/VOMITING Last administered on 07/08/19at 07:56; Start 07/08/19 at 07:30 Prochlorperazine (Compazine) 25 mg PRN Q12HR PRN NV NAUSEA/VOMITING, 1ST CHOICE Last administered on 07/08/19at 10:09; Start 07/08/19 at 07:45 Promethazine HCl (Phenergan Supp) 25 mg PRN Q6HRS PRN NV NAUSEA/VOMITING, 2ND CHOICE Last administered on 07/08/19at 07:56; Start 07/08/19 at 07:45 Prochlorperazine Edisylate (Compazine) 10 mg PRN Q6HRS PRN IM NAUSEA/VOMITING Last administered on 07/09/19at 09:05; Start 07/08/19 at 13:45 Buspirone HCl (Buspar) 10 mg BID PO Last administered on 07/10/19at 21:20; Start 07/08/19 at 14:00 Multivitamins 10 ml/Thiamine HCl 100 mg/Folic Acid 1 mg/Sodium Chloride 1,011.2 ml @ 100 mls/ hr DAILY IV Last administered on 07/11/19at 08:19; Start 07/09/19 at 09:00; Stop 07/13/19 at 19:07 Multivitamins (Thera M Plus) 1 tab DAILY PO ; Start 07/09/19 at 09:00; Status UNV Folic Acid (Folic Acid) 1 mg DAILY PO ; Start 07/09/19 at 09:00; Status UNV Thiamine HCl 100 mg DAILY IM ; Start 07/09/19 at 09:00; Stop 07/14/19 at 08:59; Status UNV Lorazepam (Ativan) 4 mg PRN Q1HR PRN PO For CIWA 8-14; Start 07/08/19 at 13:45 Lorazepam (Ativan) 8 mg PRN Q1HR PRN PO For CIWA 15 or greater; Start 07/08/19 at 13:45 Lorazepam (Ativan Inj) 2 mg PRN Q1HR PRN IV For CIWA 8-14; Start 07/08/19 at 13:45 Lorazepam (Ativan Inj) 4 mg PRN Q1HR PRN IV For CIWA 15 or greater; Start 07/08/19 at 13:45 Diphenhydramine HCl (Benadryl) 25 mg PRN Q15MIN PRN IVP EPS symptoms 2'Haldol admin; Start 07/08/19 at 13:45 Clonidine HCl (Catapres) 0.1 mg PRN Q1HR PRN PO SBP > 180 or DBP > 100, MRX3; Start 07/08/19 at 13:45 Lorazepam (Ativan Inj) 2 mg PRN Q15MIN PRN IV SEE COMMENTS; Start 07/08/19 at 13:45; Status UNV Lorazepam (Ativan Inj) 4 mg PRN Q15MIN PRN IV SEE COMMENTS; Start 07/08/19 at 13:45; Status UNV Potassium Chloride (Klor-Con) 40 meq 1X ONCE PO ; Start 07/08/19 at 13:45; Stop 07/08/19 at 13:51; Status DC Potassium Chloride (Klor-Con) 20 meq DAILYWBKFT PO Last administered on 07/10/19at 08:30; Start 07/09/19 at 08:00 Sodium Chloride 1,000 ml @ 100 mls/hr Q10H IV Last administered on 07/11/19at 02:01; Start 07/08/19 at 13:45 Multivitamins 10 ml/Thiamine HCl 100 mg/Folic Acid 1 mg/Sodium Chloride 1,011.2 ml @ 1,000.088 mls/hr 1X ONCE IV ; Start 07/08/19 at 14:30; Stop 07/08/19 at 15:30; Status DC Metronidazole (Metrogel) 1 simona QHS VG Last administered on 07/10/19at 21:21; Start 07/08/19 at 21:00; Stop 07/12/19 at 20:59 Hydromorphone HCl (Dilaudid) 0.5 mg PRN Q4HRS ONCE IV Last administered on 07/08/19at 17:04; Start 07/08/19 at 17:00; Stop 07/08/19 at 17:01; Status DC Hydromorphone HCl (Dilaudid) 0.5 mg PRN Q4HRS PRN IV PAIN Last administered on 07/11/19at 08:17; Start 07/08/19 at 18:30 Ceftriaxone Sodium (Rocephin) 1 gm Q24H IVP Last administered on 07/10/19at 1 1:48; Start 07/10/19 at 11:00 Pantoprazole Sodium (Protonix) 40 mg DAILYAC PO ; Start 07/11/19 at 07:30 Active Scripts Active Reported Humulin N (Nph, Human Insulin Isophane) 100 Unit/1 Ml Vial 10 Unit SQ BID Vitals/I & O Vital Sign - Last 24 Hours 07/10/19 07/10/19 07/10/19 07/10/19 11:00 15:00 19:00 23:00 Temp 98.8 98.9 99.0 98.6 98.8 98.9 99.0 98.6 Pulse 90 86 86 79 Resp 17 18 18 18 B/P (MAP) 113/73 (86) 137/86 (103) 121/80 (94) 119/85 (96) Pulse Ox 99 99 100 100 O2 Delivery Room Air Room Air 07/11/19 07/11/19 07/11/19 03:00 07:00 08:17 Temp 98.2 98.3 98.2 98.3 Pulse 94 83 Resp 16 16 B/P (MAP) 119/87 (98) 135/87 (103) Pulse Ox 100 100 100 O2 Delivery Room Air Room Air Intake and Output 07/10/19 07/10/19 07/11/19 15:00 23:00 07:00 Intake Total 1891.2 ml 240 ml Output Total 1 ml Balance 1891.2 ml 240 ml -1 ml SHELLEY WATERS MD Jul 11, 2019 08:29
[2019-07-11] MEDS: PROCHLORPERAZINE 10 MG/2 ML VIAL. IV PRN (08:55)
[2019-07-11] MEDS: busPIRone 10 MG TABLET. PO SCH ×2 (09:00→21:58)
[2019-07-11] MEDS: cefTRIAXone IV Push 1 GM VIAL. IVP SCH (10:40)
[2019-07-11 11:00] VITALS: BP 135/91
--- NOTE | 2019-07-11 11:34 | PDOC ---
Subjective: Subjective: Vomiting - "clear and bile" this morning, can't eat. Also abd pain. Hasn't stooled. Objective: Objective: D/w nurse - worse today - vomiting, not able to eat/drink this morning except a couple sips - asks for pain meds (gets Dilaudid). Has Benadryl, Compazine, Phenergan ordered - also Ativan. Additional on Rocephin per Dr. Basurto. Vital Signs: Vital Signs Date Time Temp Pulse Resp B/P (MAP) Pulse Ox O2 Delivery O2 Flow Rate FiO2 07/11/19 09:35 100 Room Air 07/11/19 07:00 98.3 83 16 135/87 (103) 98.3 Labs: Laboratory Tests Test 07/10/19 12:39 07/10/19 16:49 07/10/19 21:19 07/11/19 07:21 Urine Color Yellow Urine Clarity Clear Urine pH 6.5 Urine Specific [place] >=1.030 Urine Protein Negative mg/dL Urine Glucose (UA) >=1000 mg/dL Urine Ketones (Stick) >=80 mg/dL Urine Blood Negative Urine Nitrite Negative Urine Bilirubin Negative Urine Urobilinogen Dipstick 1.0 mg/dL Urine Leukocyte Esterase Moderate Urine RBC 0 /HPF Urine WBC 5-10 /HPF Urine Squamous Epithelial Cells Occ /LPF Urine Amorphous Sediment Present /HPF Urine Bacteria 0 /HPF Urine Mucus Mod /LPF Glucose (Fingerstick) 122 mg/dL 212 mg/dL 105 mg/dL BLOOD CULTURE Preliminary NO GROWTH AFTER 2 DAYS Imaging: Unrevealing AAS, US, and CT A/P during admission except contracted GB and appendix not clearly identified. PE: GEN: curled up in a ball in bed, was asleep LUNGS: CTAB HEART: RRR ABD: soft, vaguely tender throughout - ?MSK NEURO/PSYCH: difficult to rouse per usual - was a bit easier than yesterday A/P: Uncontrolled DM Chronic n/v and abd pain - suspect gastroparesis +marijuana -- Worse today. Back to IV PPI, can recheck x-ray, back to clears for now. Will review additional recs w/ Dr. Byrnes - has not had formal GES (and doubt could tolerate now) - ?prokinetic ANISA-TY NASCIMENTO Jul 11, 2019 11:34
--- NOTE | 2019-07-11 13:21 | RAD ---
EXAM: Abdomen acute complete. HISTORY: Pain. COMPARISON: CT dated 07/07/2019. FINDINGS: A frontal view of the chest and frontal upright and supine views of the abdomen are obtained. There is no infiltrate, pleural effusion or pneumothorax. The heart is normal in size. There are prominent air-filled loops of small bowel within the midabdomen. There is gas and stool within the colon. There is no free air. IMPRESSION: 1. Nonspecific air-filled loops of small bowel within the midabdomen. No clear transition point is seen to suggest obstruction. 2. No acute pulmonary finding. Electronically signed by: Komal Pickard MD (07/11/2019 1:18 PM) [id number]
[2019-07-11 15:00] VITALS: BP 132/88
[2019-07-11] MEDS: ENOXAPARIN 40 MG/0.4 ML SYRINGE. SQ SCH (15:00)
[2019-07-11] MEDS: PANTOPRAZOLE IV PUSH 40 MG VIAL. IVP SCH (16:30)
[2019-07-11 19:00] VITALS: BP 115/78
[2019-07-11] MEDS: metroNIDAZOLE 0.75% VAGINAL 1 APP TUBE VG SCH (21:59)
[2019-07-11 23:00] VITALS: BP 141/94
[2019-07-12 03:00] VITALS: BP 111/79
[2019-07-12 05:42] LABS: BASO % 0 % (0-3); EOS # 0.2 x10^3/uL (0.0-0.7); EOS % 2 % (0-3); HEMATOCRIT 31.7 % (36.0-47.0); HEMOGLOBIN 10.6 g/dL (12.0-15.5); LYMPH # 2.9 x10^3/uL (1.0-4.8); LYMPH % 30 % (24-48); MEAN CORPUSCULAR HEMOGLOBIN 28 pg (25-35); MEAN CORPUSCULAR HGB CONC 33 g/dL (31-37); MEAN CORPUSCULAR VOLUME 84 fL (79-100); MONO % 10 % (0-9); NEUT # 5.8 x10^3/uL (1.8-7.7); NEUT % 58 % (31-73); PLATELET COUNT 266 x10^3/uL (140-400); RED BLOOD COUNT 3.76 x10^6/uL (3.50-5.40); RED CELL DISTRIBUTION WIDTH 14.6 % (11.5-14.5); WHITE BLOOD COUNT 9.9 x10^3/uL (4.0-11.0)
[2019-07-12 05:53] LABS: CREATININE 0.6 mg/dL (0.6-1.0)
[2019-07-12 06:05] LABS: POTASSIUM 2.8 mmol/L (3.5-5.1)
[2019-07-12] MEDS: POTASSIUM CHLORIDE 20 MEQ TABLET.ER. PO SCH (06:30)
[2019-07-12] MEDS ORDERED: POTASSIUM CHLORIDE 20 MEQ TABLET.ER. PO ONE ×3 (06:30→09:00)
[2019-07-12] MEDS: PANTOPRAZOLE IV PUSH 40 MG VIAL. IVP SCH (06:47)
[2019-07-12 07:00] VITALS: BP 124/85
[2019-07-12] MEDS ORDERED: SIMETHICONE/SOD BICARB/CITRIC ACID PACKET. PO ONE (07:45)
[2019-07-12] MEDS ORDERED: BARIUM SULFATE 340 GM SUSPENSION. PO ONE (07:45)
[2019-07-12] MEDS ORDERED: BARIUM SULFATE 60% 355 ML SUSP PO ONE (07:45)
[2019-07-12] MEDS: INSULIN LISPRO 300 UNITS/3 ML VIAL. SQ SCH ×2 (08:00→11:55)
--- NOTE | 2019-07-12 09:09 | PDOC ---
Objective: Objective: D/w nurse - pt reported was able to eat part of a sandwich yesterday. Vital Signs: Vital Signs Date Time Temp Pulse Resp B/P (MAP) Pulse Ox O2 Delivery O2 Flow Rate FiO2 07/12/19 07:00 97.3 78 18 124/85 (98) 96 Room Air 97.3 Labs: Laboratory Tests Test 07/11/19 12:22 07/11/19 17:03 07/11/19 21:23 07/12/19 07:39 Glucose (Fingerstick) 130 mg/dL (70-99) 99 mg/dL (70-99) 258 mg/dL (70-99) 120 mg/dL (70-99) BLOOD CULTURE Preliminary NO GROWTH AFTER 3 DAYS Imaging: AAS 07/11 IMPRESSION: 1. Nonspecific air-filled loops of small bowel within the midabdomen. No clear transition point is seen to suggest obstruction. 2. No acute pulmonary finding. PE: our of room A/P: Uncontrolled DM, suspected gastroparesis Chronic n/v and abd pain - improved +marijuana -- Better again. Out for UGI/SBS - await results - okay to ADAT when complete. Hopefully can wean off IV pain meds and look toward DC. Can change to PO PPI if reliably eating. TY JULIAN Jul 12, 2019 09:08
--- NOTE | 2019-07-12 09:34 | PDOC ---
PROGRESS NOTES History of Present Illness History of Present Illness discharge dx Assessment/Plan IMPRESSION 1. INTRACTABLE NAUSEA, VOMITING, slow to resolve on ct exam, Solid abdominal viscera not well evaluated in the absence of contrast material. No apparent attenuation abnormality of the liver or spleen. Pancreas, adrenal glands and kidneys are unremarkable. No hydronephrosis. No calcific renal stone. The gallbladder is not identified and may be collapsed or surgically absent. There is some focal fat near the falciform ligament.Unopacified GI tract normal in caliber and contour. No focal bowel wall thickening. No inflammatory stranding in the mesentery. The appendix is not clearly identified 2. THC ABUSE 3. DEHYDRATION 4. DIABETES .///poorly controlled// gastroparesis. Medical therapy for symptom control. US assess for GB disease 5. leukocytosis without fever 6. DEHYDRATION 07-11 HAD ONE EPISODE OF EMESIS THIS am, mod pain noted 07/12 better, eating wants to go home PLAN ADMIT IV FLUID SUPPORT, d/c ACCUCHECKS SS INSULIN DVT PROPHYLAXIS GI CONSULT emperic iv rocephin d/c 07/08 pt states she cannot keep anything down by mouth today, iv out, will restart banana bag, CIWA protocol, very anxious d/w faily in room 07/09 pt wants to leave ama, changed her mind, agrees to MIDLINE IV d/w mother in room 07/10 Did not eat much breakfast, seems depressed 07-11. emesis this AM X 1 35 MIN PT EXAM, CHART REVIEW, d/c planning time> 50% OF TIME SPENT WITH EXAM, CHART REVIEW, PT CARE COORDINATION ADAT. Vitals Vitals Vital Signs Date Time Temp Pulse Resp B/P (MAP) Pulse Ox O2 Delivery O2 Flow Rate FiO2 07/12/19 07:00 97.3 78 18 124/85 (98) 96 Room Air 97.3 Physical Exam General: Alert, Oriented X3, Cooperative, No acute distress Heart: Regular rate, Normal S1, No murmurs Lungs: Clear Abdomen: Normal bowel sounds, Soft, No tenderness, No hepatosplenomegaly Extremities: No cyanosis, No edema Skin: No significant lesion Labs LABS Laboratory Tests Test 07/11/19 12:22 07/11/19 17:03 07/11/19 21:23 07/12/19 05:20 Glucose (Fingerstick) 130 mg/dL (70-99) 99 mg/dL (70-99) 258 mg/dL (70-99) White Blood Count 9.9 x10^3/uL (4.0-11.0) Red Blood Count 3.76 x10^6/uL (3.50-5.40) Hemoglobin 10.6 g/dL (12.0-15.5) Hematocrit 31.7 % (36.0-47.0) Mean Corpuscular Volume 84 fL (79-100) Mean Corpuscular Hemoglobin 28 pg (25-35) Mean Corpuscular Hemoglobin Concent 33 g/dL (31-37) Red Cell Distribution Width 14.6 % (11.5-14.5) Platelet Count 266 x10^3/uL (140-400) Neutrophils (%) (Auto) 58 % (31-73) Lymphocytes (%) (Auto) 30 % (24-48) Monocytes (%) (Auto) 10 % (0-9) Eosinophils (%) (Auto) 2 % (0-3) Basophils (%) (Auto) 0 % (0-3) Neutrophils # (Auto) 5.8 x10^3/uL (1.8-7.7) Lymphocytes # (Auto) 2.9 x10^3/uL (1.0-4.8) Monocytes # (Auto) 1.0 x10^3/uL (0.0-1.1) Eosinophils # (Auto) 0.2 x10^3/uL (0.0-0.7) Basophils # (Auto) 0.0 x10^3/uL (0.0-0.2) Sodium Level 143 mmol/L (136-145) Potassium Level 2.8 mmol/L (3.5-5.1) Chloride Level 107 mmol/L (98-107) Carbon Dioxide Level 27 mmol/L (21-32) Anion Gap 9 (6-14) Blood Urea Nitrogen 1 mg/dL (7-20) Creatinine 0.6 mg/dL (0.6-1.0) Estimated GFR (Cockcroft-Gault) 143.0 Glucose Level 101 mg/dL (70-99) Calcium Level 8.0 mg/dL (8.5-10.1) Test 07/12/19 07:39 Glucose (Fingerstick) 120 mg/dL (70-99) Assessment and Plan Assessmemt and Plan Problems Medical Problems: (1) Hyperglycemia Status: Acute (2) Nausea and vomiting Status: Acute (3) Trichomonas vaginitis Status: Acute Comment Review of Relevant I have reviewed the following items yoanna (where applicable) has been applied. Labs Laboratory Tests Test 07/10/19 11:20 07/10/19 12:39 07/10/19 16:49 07/10/19 21:19 Glucose (Fingerstick) 244 mg/dL (70-99) 122 mg/dL (70-99) 212 mg/dL (70-99) Urine Color Yellow Urine Clarity Clear Urine pH 6.5 Urine Specific [place] >=1.030 Urine Protein Negative mg/dL (NEG-TRACE) Urine Glucose (UA) >=1000 mg/dL (NEG) Urine Ketones (Stick) >=80 mg/dL (NEG) Urine Blood Negative (NEG) Urine Nitrite Negative (NEG) Urine Bilirubin Negative (NEG) Urine Urobilinogen Dipstick 1.0 mg/dL (0.2 mg/dL) Urine Leukocyte Esterase Moderate (NEG) Urine RBC 0 /HPF (0-2) Urine WBC 5-10 /HPF (0-4) Urine Squamous Epithelial Cells Occ /LPF Urine Amorphous Sediment Present /HPF Urine Bacteria 0 /HPF (0-FEW) Urine Mucus Mod /LPF Test 07/11/19 07:21 07/11/19 12:22 07/11/19 17:03 07/11/19 21:23 Glucose (Fingerstick) 105 mg/dL (70-99) 130 mg/dL (70-99) 99 mg/dL (70-99) 258 mg/dL (70-99) Test 07/12/19 05:20 07/12/19 07:39 White Blood Count 9.9 x10^3/uL (4.0-11.0) Red Blood Count 3.76 x10^6/uL (3.50-5.40) Hemoglobin 10.6 g/dL (12.0-15.5) Hematocrit 31.7 % (36.0-47.0) Mean Corpuscular Volume 84 fL (79-100) Mean Corpuscular Hemoglobin 28 pg (25-35) Mean Corpuscular Hemoglobin Concent 33 g/dL (31-37) Red Cell Distribution Width 14.6 % (11.5-14.5) Platelet Count 266 x10^3/uL (140-400) Neutrophils (%) (Auto) 58 % (31-73) Lymphocytes (%) (Auto) 30 % (24-48) Monocytes (%) (Auto) 10 % (0-9) Eosinophils (%) (Auto) 2 % (0-3) Basophils (%) (Auto) 0 % (0-3) Neutrophils # (Auto) 5.8 x10^3/uL (1.8-7.7) Lymphocytes # (Auto) 2.9 x10^3/uL (1.0-4.8) Monocytes # (Auto) 1.0 x10^3/uL (0.0-1.1) Eosinophils # (Auto) 0.2 x10^3/uL (0.0-0.7) Basophils # (Auto) 0.0 x10^3/uL (0.0-0.2) Sodium Level 143 mmol/L (136-145) Potassium Level 2.8 mmol/L (3.5-5.1) Chloride Level 107 mmol/L (98-107) Carbon Dioxide Level 27 mmol/L (21-32) Anion Gap 9 (6-14) Blood Urea Nitrogen 1 mg/dL (7-20) Creatinine 0.6 mg/dL (0.6-1.0) Estimated GFR (Cockcroft-Gault) 143.0 Glucose Level 101 mg/dL (70-99) Calcium Level 8.0 mg/dL (8.5-10.1) Glucose (Fingerstick) 120 mg/dL (70-99) Laboratory Tests Test 07/11/19 12:22 07/11/19 17:03 07/11/19 21:23 07/12/19 05:20 Glucose (Fingerstick) 130 mg/dL (70-99) 99 mg/dL (70-99) 258 mg/dL (70-99) White Blood Count 9.9 x10^3/uL (4.0-11.0) Red Blood Count 3.76 x10^6/uL (3.50-5.40) Hemoglobin 10.6 g/dL (12.0-15.5) Hematocrit 31.7 % (36.0-47.0) Mean Corpuscular Volume 84 fL (79-100) Mean Corpuscular Hemoglobin 28 pg (25-35) Mean Corpuscular Hemoglobin Concent 33 g/dL (31-37) Red Cell Distribution Width 14.6 % (11.5-14.5) Platelet Count 266 x10^3/uL (140-400) Neutrophils (%) (Auto) 58 % (31-73) Lymphocytes (%) (Auto) 30 % (24-48) Monocytes (%) (Auto) 10 % (0-9) Eosinophils (%) (Auto) 2 % (0-3) Basophils (%) (Auto) 0 % (0-3) Neutrophils # (Auto) 5.8 x10^3/uL (1.8-7.7) Lymphocytes # (Auto) 2.9 x10^3/uL (1.0-4.8) Monocytes # (Auto) 1.0 x10^3/uL (0.0-1.1) Eosinophils # (Auto) 0.2 x10^3/uL (0.0-0.7) Basophils # (Auto) 0.0 x10^3/uL (0.0-0.2) Sodium Level 143 mmol/L (136-145) Potassium Level 2.8 mmol/L (3.5-5.1) Chloride Level 107 mmol/L (98-107) Carbon Dioxide Level 27 mmol/L (21-32) Anion Gap 9 (6-14) Blood Urea Nitrogen 1 mg/dL (7-20) Creatinine 0.6 mg/dL (0.6-1.0) Estimated GFR (Cockcroft-Gault) 143.0 Glucose Level 101 mg/dL (70-99) Calcium Level 8.0 mg/dL (8.5-10.1) Test 07/12/19 07:39 Glucose (Fingerstick) 120 mg/dL (70-99) Microbiology 07/08/19 Blood Culture - Preliminary, Resulted NO GROWTH AFTER 3 DAYS Medications Current Medications Sodium Chloride 1,000 ml @ 1,000 mls/hr 1X ONCE IV Last administered on 07/06/19at 10:14; Start 07/06/19 at 10:15; Stop 07/06/19 at 11:14; Status DC Famotidine (Pepcid Vial) 20 mg 1X ONCE IVP Last administered on 07/06/19at 10:17; Start 07/06/19 at 10:15; Stop 07/06/19 at 10:16; Status DC Ondansetron HCl (Zofran) 4 mg 1X ONCE IV Last administered on 07/06/19at 10:15; Start 07/06/19 at 10:15; Stop 07/06/19 at 10:16; Status DC Haloperidol Lactate (Haldol Inj) 5 mg 1X ONCE IVP Last administered on 07/06/19at 11:36; Start 07/06/19 at 11:15; Stop 07/06/19 at 11:16; Status DC Prochlorperazine Edisylate (Compazine) 10 mg 1X ONCE IV Last administered on 07/06/19at 11:33; Start 07/06/19 at 11:15; Stop 07/06/19 at 11:16; Status DC Insulin Human Regular (HumuLIN R VIAL) 5 unit 1X ONCE IV Last administered on 07/06/19at 11:42; Start 07/06/19 at 11:30; Stop 07/06/19 at 11:31; Status DC Sodium Chloride 1,000 ml @ 125 mls/hr 1X ONCE IV Last administered on 07/06/19at 11:39; Start 07/06/19 at 11:30; Stop 07/06/19 at 19:29; Status DC Metoclopramide HCl (Reglan Vial) 10 mg 1X ONCE IV Last administered on 07/06/19at 13:47; Start 07/06/19 at 14:00; Stop 07/06/19 at 14:01; Status DC Azithromycin (Zithromax) 1,000 mg 1X ONCE PO ; Start 07/06/19 at 14:15; Stop 07/06/19 at 14:16; Status Cancel Metronidazole (Flagyl) 2,000 mg 1X ONCE PO ; Start 07/06/19 at 14:15; Stop 07/06/19 at 14:16; Status Cancel Promethazine HCl (Phenergan Supp) 25 mg 1X ONCE [place] ; Start 07/06/19 at 14:15; Stop 07/06/19 at 14:16; Status DC Metronidazole 100 ml @ 100 mls/hr 1X ONCE IV Last administered on 07/06/19at 15:45; Start 07/06/19 at 14:30; Stop 07/06/19 at 15:29; Status DC Azithromycin 250 ml @ 250 mls/hr 1X ONCE IV Last administered on 07/06/19at 17:25; Start 07/06/19 at 14:30; Stop 07/06/19 at 15:29; Status DC Ondansetron HCl (Zofran) 4 mg PRN Q8HRS PRN IV NAUSEA/VOMITING; Start 07/06/19 at 14:30; Stop 07/07/19 at 14:29; Status UNV Fentanyl Citrate (Fentanyl 2ml Vial) 50 mcg PRN Q1HR PRN IV PAIN Last administered on 07/06/19at 23:36; Start 07/06/19 at 14:30; Stop 07/07/19 at 14:29; Status DC Prochlorperazine Edisylate (Compazine) 10 mg PRN TID PRN IV NAUSEA, 2nd CHOICE; Start 07/06/19 at 14:30; Stop 07/06/19 at 16:41; Status DC Sodium Chloride 1,000 ml @ 75 mls/hr 1X IV ; Start 07/06/19 at 14:30; Stop 07/07/19 at 16:26; Status DC Sodium Chloride (Normal Saline Flush) 3 ml QSHIFT PRN IV AFTER MEDS AND BLOOD DRAWS; Start 07/06/19 at 14:30 Sodium Chloride 1,000 ml @ 100 mls/hr Q10H IV Last administered on 07/06/19at 16:49; Start 07/06/19 at 14:25; Stop 07/08/19 at 13:38; Status DC Multivitamins 10 ml/Thiamine HCl 100 mg/Folic Acid 1 mg/Sodium Chloride 1,011.2 ml @ 125 mls/ hr 1X ONCE IV Last administered on 07/06/19at 15:25; Start 07/06/19 at 14:30; Stop 07/06/19 at 22:35; Status DC Ondansetron HCl (Zofran) 4 mg PRN Q4HRS PRN IV NAUSEA/VOMITING, 1st CHOICE Last administered on 07/11/19at 08:18; Start 07/06/19 at 14:30 Acetaminophen (Tylenol) 650 mg PRN Q4HRS PRN PO TEMP OVER 100.4F OR MILD PAIN; Start 07/06/19 at 14:30 Clonidine HCl (Catapres) 0.1 mg PRN Q6HRS PRN PO SBP>160 OR DBP>90; Start 07/06/19 at 14:30; Stop 07/08/19 at 16:52; Status DC Docusate Sodium (Colace) 100 mg PRN BID PRN PO CONSTIPATION; Start 07/06/19 at 14:30 Albuterol Sulfate (Ventolin Neb Soln) 2.5 mg PRN Q4HRS PRN NEB SHORTNESS OF BREATH; Start 07/06/19 at 14:30 Guaifenesin (Robitussin) 200 mg PRN Q4HRS PRN PO COUGH; Start 07/06/19 at 14:30 Lorazepam (Ativan) 0.5 mg PRN Q4HRS PRN PO ANXIETY / AGITATION Last administered on 07/09/19at 15:57; Start 07/06/19 at 14:30 Enoxaparin Sodium (Lovenox 40mg Syringe) 40 mg Q24H SQ ; Start 07/06/19 at 15:00 Pantoprazole Sodium (PROTONIX VIAL for IV PUSH) 40 mg DAILYAC IVP Last administered on 07/10/19at 08:30; Start 07/06/19 at 16:30; Stop 07/10/19 at 11:23; Status DC Prochlorperazine Edisylate (Compazine) 10 mg PRN Q4HRS PRN IV NAUSEA/VOMITING, 2ND CHOICE Last administered on 07/11/19at 08:55; Start 07/06/19 at 16:45 Insulin Human Lispro (HumaLOG) 0-5 UNITS TIDWMEALS SQ Last administered on 07/09/19at 12:22; Start 07/06/19 at 17:00 Dextrose (Dextrose 50%-Water Syringe) 12.5 gm PRN Q15MIN PRN IV SEE COMMENTS; Start 07/06/19 at 16:45 Insulin Human Isoph/Insulin Regular (HumuLIN 70/30) 10 units BID SQ Last administered on 07/11/19at 22:03; Start 07/06/19 at 21:00 Insulin Human Lispro (HumaLOG) 5 units 1X ONCE SQ Last administered on 07/06/19at 17:32; Start 07/06/19 at 17:30; Stop 07/06/19 at 17:31; Status DC Zolpidem Tartrate (Ambien) 5 mg PRN QHS PRN PO INSOMNIA; Start 07/07/19 at 19:00 Metronidazole (Flagyl) 500 mg Q12HR PO Last administered on 07/07/19at 21:34; Start 07/07/19 at 21:00; Stop 07/09/19 at 19:50; Status DC Ondansetron HCl (Zofran Odt) 4 mg PRN Q6HRS PRN PO NAUSEA/VOMITING Last administered on 07/08/19at 07:56; Start 07/08/19 at 07:30 Prochlorperazine (Compazine) 25 mg PRN Q12HR PRN [place] NAUSEA/VOMITING, 1ST CHOICE Last administered on 07/08/19at 10:09; Start 07/08/19 at 07:45 Promethazine HCl (Phenergan Supp) 25 mg PRN Q6HRS PRN TX NAUSEA/VOMITING, 2ND CHOICE Last administered on 07/08/19at 07:56; Start 07/08/19 at 07:45 Prochlorperazine Edisylate (Compazine) 10 mg PRN Q6HRS PRN IM NAUSEA/VOMITING Last administered on 07/09/19at 09:05; Start 07/08/19 at 13:45 Buspirone HCl (Buspar) 10 mg BID PO Last administered on 07/11/19at 21:58; Start 07/08/19 at 14:00 Multivitamins 10 ml/Thiamine HCl 100 mg/Folic Acid 1 mg/Sodium Chloride 1,011.2 ml @ 100 mls/ hr DAILY IV Last administered on 07/11/19at 08:19; Start 07/09/19 at 09:00; Stop 07/13/19 at 19:07 Multivitamins (Thera M Plus) 1 tab DAILY PO ; Start 07/09/19 at 09:00; Status UNV Folic Acid (Folic Acid) 1 mg DAILY PO ; Start 07/09/19 at 09:00; Status UNV Thiamine HCl 100 mg DAILY IM ; Start 07/09/19 at 09:00; Stop 07/14/19 at 08:59; Status UNV Lorazepam (Ativan) 4 mg PRN Q1HR PRN PO For CIWA 8-14; Start 07/08/19 at 13:45 Lorazepam (Ativan) 8 mg PRN Q1HR PRN PO For CIWA 15 or greater; Start 07/08/19 at 13:45 Lorazepam (Ativan Inj) 2 mg PRN Q1HR PRN IV For CIWA 8-14 Last administered on 07/11/19at 10:09; Start 07/08/19 at 13:45 Lorazepam (Ativan Inj) 4 mg PRN Q1HR PRN IV For CIWA 15 or greater; Start 07/08/19 at 13:45 Diphenhydramine HCl (Benadryl) 25 mg PRN Q15MIN PRN IVP EPS symptoms 2'Haldol admin; Start 07/08/19 at 13:45 Clonidine HCl (Catapres) 0.1 mg PRN Q1HR PRN PO SBP > 180 or DBP > 100, MRX3; Start 07/08/19 at 13:45 Lorazepam (Ativan Inj) 2 mg PRN Q15MIN PRN IV SEE COMMENTS; Start 07/08/19 at 13:45; Status UNV Lorazepam (Ativan Inj) 4 mg PRN Q15MIN PRN IV SEE COMMENTS; Start 07/08/19 at 13:45; Status UNV Potassium Chloride (Klor-Con) 40 meq 1X ONCE PO ; Start 07/08/19 at 13:45; Stop 07/08/19 at 13:51; Status DC Potassium Chloride (Klor-Con) 20 meq DAILYWBKFT PO Last administered on 07/10/19at 08:30; Start 07/09/19 at 08:00 Sodium Chloride 1,000 ml @ 100 mls/hr Q10H IV Last administered on 07/11/19at 21:58; Start 07/08/19 at 13:45 Multivitamins 10 ml/Thiamine HCl 100 mg/Folic Acid 1 mg/Sodium Chloride 1,011.2 ml @ 1,000.088 mls/hr 1X ONCE IV ; Start 07/08/19 at 14:30; Stop 07/08/19 at 15:30; Status DC Metronidazole (Metrogel) 1 simona QHS VG Last administered on 07/11/19at 21:59; Start 07/08/19 at 21:00; Stop 07/12/19 at 20:59 Hydromorphone HCl (Dilaudid) 0.5 mg PRN Q4HRS ONCE IV Last administered on 07/08/19at 17:04; Start 07/08/19 at 17:00; Stop 07/08/19 at 17:01; Status DC Hydromorphone HCl (Dilaudid) 0.5 mg PRN Q4HRS PRN IV PAIN Last administered on 07/11/19at 08:17; Start 07/08/19 at 18:30 Ceftriaxone Sodium (Rocephin) 1 gm Q24H IVP Last administered on 07/11/19at 10:40; Start 07/10/19 at 11:00 Pantoprazole Sodium (Protonix) 40 mg DAILYAC PO ; Start 07/11/19 at 07:30; Stop 07/11/19 at 11:35; Status DC Pantoprazole Sodium (PROTONIX VIAL for IV PUSH) 40 mg BIDAC IVP Last admin istered on 07/12/19at 06:47; Start 07/11/19 at 16:30 Potassium Chloride (Klor-Con) 40 meq 1X ONCE PO ; Start 07/12/19 at 06:30; Stop 07/12/19 at 06:31; Status Cancel Potassium Chloride (Klor-Con) 40 meq 1X ONCE PO ; Start 07/12/19 at 09:00; Stop 07/12/19 at 09:01; Status DC Potassium Chloride (Klor-Con) 40 meq 1X ONCE PO Last administered on 07/12/19at 06:45; Start 07/12/19 at 07:00; Stop 07/12/19 at 07:01; Status DC Barium Sulfate (Liquid E-Z Paque) 355 ml 1X ONCE PO ; Start 07/12/19 at 07:45; Stop 07/12/19 at 07:46; Status DC Barium Sulfate (E-Z-Hd) 340 gm 1X ONCE PO ; Start 07/12/19 at 07:45; Stop 07/12/19 at 07:46; Status DC Simethicone/ Sodium Bicarb/ Citric Ac (E-Z-Gas) 1 packet 1X ONCE PO ; Start 07/12/19 at 07:45; Stop 07/12/19 at 07:46; Status DC Active Scripts Active Reported Humulin N (Nph, Human Insulin Isophane) 100 Unit/1 Ml Vial 10 Unit SQ BID Vitals/I & O Vital Sign - Last 24 Hours 07/11/19 07/11/19 07/11/19 07/11/19 09:35 11:00 15:00 19:00 Temp 98.0 98.1 98.0 98.0 98.1 98.0 Pulse 94 77 90 Resp 16 14 17 B/P (MAP) 135/91 (106) 132/88 (103) 115/78 (90) Pulse Ox 100 98 100 98 O2 Delivery Room Air Room Air Room Air Room Air 07/11/19 07/11/19 07/12/19 07/12/19 20:00 23:00 03:00 07:00 Temp 98.0 98.2 97.3 98.0 98.2 97.3 Pulse 82 74 78 Resp 17 17 18 B/P (MAP) 141/94 (110) 111/79 (90) 124/85 (98) Pulse Ox 100 97 96 O2 Delivery Room Air Room Air Room Air Room Air Intake and Output 07/11/19 07/11/19 07/12/19 15:00 23:00 07:00 Intake Total 350 ml 1611.2 ml 360 ml Output Total 2 ml Balance 348 ml 1611.2 ml 360 ml SHELLEY WATERS MD Jul 12, 2019 09:33
[2019-07-12 11:00] VITALS: BP 140/90
[2019-07-12] MEDS: busPIRone 10 MG TABLET. PO SCH (11:39)
[2019-07-12] MEDS: MULTIVIT INFUSN,ADULT 4,VIT K 10 ML, THIAMINE INJ 100 MG, FOLIC ACID INJ 1 MG in IV NOR... IV SCH (11:40)
[2019-07-12] MEDS: cefTRIAXone IV Push 1 GM VIAL. IVP SCH (11:41)
[2019-07-12] MEDS: INSULIN NPH/REG INSULIN 70/30 300 UNITS/3 ML INSULN.PEN. SQ SCH (11:57)
[2019-07-12] MEDS ORDERED: BUSP10TA PO (12:55)
[2019-07-12] MEDS ORDERED: METR70GE2 VG (12:55)
[2019-07-12] MEDS ORDERED: ACET325T9 PO (12:55)
[2019-07-12] MEDS ORDERED: ALBU2.5V8 NEB (12:55)
--- NOTE | 2019-07-12 12:56 | DISCH ---
DISCHARGE INSTRUCTIONS Condition on Discharge Condition on Discharge: Stable Activity After Discharge Activity Instructions for Disc: Activity as tolerated Driving Instructions after Dis: Do not drive Diet after Discharge Diet after Discharge: Diabetic No Calorie Level Checks after Discharge Checks after discharge: Check blood press - daily Contacting the DR. after DC Call your doctor for: If your condition worsens SHELLEY WATERS MD Jul 12, 2019 12:56
--- NOTE | 2019-07-12 14:50 | NUR ---
Discharge Note: Patient was discharged home with self care. Patients mother at the bedside at the time of discharge education. Patient did not want to wait or be re-stuck for a potassium redraw. Patient stated she was going to leave either way. Patient was given discharge summary/instructions, follow-ups, and educational material. Patient did not have any further questions or concerns. Patient ambulated to the main entrance with all personal belongings accompanied by CLOTH HAULER, where her mother was waiting for her to take her home.
--- NOTE | 2019-07-12 15:02 | RAD ---
Examination: UPPER GI W/SBFT History: Nausea and vomiting. Comparison/Correlation: None Findings: [employer] view demonstrates moderate quantity of stool in the colon. No suspicious abdominal calcifications. Pelvic calcification probably represent phleboliths. Fluoroscopy was utilized for 1.5 minutes. A total of 14 fluoroscopic images were acquired. Single contrast upper GI and small bowel series exam was performed. The patient reported nausea and vomiting and as a result air contrast exam was not attempted. Also, prone Valsalva drinking views were not performed. Normal distention of the esophagus is present. No esophageal webs, strictures, or diverticuli. Contrast flows freely into the stomach. Adequate distention of the stomach with contrast is noted. Gastric fold pattern is unremarkable. Contrast flows freely into the duodenum. Normal duodenal bulb distention noted. Duodenal sweep is unremarkable. No suspicious filling defects involving small bowel identified. No small bowel strictures. Terminal ileum is unremarkable. Contrast reaches the cecum by one hour and 30 minutes. Impression: No significant delay in transit of contrast from the stomach to the cecum. No suspicious findings. Electronically signed by: Kobe Mckinley MD (07/12/2019 2:58 PM) [facility]
--- NOTE | 2019-07-31 22:46 | PDOC3 ---
Discharge Summary Date of Admission: Jul 06, 2019 Date of Discharge: Jul 12, 2019 Follow-Up: 1-2 days Admitting Diagnosis comment: discharge dx Assessment/Plan IMPRESSION 1. INTRACTABLE NAUSEA, VOMITING, slow to resolve on ct exam, Solid abdominal viscera not well evaluated in the absence of contrast material. No apparent attenuation abnormality of the liver or spleen. Pancreas, adrenal glands and kidneys are unremarkable. No hydronephrosis. No calcific renal stone. The gallbladder is not identified and may be collapsed or surgically absent. There is some focal fat near the falciform ligament.Unopacified GI tract normal in caliber and contour. No focal bowel wall thickening. No inflammatory stranding in the mesentery. The appendix is not clearly identified 2. THC ABUSE 3. DEHYDRATION 4. DIABETES .///poorly controlled// gastroparesis. Medical therapy for symptom control. US assess for GB disease 5. leukocytosis without fever 6. DEHYDRATION 07-11 HAD ONE EPISODE OF EMESIS THIS am, mod pain noted 07/12 better, eating wants to go home PLAN ADMIT IV FLUID SUPPORT, d/c ACCUCHECKS SS INSULIN DVT PROPHYLAXIS GI CONSULT emperic iv rocephin d/c 07/08 pt states she cannot keep anything down by mouth today, iv out, will restar t banana bag, CIWA protocol, very anxious d/w faily in room 07/09 pt wants to leave ama, changed her mind, agrees to MIDLINE IV d/w mother in room 07/10 Did not eat much breakfast, seems depressed 07-11. emesis this AM X 1 35 MIN PT EXAM, CHART REVIEW, d/c planning time> 50% OF TIME SPENT WITH EXAM, CHART REVIEW, PT CARE COORDINATION FINAL DIAGNOSIS Problems Medical Problems: (1) Hyperglycemia Status: Acute (2) Nausea and vomiting Status: Acute (3) Trichomonas vaginitis Status: Acute Brief Hospital Course Ms. Vences is a 28 old [sex] who presented with [intractable vomiting ] CONDITION AT DISCHARGE: Improved Discharge Medications Current Medications Sodium Chloride 1,000 ml @ 1,000 mls/hr 1X ONCE IV Last administered on 07/06/19at 10:14; Start 07/06/19 at 10:15; Stop 07/06/19 at 11:14; Status DC Famotidine (Pepcid Vial) 20 mg 1X ONCE IVP Last administered on 07/06/19at 10:17; Start 07/06/19 at 10:15; Stop 07/06/19 at 10:16; Status DC Ondansetron HCl (Zofran) 4 mg 1X ONCE IV Last administered on 07/06/19at 10:15; Start 07/06/19 at 10:15; Stop 07/06/19 at 10:16; Status DC Haloperidol Lactate (Haldol Inj) 5 mg 1X ONCE IVP Last administered on 07/06/19at 11:36; Start 07/06/19 at 11:15; Stop 07/06/19 at 11:16; Status DC Prochlorperazine Edisylate (Compazine) 10 mg 1X ONCE IV Last administered on 07/06/19at 11:33; Start 07/06/19 at 11:15; Stop 07/06/19 at 11:16; Status DC Insulin Human Regular (HumuLIN R VIAL) 5 unit 1X ONCE IV Last administered on 07/06/19at 11:42; Start 07/06/19 at 11:30; Stop 07/06/19 at 11:31; Status DC Sodium Chloride 1,000 ml @ 125 mls/hr 1X ONCE IV Last administered on 07/06/19at 11:39; Start 07/06/19 at 11:30; Stop 07/06/19 at 19:29; Status DC Metoclopramide HCl (Reglan Vial) 10 mg 1X ONCE IV Last administered on 07/06/19at 13:47; Start 07/06/19 at 14:00; Stop 07/06/19 at 14:01; Status DC Azithromycin (Zithromax) 1,000 mg 1X ONCE PO ; Start 07/06/19 at 14:15; Stop 07/06/19 at 14:16; Status Cancel Metronidazole (Flagyl) 2,000 mg 1X ONCE PO ; Start 07/06/19 at 14:15; Stop 07/06/19 at 14:16; Status Cancel Promethazine HCl (Phenergan Supp) 25 mg 1X ONCE NE ; Start 07/06/19 at 14:15; Stop 07/06/19 at 14:16; Status DC Metronidazole 100 ml @ 100 mls/hr 1X ONCE IV Last administered on 07/06/19at 15:45; Start 07/06/19 at 14:30; Stop 07/06/19 at 15:29; Status DC Azithromycin 250 ml @ 250 mls/hr 1X ONCE IV Last administered on 07/06/19at 17:25; Start 07/06/19 at 14:30; Stop 07/06/19 at 15:29; Status DC Ondansetron HCl (Zofran) 4 mg PRN Q8HRS PRN IV NAUSEA/VOMITING; Start 07/06/19 at 14:30; Stop 07/07/19 at 14:29; Status UNV Fentanyl Citrate (Fentanyl 2ml Vial) 50 mcg PRN Q1HR PRN IV PAIN Last administered on 07/06/19at 23:36; Start 07/06/19 at 14:30; Stop 07/07/19 at 14:29; Status DC Prochlorperazine Edisylate (Compazine) 10 mg PRN TID PRN IV NAUSEA, 2nd CHOICE; Start 07/06/19 at 14:30; Stop 07/06/19 at 16:41; Status DC Sodium Chloride 1,000 ml @ 75 mls/hr 1X IV ; Start 07/06/19 at 14:30; Stop 07/07/19 at 16:26; Status DC Sodium Chloride (Normal Saline Flush) 3 ml QSHIFT PRN IV AFTER MEDS AND BLOOD DRAWS; Start 07/06/19 at 14:30; Stop 07/12/19 at 14:57; Status DC Sodium Chloride 1,000 ml @ 100 mls/hr Q10H IV Last administered on 07/06/19at 16:49; Start 07/06/19 at 14:25; Stop 07/08/19 at 13:38; Status DC Multivitamins 10 ml/Thiamine HCl 100 mg/Folic Acid 1 mg/Sodium Chloride 1,011.2 ml @ 125 mls/ hr 1X ONCE IV Last administered on 07/06/19at 15:25; Start 07/06/19 at 14:30; Stop 07/06/19 at 22:35; Status DC Ondansetron HCl (Zofran) 4 mg PRN Q4HRS PRN IV NAUSEA/VOMITING, 1st CHOICE Last administered on 07/11/19at 08:18; Start 07/06/19 at 14:30; Stop 07/12/19 at 14:57; Status DC Acetaminophen (Tylenol) 650 mg PRN Q4HRS PRN PO TEMP OVER 100.4F OR MILD PAIN; Start 07/06/19 at 14:30; Stop 07/12/19 at 14:57; Status DC Clonidine HCl (Catapres) 0.1 mg PRN Q6HRS PRN PO SBP>160 OR DBP>90; Start 07/06/19 at 14:30; Stop 07/08/19 at 16:52; Status DC Docusate Sodium (Colace) 100 mg PRN BID PRN PO CONSTIPATION; Start 07/06/19 at 14:30; Stop 07/12/19 at 14:57; Status DC Albuterol Sulfate (Ventolin Neb Soln) 2.5 mg PRN Q4HRS PRN NEB SHORTNESS OF BREATH; Start 07/06/19 at 14:30; Stop 07/12/19 at 14:57; Status DC Guaifenesin (Robitussin) 200 mg PRN Q4HRS PRN PO COUGH; Start 07/06/19 at 14:30; Stop 07/12/19 at 14:57; Status DC Lorazepam (Ativan) 0.5 mg PRN Q4HRS PRN PO ANXIETY / AGITATION Last administered on 07/09/19at 15:57; Start 07/06/19 at 14:30; Stop 07/12/19 at 14:57; Status DC Enoxaparin Sodium (Lovenox 40mg Syringe) 40 mg Q24H SQ ; Start 07/06/19 at 15: 00; Stop 07/12/19 at 14:57; Status DC Pantoprazole Sodium (PROTONIX VIAL for IV PUSH) 40 mg DAILYAC IVP Last administered on 07/10/19at 08:30; Start 07/06/19 at 16:30; Stop 07/10/19 at 11:23; Status DC Prochlorperazine Edisylate (Compazine) 10 mg PRN Q4HRS PRN IV NAUSEA/VOMITING, 2ND CHOICE Last administered on 07/11/19at 08:55; Start 07/06/19 at 16:45; Stop 07/12/19 at 14:57; Status DC Insulin Human Lispro (HumaLOG) 0-5 UNITS TIDWMEALS SQ Last administered on 07/12/19at 11:55; Start 07/06/19 at 17:00; Stop 07/12/19 at 14:57; Status DC Dextrose (Dextrose 50%-Water Syringe) 12.5 gm PRN Q15MIN PRN IV SEE COMMENTS; Start 07/06/19 at 16:45; Stop 07/12/19 at 14:57; Status DC Insulin Human Isoph/Insulin Regular (HumuLIN 70/30) 10 units BID SQ Last administered on 07/12/19at 11:57; Start 07/06/19 at 21:00; Stop 07/12/19 at 14:57; Status DC Insulin Human Lispro (HumaLOG) 5 units 1X ONCE SQ Last administered on 07/06/19at 17:32; Start 07/06/19 at 17:30; Stop 07/06/19 at 17:31; Status DC Zolpidem Tartrate (Ambien) 5 mg PRN QHS PRN PO INSOMNIA; Start 07/07/19 at 19:00; Stop 07/12/19 at 14:57; Status DC Metronidazole (Flagyl) 500 mg Q12HR PO Last administered on 07/07/19at 21:34; Start 07/07/19 at 21:00; Stop 07/09/19 at 19:50; Status DC Ondansetron HCl (Zofran Odt) 4 mg PRN Q6HRS PRN PO NAUSEA/VOMITING Last administered on 07/08/19at 07:56; Start 07/08/19 at 07:30; Stop 07/12/19 at 14 :57; Status DC Prochlorperazine (Compazine) 25 mg PRN Q12HR PRN NE NAUSEA/VOMITING, 1ST CHOICE Last administered on 07/08/19at 10:09; Start 07/08/19 at 07:45; Stop 07/12/19 at 14:57; Status DC Promethazine HCl (Phenergan Supp) 25 mg PRN Q6HRS PRN NE NAUSEA/VOMITING, 2ND CHOICE Last administered on 07/08/19at 07:56; Start 07/08/19 at 07:45; Stop 07/12/19 at 14:57; Status DC Prochlorperazine Edisylate (Compazine) 10 mg PRN Q6HRS PRN IM NAUSEA/VOMITING Last administered on 07/09/19at 09:05; Start 07/08/19 at 13:45; Stop 07/12/19 at 14:57; Status DC Buspirone HCl (Buspar) 10 mg BID PO Last administered on 07/12/19at 11:39; Start 07/08/19 at 14:00; Stop 07/12/19 at 14:57; Status DC Multivitamins 10 ml/Thiamine HCl 100 mg/Folic Acid 1 mg/Sodium Chloride 1,011.2 ml @ 100 mls/ hr DAILY IV Last administered on 07/12/19at 11:40; Start 07/09/19 at 09:00; Stop 07/12/19 at 14:57; Status DC Multivitamins (Thera M Plus) 1 tab DAILY PO ; Start 07/09/19 at 09:00; Status UNV Folic Acid (Folic Acid) 1 mg DAILY PO ; Start 07/09/19 at 09:00; Status UNV Thiamine HCl 100 mg DAILY IM ; Start 07/09/19 at 09:00; Stop 07/14/19 at 08:59; Status UNV Lorazepam (Ativan) 4 mg PRN Q1HR PRN PO For CIWA 8-14; Start 07/08/19 at 13:45; Stop 07/12/19 at 14:57; Status DC Lorazepam (Ativan) 8 mg PRN Q1HR PRN PO For CIWA 15 or greater; Start 07/08/19 at 13:45; Stop 07/12/19 at 14:57; Status DC Lorazepam (Ativan Inj) 2 mg PRN Q1HR PRN IV For CIWA 8-14 Last administered on 07/11/19at 10:09; Start 07/08/19 at 13:45; Stop 07/12/19 at 14:57; Status DC Lorazepam (Ativan Inj) 4 mg PRN Q1HR PRN IV For CIWA 15 or greater; Start 07/08/19 at 13:45; Stop 07/12/19 at 14:57; Status DC Diphenhydramine HCl (Benadryl) 25 mg PRN Q15MIN PRN IVP EPS symptoms 2'Haldol admin; Start 07/08/19 at 13:45; Stop 07/12/19 at 14:57; Status DC Clonidine HCl (Catapres) 0.1 mg PRN Q1HR PRN PO SBP > 180 or DBP > 100, MRX3; Start 07/08/19 at 13:45; Stop 07/12/19 at 14:57; Status DC Lorazepam (Ativan Inj) 2 mg PRN Q15MIN PRN IV SEE COMMENTS; Start 07/08/19 at 13:45; Status UNV Lorazepam (Ativan Inj) 4 mg PRN Q15MIN PRN IV SEE COMMENTS; Start 07/08/19 at 13:45; Status UNV Potassium Chloride (Klor-Con) 40 meq 1X ONCE PO ; Start 07/08/19 at 13:45; Stop 07/08/19 at 13:51; Status DC Potassium Chloride (Klor-Con) 20 meq DAILYWBKFT PO Last administered on 07/10/19at 08:30; Start 07/09/19 at 08:00; Stop 07/12/19 at 14:57; Status DC Sodium Chloride 1,000 ml @ 100 mls/hr Q10H IV Last administered on 07/11/19at 21:58; Start 07/08/19 at 13:45; Stop 07/12/19 at 14:57; Status DC Multivitamins 10 ml/Thiamine HCl 100 mg/Folic Acid 1 mg/Sodium Chloride 1,011.2 ml @ 1,000.088 mls/hr 1X ONCE IV ; Start 07/08/19 at 14:30; Stop 07/08/19 at 15:30; Status DC Metronidazole (Metrogel) 1 josiah QHS VG Last administered on 07/11/19at 21:59; Start 07/08/19 at 21:00; Stop 07/12/19 at 14:57; Status DC Hydromorphone HCl (Dilaudid) 0.5 mg PRN Q4HRS ONCE IV Last administered on 07/08/19at 17:04; Start 07/08/19 at 17:00; Stop 07/08/19 at 17:01; Status DC Hydromorphone HCl (Dilaudid) 0.5 mg PRN Q4HRS PRN IV PAIN Last administered on 07/11/19at 08:17; Start 07/08/19 at 18:30; Stop 07/12/19 at 14:57; Status DC Ceftriaxone Sodium (Rocephin) 1 gm Q24H IVP Last administered on 07/12/19at 11:41; Start 07/10/19 at 11:00; Stop 07/12/19 at 14:57; Status DC Pantoprazole Sodium (Protonix) 40 mg DAILYAC PO ; Start 07/11/19 at 07:30; Stop 07/11/19 at 11:35; Status DC Pantoprazole Sodium (PROTONIX VIAL for IV PUSH) 40 mg BIDAC IVP Last administered on 07/12/19at 06:47; Start 07/11/19 at 16:30; Stop 07/12/19 at 14:57; Status DC Potassium Chloride (Klor-Con) 40 meq 1X ONCE PO ; Start 07/12/19 at 06:30; Stop 07/12/19 at 06:31; Status Cancel Potassium Chloride (Klor-Con) 40 meq 1X ONCE PO Last administered on 07/12/19at 11:40; Start 07/12/19 at 09:00; Stop 07/12/19 at 09:01; Status DC Potassium Chloride (Klor-Con) 40 meq 1X ONCE PO Last administered on 07/12/19at 06:45; Start 07/12/19 at 07:00; Stop 07/12/19 at 07:01; Status DC Barium Sulfate (Liquid E-Z Paque) 355 ml 1X ONCE PO Last administered on at 09:15; Start 07/12/19 at 07:45; Stop 07/12/19 at 07:46; Status DC Barium Sulfate (E-Z-Hd) 340 gm 1X ONCE PO ; Start 07/12/19 at 07:45; Stop 07/12/19 at 07:46; Status DC Simethicone/ Sodium Bicarb/ Citric Ac (E-Z-Gas) 1 packet 1X ONCE PO ; Start 1 at 07:45; Stop 07/12/19 at 07:46; Status DC Active Scripts Active Metronidazole 70 Gm Gel.w.appl 1 Josiah VG QHS 5 Days Buspirone Hcl 10 Mg Tablet 10 Mg PO BID 30 Days Tylenol (Acetaminophen) 325 Mg Tablet 650 Mg PO PRN Q4HRS PRN 30 Days Proair Hfa (Albuterol Sulfate) 8.5 Gm Hfa.aer.ad 2.5 Mg NEB PRN Q4HRS PRN 14 Days Reported Humulin N (Nph, Human Insulin Isophane) 100 Unit/1 Ml Vial 10 Unit SQ BID Allergies Allergies Coded Allergies Type Severity Reaction Last Updated Verified No Known Drug Allergies 01/23/16 No Disposition/Orders: D/C to Home SHELLEY WATERS MD Jul 31, 2019 22:46
== END 2019-07-12 14:56 | disposition home or self-care (01) | DRG 74 ==
LOC: ER 09:17 → 5 SOUTH 14:14
PROVIDERS: ADMIT Family Medicine; ATTEND Family Medicine
DX: E10.43 Type 1 diabetes mellitus with diabetic autonomic (poly)neuropathy (principal); K92.0 Hematemesis; N39.0 Urinary tract infection, site not specified; A59.01 Trichomonal vulvovaginitis; B39.9 Histoplasmosis, unspecified; E86.0 Dehydration; F12.10 Cannabis abuse, uncomplicated; F17.210 Nicotine dependence, cigarettes, uncomplicated; K31.84 Gastroparesis; N83.209 Unspecified ovarian cyst, unspecified side; Z79.4 Long term (current) use of insulin; Z82.49 Family history of ischemic heart disease and other diseases of the circulatory system; Z87.440 Personal history of urinary (tract) infections; Z79.899 Other long term (current) drug therapy
CPT/HCPCS: 36415; 74022; 74176; 74245; 76705; 80048; 80053; 80307; 81001; 81025; 82962; 83036; 83605; 83690; 85007; 85025; 87040; 87086; 96361; 96365; 96368; 96375; C9113; G0480; J0456; J0696; J0780; J1170; J1630; J1815; J2060; J2405; J2765; J3010; J3490; J7030; Q0162; 99285-25; G0378